=== PATIENT | male | born 1940 | race Caucasian/White ===

== ENCOUNTER → 2019-05-01 13:28 | Outpatient (BNVA) | payer MEDICARE, SELFPAY | PROVIDERS: Family Provider Family Medicine; PCP Family Medicine; Visit Provider Specialist | DX: G30.9 Alzheimer's disease, unspecified (principal); F02.80 Dementia in other diseases classified elsewhere, unspecified severity, without behavioral disturbance, psychotic disturbance, mood disturbance, and anxiety; Z87.891 Personal history of nicotine dependence; Z86.73 Personal history of transient ischemic attack (TIA), and cerebral infarction without residual deficits | CPT/HCPCS: 99214 ==

== ENCOUNTER 2019-09-24 12:30 | Outpatient (CLI) | payer MEDICARE, SELFPAY ==
--- NOTE | 2019-09-24 13:08 | MR_ITS ---
WS: [id number] MRI HEAD WITH CONTRAST WITH ATTENTION TO THE INTERNAL AUDITORY CANALS TECHNIQUE: Sagittal T1, T2 axial, T2 axial flair, axial susceptibility weighted imaging, axial diffus ion weighted images, and coronal T2 images were obtained. Pre and post T1 axial and post T1 coronal i mages. ADC and FSPGR images. Post gadolinium images with attention to the internal auditory canals. A xial fiesta imaging. CLINICAL INFORMATION: MIXED CONDUCTIVE AND SENSORINEURAL HEARING LOSS COMPARISON: None. FINDINGS: No evidence of restricted diffusion to suggest acute ischemia. Ventricular system and basal cisterns are patent. Advanced small vessel changes with moderate to advanced parenchymal volume loss. Chronic infarct with encephalomalacia and gliosis involving the left frontal lobe and left parasagittal occip ital lobe. A few tiny periventricular lacunar infarcts. Opacification right mastoid air cells. Loss of the left ICA flow at the skull base likely due to watch adjuster jak occlusion. Normal basilar and right ICA flow void. Paranasal sinuses are well aerated. Prominent pannus at the C1-2 articulation. Small left parotid lesion likely incidental adenoma or intraparotid lymph node measuring 6 mm. Proximal 7th and 8th cranial nerves are normal in appearance. Normal trigeminal nerve root entry zone s. Moderate symmetric atrophy involving the temporal lobes and hippocampal formations. Normal optic c hiasm and pituitary infundibulum. Normal visualized dural venous sinuses. No abnormal intracranial en hancement. MR/MR iac's wo/w con* [id number] IMPRESSION: 1. No evidence of restricted diffusion to suggest acute ischemia. 2. No evidence of enhancing IAC or CP angle mass. Normal trigeminal nerve root entry zones. 3. Opacification right mastoid air cells. 4. Advanced small vessel changes with advanced parenchymal volume loss. 5. Chronic infarct with encephalomalacia and gliosis described above. 6. 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
[2019-09-24 13:56] LABS: Blood Urea Nitrogen 8 mg/dL (8-23)
== END 2019-09-24 12:31 | disposition home or self-care (01) ==
LOC: RADWPI 12:51
PROVIDERS: Family Provider Family Medicine; PCP Family Medicine; Visit Provider Specialist
DX: H90.6 Mixed conductive and sensorineural hearing loss, bilateral (principal); G93.89 Other specified disorders of brain; I65.22 Occlusion and stenosis of left carotid artery
CPT/HCPCS: 70553; 82565; 84520; A9579

== ENCOUNTER 2020-01-03 06:53 | Day surgery (SDC) | payer MEDICARE, SELFPAY ==
[2020-01-02 14:10] VITALS: BMI 19.8
[2020-01-03] VITALS (8 sets, daily range): BP systolic 120–178; BP diastolic 72–96; PULSE 75–121; RESP 16–22; TEMP 36.6–37; O2SAT 92–99
[2020-01-03] MEDS: sodium chloride 0.9% 1,000 ML 30 ML IV (07:38)
--- NOTE | 2020-01-03 07:53 | ECG_ITS ---
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 Measurements Intervals Tucker Rate: 72 P: -56 DE: 169 QRS: -2 QRSD: 81 T: 54 QT: 388 QTc: 426 Interpretive Statements SINUS RHYTHM WITH SINUS ARRHYTHMIA SEPTAL MYOCARDIAL INFARCTION [40+ ms Q WAVE IN V1/V2], OF INDETERMINATE AGE Compared to ECG 11/07/2018 16:49:53 Myocardial infarct finding now present Electronically Signed On 01-04-2020 8:25:15 CDT by Lenka Ann M.D. [id number]
--- NOTE | 2020-01-03 07:54 | ANES.PREANE2 ---
Pre-Anesthetic Assessment Pre-Anesthetic Assessment: Height/Weight: Height 1.73 m Weight 58.967 kg Temp Pulse Resp BP Pulse Ox 97.9 F 75 18 178/95 93 01/03/20 07:17 01/03/20 07:17 01/03/20 07:17 01/03/20 07:17 01/03/20 07:17 Preop Diagnosis: LUNG MALIGNANCY Proposed Procedure: Operation Date: 01/03/20 08:25 Proposed Procedures p Ebus(Not Applicable) - Paty Gan MD Familial anesthetic complications: None Was Beta Kamini taken within 24 hours: N/A Last intake: Intake Last Liquid Date 01/02/20 Last Liquid Time 22:00 Last Solid Date 01/02/20 Last Solid Time 22:00 Social: Social History: No alcohol Comment: former smoker Exam: Pre-Anes Outpt Exam: alert, oriented x 3, clear to auscultation bilaterally and regular rate & rhythm Airway: Cervical ROM: WNL MP: 2 Dentition: False Pulmonary: Pulmonary: COPD (severe with decreased DLCO) Comments: lung mass CV/HEM: CV/HEM: HTN Neuropsych: Neuropsych: CVA and Dementia Comments: 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 Anesthetic Plan: ASA status: 4 Anesthesia: General Risk of > 500 ml blood loss (7ml/kg in children): No Meds/Allergies Current Medications: Current Medications Generic Name Dose Route Start Last Admin Trade Name Freq PRN Reason Stop Dose Admin Sodium Chloride 1,000 mls @ 30 ml s/hr 01/03/20 07:15 01/03/20 07:38 Sodium Chloride 0.9% IV 01/04/20 07:14 30 mls/hr .Q24H RIMA Administration PFSH Anesthesia PFSH: Medical History (Updated 12/11/19 @ 16:53 by Aleksandar Philippe MD) Carotid artery stenosis COPD (chronic obstructive pulmonary disease) Stroke Family History Other CAD (coronary artery disease) Cancer Social History Smoking and tobacco status: former smoker Quit status (tobacco): has quit using tobacco Year quit tobacco: 1983 - 2PPD x 40 Years Alcohol intake: former 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
--- NOTE | 2020-01-03 09:40 | P.HP_ITS ---
Same Day Surgery H&P Indication for Procedure/HPI DATE OF PROCEDURE: January 03, 2020 CHIEF COMPLAINT/INDICATIONFOR SURGICAL PROCEDURE: This is an 79-year-old gentleman with left lung mass suspicious for lung malignancy coming in for bronchoscopic evaluation. The patient has an extensive history of smoking. He smoked 2 packs/day for 25 years. The patient has a diagnosis of COPD. He gave history of significant weight loss. PREOP DIAGNOSIS: LUNG MALIGNANCY PLANNED PROCEDRUE: Bronchoscopy with inspection of the airway, endobronchial sound guided transbronchial needle aspiration of lymph nodes Operation Date: 01/03/20 08:25 Proposed Procedures p Ebus(Not Applicable) - Paty Gan MD Medications/Allergies* Home Medications Medication Instructions Recorded Confirmed Type albuterol sulfate 90 mcg/actuation 2 puff INHALATION Q6H PRN 05/01/19 01/03/20 History aerosol inhaler fluticasone furoate 100 1 inh INHALATION Q24H 05/01/19 01/03/20 History mcg-vilanterol 25 mcg/dose inhalation powder fluticasone propionate 50 1 spray INTRANASAL Q12H 05/01/19 01/03/20 History mcg/actuation nasal spray,suspension amlodipine 5 mg tablet 5 mg PO DAILY tab 06/05/19 01/03/20 History donepezil 5 mg tablet 5 mg PO DAILY tab 06/05/19 01/03/20 History pantoprazole 40 mg tablet,delayed 40 mg PO DAILY tab 06/05/19 01/03/20 History release simvastatin 40 mg tablet 40 mg PO DAILY tab 06/05/19 01/03/20 History Allergies/Adverse Reactions Allergy/AdvReac Type Severity Reaction Status Date / Time No Known Allergies Allergy Verified 01/02/20 14:01 Current Medications: Generic Name Dose Route Start Last Admin Trade Name Freq PRN Reason Stop Dose Admin Sodium Chloride 1,000 mls @ 30 mls/hr 01/03/20 07:15 01/03/20 07:38 Sodium Chloride 0.9% IV 01/04/20 07:14 30 mls/hr .Q24H RIMA Administration Pertinent History/Comorbid Conditions* Medical History (Updated 12/11/19 @ 16:53 by Aleksandar Philippe MD) Carotid artery stenosis COPD (chronic obstructive pulmonary disease) Stroke Family History (Updated 06/05/19 @ 13:41 by Thelma Carroll RN) CAD (coronary artery disease) Cancer Social History Smoking and tobacco status: former smoker Quit status (tobacco): has quit using tobacco Year quit tobacco: 1983 - 2PPD x 40 Years Alcohol intake: former Year of sobriety/quit date alcohol: 1980 Lives independently: Yes Household members: spouse Marital status: service: Yes Current occupational status: retired History of recent travel: No Current gender identity: Male Pertinent Exam Findings alert, oriented x 3, clear to auscultation bilaterally and regular rate & rhythm Recommendations Surgery/Procedure today Coding Level of Care Code Acute Portainer Operator for Valdemar Hussein
[2020-01-03] MEDS: lidocaine 1% INJ 20 mL XX (10:03)
--- NOTE | 2020-01-03 10:58 | PC.NURSE ---
EBUS BALLOON REMOVED INTACT
--- NOTE | 2020-01-03 11:00 | P.PTHFZ_ITS ---
Endobronchial Ultrasound Specimen(s): Lymph node station 7 and Lymph node station 10L Gross: 4 Difquick slides, 2 cc material blood and contents. Preliminary Impression: A. Lymph node, station 7, FNA biopsy: - Few epithelioid clusters with low grade cytology. - Lymphoid material identified (sat isfactory). - Background of benign ciliated bronchial epithelial cells. B. Lymph node, 10L, FNA biopsy: - No malignancy identified. - Scant material with a few scattered mononuclear cells - Specimen Information Pathologist: Christie Peck Date: 01/03/20 Specimen reported at what time: 10:55 - Clinician Specimen collection time: 10:50 Clinician reported to: Paty Gan
--- NOTE | 2020-01-03 11:04 | PM.OP ---
Operative Report Date of procedure: January 03, 2020 Pre-op Diagnosis: LUNG MALIGNANCY Post-op diagnosis: same Brief History: 79-year-old gentleman coming in for bronchoscopic evaluation for suspected lung malignancy. Procedure: Name of the procedure: Bronchoscopy with inspection of the airway, endobronchial ultrasound-guided transbronchial needle aspiration of lymph nodes and control of bleeding. Indication: Left hilar lung mass Anesthesia: General anesthesia. Local anesthesia: The leticia in the right and left mainstem bronchi were anesthetized with 1% lidocaine, 3 mL. Description of the procedure: The procedure was explained to the patient and the consent was obtained. The patient was brought to the OR. The patient underwent endotracheal intubation for general anesthesia. Following induction of general anesthesia, the bronchoscope was advanced through the ET tube. The lower trachea appeared to be normal. The leticia was sharp. The leticia, the right and left mainstem bronchi are anesthetized with 1% lidocaine. In a systematic manner bilateral bronchial tree was then examined. The bronchoscope was advanced into the left mainstem bronchus. There was no erythema,mucus and areas of cobblestoning. The left mainstem bronchus appeared to be narrowed due to extrinsic compression. The airway mucosa bled easily to touch from the bronchoscope. There is no endobronchial lesion, active bleeding or mucous plug. The bronchoscope was then introduced into the right mainstem bronchus. The right upper lobe, right middle lobe and right lower lobe bronchi were examined up to the third subsegmental level and no abnormalities were identified. The endobronchial ultrasound was introduced through the ET tube. Left hilar and mediastinal lymphadenopathy was identified. Fine-needle aspiration was performed from station 7 and 10 L. The bronchoscope was reintroduced. There was no significant or active bleeding. Samples: 1. The fine-needle aspiration from the aforementioned lymph node stations are sent for cytology. Complications: There was no immediate complications. The patient was extubated and brought to the PACU in stable condition.
--- NOTE | 2020-01-03 14:34 | ANE.PACU2 ---
Inpatient post-anesthesia follow up: Airway intact: Yes Vital signs: Temperature 98.6 F Pulse Rate 101 Respiratory Rate 20 Blood Pressure 120/75 Pulse Oximetry 98 Oxygen Delivery Me thod Room Air Oxygen Flow Rate 8 Fraction of Inspir ed Oxygen Hydration adequate: Yes Nausea and vomiting: No Pain level: 1 Mental status: Baseline
== END 2020-01-03 12:35 | disposition home or self-care (01) ==
PROVIDERS: Internal Medicine Critical Care Medicine; Family Provider Family Medicine; PCP Family Medicine; Visit Provider Internal Medicine Pulmonary Disease
PROC: BB4BZZZ Ultrasonography of Pleura (ICD-10-PCS; principal; 2020-01-03 08:25)
DX: R59.0 Localized enlarged lymph nodes (principal); J44.9 Chronic obstructive pulmonary disease, unspecified; I10 Essential (primary) hypertension; F03.90 Unspecified dementia, unspecified severity, without behavioral disturbance, psychotic disturbance, mood disturbance, and anxiety; Z87.891 Personal history of nicotine dependence; Z86.73 Personal history of transient ischemic attack (TIA), and cerebral infarction without residual deficits
CPT/HCPCS: 31652; 12345; 31625; 31627; 80500; 88305; 93005; J2405; J2704; J2710; J3010; J3490; J7030

== ENCOUNTER 2020-01-07 12:36 | Outpatient (CLI) | payer MEDICARE, SELFPAY ==
[2020-01-07 13:32] VITALS: BP 119/68; BP 139/69
--- NOTE | 2020-01-07 13:41 | PC.RESP ---
Patient unable to PFT
== END 2020-01-07 12:37 | disposition home or self-care (01) ==
LOC: RT 12:46
PROVIDERS: PCP Family Medicine; Visit Provider Internal Medicine Pulmonary Disease
DX: J44.9 Chronic obstructive pulmonary disease, unspecified (principal); R91.8 Other nonspecific abnormal finding of lung field
CPT/HCPCS: 94618

== ENCOUNTER 2020-01-09 13:17 | Outpatient (CLI) | payer OTHER, MEDICARE, SELFPAY ==
--- NOTE | 2020-01-09 16:10 | ONC CON_ITS ---
Dr. Gant New Patient Note Patient: Jermain Umana Unit #: [id number]: 1940 Dicatated By: Harlan Gant M.D.Date of Visit: Jan 09, 2020 Onc MED New Patient/Consult Referring Physician: Aleksandar Philippe History of Present Illness: Mr. Jermain Umana, is a 79-year-old gentleman with a history of left upper lobe lung nodule noticed in October 2018 during work-up for left carotid artery endarterectomy as per patient recently he started having right upper chest pain for which he underwent CT scan of chest on December 03, 2019 which showed left hilar mass size 3 x 3 x 2 cm subsequently he was referred to pulmonology and patient underwent CT PET scan on December 21, 2019 which showed 2.5 x 3.2 cm left upper lobe lung mass with SUV of 8.1 representing progression since previous PET scan and also there is a new adjacent infiltrate most likely obstructive atelectasis. Suspicious upper left hilar node which measures roughly 2.2 centimeter with SUV of 6.6 and a new, questionable activity is present in the left internal mammary lymph node. 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 Patient has history of smoking about 2 packs a day for 25 years started at age 14 quit when he was 38 years old. Now he has underlying COPD. Patient said he has lost about 30 pounds in over 1 month because of poor appetite. Patient denies any headaches blurred vision double vision, denies any focal weakness or any bony pain off and on right upper anterior chest wall pain. But no history of trauma to the right chest. Past Medical History: Mr. Hinkle medical history consists of Alzheimer's disease, carotid artery stenosis, chronic obstructive pulmonary disease, gout, hypertension, and stroke. Past Surgical History: Mr. Hinkle surgical/procedural history consists of bronchoscopy, carotid artery, carpal tunnel x2, cholecystectomy, and hemrroid removal. Medications: Breo Ellipta 1 (100-25 mcg/inh) Aerosol Powder, Breath Activated Inhalation daily, Donepezil HCl 1 Tablet (of 5 mg) Oral at bedtime, Flonase Allergy Relief 1 (50 mcg/act) Suspension Nasal daily, Norvasc 1 Tablet (of 5 mg) Oral daily, Pantoprazole Sodium 1 Tablet (of 40 mg) Tablet, enteric coated Oral daily, prednisoLONE Acetate 1 Drop(s) (of 1 %) Suspension Ophthalmic b.i.d., Zocor 1 Tablet (of 40 mg) Oral daily Allergies: No Known Allergies. Social History: Mr. Umana is . Mr. Umana quit smoking 35 years ago but had smoked 2.0 packs/day for 36 years. He has no history of drinking. Family History: Mr. Umana's mother at age 57: lung cancer, and colon cancer. Mr. Umana's father at age 90. Mr. Umana has 3 brothers: 3 . Mr. Umana's first brother's gun shot. Another brother's car accident. Another brother's drug overdose. He has 1 sister who is : lung cancer. Review Of Symptoms: Constitutional - Appetite is poor and weight is decreasing. No fever, night sweats, or hot flashes. Energy level is poor, ENMT - No sinus congestion/drainage. No mouth sores. No sore throat or difficulty swallowing, Hematologic/Lymphatic - Positive for easy bruising, Respiratory - Positive for shortness of breath and cough. No pleuritic pain or hemoptysis, Cardiovascular - No angina pain. No palpitations, Gastrointestinal - No nausea or vomiting. No heartburn or acid reflux. No diarrhea or constipation. No blood in the stool or black stools, Genitourinary (M) - No dysuria or hematuria. Positive for urinary frequency. No urgency or incontinence, Musculoskeletal - No joint or bone pain, Neurologic - No headache or dizziness. No numbness or tingling. No other focal neurologic symptoms, Psychiatric - No anxiety or depression. Positive for insomnia. Vital Signs: Performed on Jan 09, 2020 14:35: 1, 19.89, 1.71 sq.m, 68.00 in, 94 % (LOW), 71 /min, 18 /min, 127/72 mm(hg), 98.5 F, and 130.8 lbs (HIGH). Performance Status: 0 - Fully active, able to carry on all predisease activities without restrictions. (ECOG) Physical Examination: ENMT - No mouth sores, no thrush, no jaundice, Respiratory - Lungs are clear to auscultation, Cardiovascular - Regular rate and rhythm of heart, Abdomen - Soft, bowel sounds present, Extremities - No visible edema. Lab/Imaging: Most recent lab results are not available for this patient. 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 Plan: Discussed with patient regarding his bronchoscopy/pathology report as well as CT PET scan findings, clinically patient has stage IIb disease with biopsy-proven left hilar involvement, due to underlying comorbid condition including COPD, as well as age, not a candidate for surgery, second best option, assuming MRI scan of the brain shows no brain mets, ]would be combined chemoradiation with weekly carboplatin/Taxol concurrent with radiation therapy. All the side effects possible benefits associated with weekly carboplatin/Taxol were discussed including but not limited to bone marrow suppression, hair loss, nausea vomiting, allergic reaction especially with Taxol, peripheral neuropathy, hyperglycemia with steroids were mentioned further teaching will be done by chemotherapy nurse. Will obtain approval from his insurance prior to the treatment. we will complete staging work-up with MRI scan of the head We will also refer him for Port-A-Cath placement to facilitate chemotherapy. And refer him to radiation oncology for evaluation and treatment. Patient return to clinic 1 week after chemoradiation is initiated, Signed By: Harlan Gant M.D. <<Signature on File>>
== END 2020-01-09 13:18 | disposition home or self-care (01) ==
PROVIDERS: PCP Family Medicine; Visit Provider Internal Medicine Hematology & Oncology
DX: C34.12 Malignant neoplasm of upper lobe, left bronchus or lung (principal); C77.1 Secondary and unspecified malignant neoplasm of intrathoracic lymph nodes; J44.9 Chronic obstructive pulmonary disease, unspecified; M1A.9XX0 Chronic gout, unspecified, without tophus (tophi); I10 Essential (primary) hypertension
CPT/HCPCS: 99203

== ENCOUNTER 2020-01-13 11:13 | Outpatient (CLI) | payer MEDICARE, SELFPAY ==
--- NOTE | 2020-01-13 11:17 | MR_ITS ---
WS: [id number] MRI BRAIN WITH AND WITHOUT CONTRAST HISTORY: LUNG CANCER COMPARISON: 09/24/2019 TECHNIQUE: Multiplanar imaging performed through the brain with Prohance 13 ml's IV. No acute infarcts are seen. Johnson-white matter differentiation is well preserved. Chronic stable infar cts with encephalomalacia and volume loss in the LEFT frontal and LEFT parasagittal occipital lobe. S mall amount of hemorrhagic component associated with the infarcts. Very similar in appearance without progression as compared to 09/24/2019. Severe chronic white matter ischemic changes, greatest throughout the LEFT cerebrum. Additional tiny periventricular lacunar infarcts are again identified. Ventricles and extra-axial spaces are prominent on the basis of atrophy. Clivus and pituitary gland are normal. Visualized posterior fossa and brainstem are also normal. Enhancing masses are identified. There is no evidence for metastatic disease. Dural venous sinuses are normal. Again noted is obstruction of the LEFT ICA at the skull base. Simila r to the prior study also. Paranasal sinuses: Well aerated with no significant disease. Mastoid air cells: Fluid in the RIGHT mastoid air cells. Calvarium and scalp: No calvarial abnormality. Previously described lesion in the LEFT parotid gland is not as well visualized on today's examination. MR/MR head wo/w con [id number] IMPRESSION: 1. No metastatic disease to the brain. 2. Large remote infarcts in the RIGHT frontal and LEFT occipital lobes. 3. Extensive encephalomalacia and chronic microvascular ischemic disease and p rior lacunar infarcts. 4. RIGHT mastoid air cell opacification. 5. Chronic occlusion LEFT ICA.
== END 2020-01-13 11:14 | disposition home or self-care (01) ==
PROVIDERS: Family Provider Family Medicine; PCP Family Medicine; Visit Provider Internal Medicine Hematology & Oncology
DX: C34.12 Malignant neoplasm of upper lobe, left bronchus or lung (principal); I63.9 Cerebral infarction, unspecified; G93.89 Other specified disorders of brain; I65.22 Occlusion and stenosis of left carotid artery
CPT/HCPCS: 70553; A9579

== ENCOUNTER 2020-01-22 08:29 | Outpatient (CLI) | payer OTHER, MEDICARE, SELFPAY ==
--- NOTE | 2020-01-22 09:35 | CT_ITS ---
WS: [id number] CT CHEST TECHNIQUE: Contrast enhanced CT of the chest with coronal and sagittal reformatted images. CLINICAL INFORMATION: LUNG CANCER COMPARISON: CT chest December 03, 2019 and PET/CT December 21, 2019 DLP: 398.[address] scans at [facility] use at least one of these dose optimization techniques: automat ed exposure control; mA and/or kV adjustment per patient size (includes targeted exams where dose is matched to clinical indication); or iterative reconstruction. FINDINGS: Again seen is the left hilar and suprahilar soft tissue mass consistent with neoplasm measuring appro ximately 6.4 x 3.1 x 4.5 CM. Left upper lobe infiltrate extending along the medial left upper lobe an d anterior mediastinum has improved since the prior examination likely due to postobstructive pneumon ia. Narrowing of the left distal main stem bronchus and left upper lobe bronchus. No evidence of inte rnal mammary lymphadenopathy. Aortic calcification. Normal caliber thoracic aorta. Proximal main pulmonary arteries are patent. No anterior mediastinal or right hilar lymphadenopathy. No subcarinal lymphadenopathy.Pleural thickening along the right fissure is unchanged. Mild diffuse fatty infiltration the liver. Cholecystectomy clips. Adrenal glands are normal. Hypertro phic changes thoracic spine with ankylosis. CT/CT chest w con* [id number] IMPRESSION: 1. Stable left hilar and suprahilar mass measuring 6.4 x 3.0 x 4.5 CM. Finding s compatible with known neoplasm not significantly changed. 2. Adjacent left upper lobe infiltrate extending to the anterior mediastinum i s improved since the prior PET/CT. Associated soft tissue thickening and atelec tasis has improved. No internal mammary lymphadenopathy. 3. Narrowing of the left distal main stem and upper lobe bronchus. 4. No other significant interval changes from previous.
[2020-01-22 10:13] LABS: Blood Urea Nitrogen 15 mg/dL (8-23)
[2020-01-22] MEDS: iohexol 300 mg/mL 100 mL Btl IV (10:32)
== END 2020-01-22 08:30 | disposition home or self-care (01) ==
LOC: RAD 08:34
PROVIDERS: PCP Family Medicine; Visit Provider Radiology Radiation Oncology
DX: C34.90 Malignant neoplasm of unspecified part of unspecified bronchus or lung (principal); R91.8 Other nonspecific abnormal finding of lung field
CPT/HCPCS: 36415; 71260; 82565; 84520

== ENCOUNTER → 2020-01-23 13:31 | Outpatient (BNVA) | payer OTHER, MEDICARE, SELFPAY | PROVIDERS: PCP Family Medicine; Visit Provider Surgery | DX: Z20.828 Contact with and (suspected) exposure to other viral communicable diseases (principal) | CPT/HCPCS: 87635 ==

== ENCOUNTER 2020-01-28 11:53 | Day surgery (SDC) | payer MEDICARE, SELFPAY ==
--- NOTE | 2020-01-28 | SCC_ITS ---
Procedure Done: Placement of PowerPort in the right subclavian vein under fluoroscopic guidance and all interpretation of fluoroscopy was done by me through the whole entire procedure. 16.8 seconds of fluoroscopic guidance, for a cumulative dose of 1.54 mGy, was provided to Dr. West by the radiology department. C-arm images of the chest were saved for the patient's permanent record. AMITA
--- NOTE | 2020-01-28 12:02 | SC_ITS ---
WS: [id number] C-ARM RADIOGRAPHS CHEST; 2 IMAGES HISTORY: Port-A-Cath placement COMPARISON: None available. Intraoperative imaging during Port-A-Cath placement. Distal tip overlies the distal SVC. SC/C-arm FL for CVA [id number] IMPRESSION: Intraoperative imaging during Port-A-Cath placement.
[2020-01-28 12:10] VITALS: BP 127/79; PULSE 80; RESP 18; TEMP 36.2; O2SAT 93
[2020-01-28] MEDS: sodium chloride 0.9% 1,000 ML 30 ML IV (12:26)
--- NOTE | 2020-01-28 12:40 | P.ANESASSM_ITS ---
Pre-Anesthetic Assessment Pre-Anesthetic Assessment: Height/Weight: Height 1.73 m Weight 59.874 kg Temp Pulse Resp BP Pulse Ox 97.1 F L 80 18 127/79 93 01/28/20 12:10 01/28/20 12:10 01/28/20 12:10 01/28/20 12:10 01/28/20 12:10 Preop Diagnosis: Lung cancer Proposed Procedure: Operation Date: 01/28/20 13:30 Proposed Procedures p Portacath Placement 68678 c34.92(Not Applicable) - David West MD Familial anesthetic complications: None Was Beta Kamini taken within 24 hours: N/A Last intake: Intake Last Liquid Date 01/27/20 Last Liquid Time 18:30 Last Solid Date 01/27/20 Last Solid Time 18:30 Social: Social History: Tobacco and No alcohol Comment: former smoker Exam: Pre-Anes Outpt Exam: alert, oriented x 3, clear to auscultation bilater ally and regular rate & rhythm Airway: Cervical ROM: WNL MP: 2 Dentition: False Pulmonary: Pulmonary: COPD Comments: SCC of left lung CV/HEM: CV/HEM: HTN Neuropsych: Neuropsych: CVA and Dementia Comments: 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 L CEA in 2019 Anesthetic Plan: ASA status: 4 Anesthesia: MAC Risk of > 500 ml blood loss (7ml/kg in children): No Meds/Allergies Current Medications: Current Medications Generic Name Dose Route Start Last Admin Trade Name Freq PRN Reason Stop Dose Admin Sodium Chloride 1,000 mls @ 30 ml s/hr 01/28/20 12:15 01/28/20 12:26 Sodium Chloride 0.9% IV 01/29/20 12:14 30 mls/hr .Q24H RIMA Administration PFSH Anesthesia PFSH: Medical History Carotid artery stenosis COPD (chronic obstructive pulmonary disease) Stroke Family History Other CAD (coronary artery disease) Cancer Social History Smoking and tobacco status: former smoker Quit status (tobacco): has quit using tobacco Year quit tobacco: 1984 - 2PPD x 40 Years Second hand smoke exposure: No Smoking risk assessment/counseling performed?: No Alcohol intake: former 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
--- NOTE | 2020-01-28 13:26 | W.PM.OPSUD ---
Surgery/Procedure H&P Update DATE OF PROCEDURE: January 28, 2020 DATE H&P PERFORMED: 01/23/20 H&P UPDATE INFORMATION: I have reviewed H&P completed within last 30 days, I have examined patient prior to procedure and No changes to prior documentation PREOP DIAGNOSIS: Lung cancer PRIMARY INDICATION FOR PROCEDURE: The same PLANNED PROCEDURE: Operation Date: 01/28/20 13:30 Proposed Procedures p Portacath Placement [id number] c34.92(Not Applicable) - David West MD
[2020-01-28] MEDS: lidocaine 2% INJ 20 mL INJECTION (13:57)
[2020-01-28] MEDS: heparin, porcine 1,000 unit/mL INJ 10 mL 10000 UNIT IRRIGATION (13:58)
--- NOTE | 2020-01-28 14:11 | PM.OP ---
Operative Report Date of procedure: January 28, 2020 Pre-op Diagnosis: Lung cancer Post-op diagnosis: same Post-op Findings: Normal anatomy of right subclavian vein Procedure Done: Placement of PowerPort in the right subclavian vein under fluoroscopic guidance and all interpretation of fluoroscopy was done by me through the whole entire procedure. Implants: Right subclavian vein PowerPort placement Surgeon: David West [employer] Course Laborer: compliance field technician Whitney Circulating nurse Paula Anesthesia: MAC (PENELOPE Melara) Estimated blood loss (mL): 5 Condition: stable Disposition: same day Brief History: This is a pleasant 79 years old diagnosed with lung cancer requiring Port-A-Cath placement . plan of care; After thorough history physical examination and reviewing the chart, I counseled the patient for Port-A-Cath placement, indications, risks including pneumothorax and injury of major vascular structures, benefits,indications and alternatives were all discussed with the patient, patient understands and is interested to proceed. Rationale was carefully and clearly discussed with the patient.Appropriate informed consent have been reviewed and signed. Procedure: Patient was identified in the holding area and taken to the operative room and placed in supine position IV propofol was given by the anesthesia provider ,both arms were tucked,Time-out was done verifying the patient's name/date of /planned procedure and destination after the procedure, all were in agreement. SCDs confirmed to be functioning, preoperative antibiotics administered per protocol, and beta sergio protocol was confirmed, appropriate positioning of the patient was done by me. Medications were reviewed to assess for anticoagulant usage. Risks and benefits and prevention of central line associated blood stream infection (CLABSI) were discussed with the patient/CPOA, and a consent was obtained. Monitors were in place and monitored throughout the procedure. All necessary supplies were available prior to start. Hand hygiene was completed prior to starting. Maximum barrier technique was utilized including a sterile gown, sterile gloves with a hat and mask. Site was was prepped with [chlorhexidine] and a full body drape was placed. 5 mL of 2% lidocaine was injected into the skin with a 25 gauge needle. Prep& drape was done under the usual sterile technique, lidocaine 2% was injected at the site of the stick, started by right subclavian stick that retrieved venous blood was obtained from the first stick, a guidewire was then threaded and under the guidance of fluoroscopy position was confirmed to be in the IVC and my interpretation, there was no PVC changes, at that point the guidewire was secured to the drapes with a hemostat and the needle was taken out, attention was then deviated towards creation of a pocket for the port were lidocaine 2% was injected using an 15 blade knife skin incision was created dissection using the Bovie to create a pocket for the PowerPort to be accommodated, hemostasis was secured, after the port being appropriately flushed it was inserted into the pocket and a tunneler was used to accommodate the catheter of the port cath to be delivered through the incision first created at the site of the stick, at that point under fluoroscopy an estimated length was measured for the catheter and was cut at the designed level, followed by that a dilator with the sheath introduced onto the guidewire the dilator and the wire were retrieved and the catheter of the port was introduced via the sheath where it was peeled off and the catheter maintained to be in the SVC that was confirmed with fluoroscopy, and the fluoroscopy interpretation was done by me throughout the entire procedure. The port was left in its pocket in a stable position.3-0 Vicryl deep subdermal interrupted sutures, skin was then closed by 4-0 Monocryl as subcuticular closure. The stick site was closed by 3-0 Vicryl and surgical glue was used followed by dressing. Patient tolerated the procedure well was taken to the recovery area Count was correct at the end of the procedure I was present for the whole entire procedure Position of the catheter was checked with a postoperative chest x-ray and it was in good position without evidence of pneumothorax
--- NOTE | 2020-01-28 14:20 | XRR_ITS ---
PROCEDURE INFORMATION: Exam: XR Chest, 1 View Exam date and time: 01/28/2020 2:36 PM Age: 79 years old Clinical indication: Device placement; Other: Status post right subclavian vein powerport placement; Prior surgery; Surgery date: Post-operative (0-2 days) TECHNIQUE: Imaging protocol: XR of the chest Views: 1 view. COMPARISON: CT chest w con* [id number] 01/22/2020 10:27 AM FINDINGS: Lungs: Interstitial congestion is seen in the left lower lobe No consolidation. Pleural space: Unremarkable. No pleural effusion. No pneumothorax. Heart/Mediastinum: Left hilar soft tissue mass is seen with irregular borders. This finding is consistent with a lung tumor and was seen on prior CT chest examination. No cardiomegaly. Bones/joints: Unremarkable. A right central line is in place extending into the SVC XR/XR chest 1V portable [id number] IMPRESSION: 1. Left hilar soft tissue mass consistent with tumor 2. Left lower lobe interstitial congestion. 3. Right central line extending into the SVC
[2020-01-28 14:32] VITALS: BP 125/89; PULSE 62; RESP 16; TEMP 36.1; O2SAT 99
[2020-01-28 15:12] VITALS: BP 145/88; PULSE 69; RESP 18; O2SAT 97
[2020-01-28] MEDS: HYDROcodone-acetaminophen 5-325 mg Tablet 1 TAB PO (15:23)
== END 2020-01-28 15:50 | disposition home or self-care (01) ==
PROVIDERS: PCP Family Medicine; Visit Provider Surgery
PROC: (CPT 36561; principal; 2020-01-28 13:10)
DX: C34.90 Malignant neoplasm of unspecified part of unspecified bronchus or lung (principal); I10 Essential (primary) hypertension; J44.9 Chronic obstructive pulmonary disease, unspecified; Z86.73 Personal history of transient ischemic attack (TIA), and cerebral infarction without residual deficits; F03.90 Unspecified dementia, unspecified severity, without behavioral disturbance, psychotic disturbance, mood disturbance, and anxiety; Z87.891 Personal history of nicotine dependence
CPT/HCPCS: 36561; 12345; 71045; 76000; 77001; C1788; J0690; J1644; J2704; J3010; J7030

== ENCOUNTER 2020-02-14 05:44 | Outpatient (RCR) | payer OTHER, MEDICARE, SELFPAY ==
--- NOTE | 2020-01-20 | CT_ITS ---
Radiation Therapy Planning CT images; total exam DLP: 767.68 mGy-cm MTDD
--- NOTE | 2020-01-23 11:34 | N.ONRAD NP_ITS ---
Radiation Oncology New Patient Visit Patient: Jermain Umana MR#: [id number] : 1940 Age: 79 Sex: Male Dictated by: Dr. 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 Purpose of Visit: Discuss the role of radiotherapy with curative intent. Chief Complaint / History of Present Illness: The patient is an 79-year-old male with a 90-ldih-wovf history of smoking and an incidentally found left hilar fullness (10/2018) during work-up for a planned left carotid artery endarterectomy. Plain films of the chest (10/25/2019, 10/30/2019, and 11/28/2019) revealed persistent left hilar fullness. A subsequent CT of the chest (12/03/2019) revealed a 3 x 3 x 2 cm irregular mass superior to the left hilum On 01/03/2020 the patient underwent bronchoscopy with fine-needle aspiration of a subcarinal node and lymph node within left station 7. The left mainstem bronchus appeared to be narrowed due to extrinsic compression. Pathology revealed squamous cell carcinoma involving the sampled lymph node in left station 10, and benign findings the sampled lymph node in station 7. PET/CT (12/21/2019) revealed a 3.2 cm FDG avid left upper lobe mass, a suspicious FDG avid left hilar lymph node, and questionable activity within the left internal mammary lymph nodes. MRI of the brain (01/13/2020) revealed no evidence of metastatic disease to the brain. Due to concerns raised on the PET/CT of left internal mammary lymph node involvement, a subsequent CT of the chest (01/22/[address] chest 12/03/2019 and PET/CT 12/21/2019) was ordered. This revealed a stable left hilar and suprahilar mass measuring 6.4 x 3.0 x 4.5 cm and improved left upper lobe infiltrate extending into the anterior mediastinum since the prior PET/CT. Furthermore, the associated soft tissue thickening and atelectasis has also improved and there was no internal mammary lymphadenopathy on this CT. Thus the previous concern for left internal mammary lymph node involvement is most likely to be inflammatory in nature rather than malignant. In consultation today, the patient reports no shortness of breath, no bone pain, and no hemoptysis. Current Medications: Breo Ellipta, donepezil HCl, flonase Allergy Relief, norvasc, pantoprazole Sodium, prednisoLONE Acetate, zocor. Allergies: No Known Allergies Medical History: - Alzheimer's disease, - carotid artery stenosis, - chronic obstructive pulmonary disease, - gout, - hypertension, - stroke. No history of collagen vascular disease. No previous radiation therapy. Surgical History: Bronchoscopy, carotid artery, carpal tunnel x2, cataracts (12/19/19 left eye and 01/16/20 right eye), cholecystectomy and hemorrhoid removal. Family History: Father is at age 90. Mother is at age 57 having experienced lung cancer, and colon cancer. Brother is at age 23 having experienced car accident. Brother is at age 45 having experienced drug overdose. Brother is at age 31 having experienced gun shot. Sister is having experienced lung cancer. Social History: Last screened on 01/20/2020 - Yes - but has quit for 35 years. Smoked 2.0 packs/day for 36 years (72 pack years). Last screened on 01/09/2020 - Never drank. Current Complaints / Review of Systems: Constitutional - Complains of change in weight down about 30 lbs. in the last 2 years. Denies lack of appetite, fatigue, fever and night sweats. Eyes - Denies blurred vision and double vision. ENMT - Complains of ear pain on the left side occasionally. Complains of problems with hearing. Denies dysphagia, mouth dryness, stomatitis, altered taste and tinnitus. Neck - Complains of decreased range of motion to the left. Denies neck pain. Integumentary - Denies rash. Cardiovascular - Denies arrhythmias, chest pain and edema. Respiratory - Complains of cough which is non-productive. Complains of chronic dyspnea. Complains of wheezing occasionally. Denies hiccoughs. Gastrointestinal - Complains of satiety. Denies abdominal pain, constipation, diarrhea, heartburn / dyspepsia, melena / GI bleeding, nausea and vomiting. Genitourinary (M) - Complains of nocturia gets up about 4 times per night. Denies dysuria and urgency. Musculoskeletal - Denies bone pain, joint pain and muscle weakness. Neurologic - Denies dizziness, abnormal gait and headaches. Endocrine - Denies diabetes and hot flashes. Hematologic/Lymphatic - Denies tender or enlarged lymph nodes.. Vital Signs: Performed on 01/20/2020 11:22 AM BMI - 20.01 kg/m2, Height - 68.00 in, Weight - 131.6 lbs, Temperature - 97.9 f, Pulse - 65, Respiration - 20, O2 Sat - 93 % (low), Pain - 0 and BP - 125/ 70 mm(hg). Physical Exam: GENERAL:??? The patient is alert, and in no acute distress. HEENT:??? Head is normocephalic. Face is symmetric. External ocular movements are intact. Sclera and conjunctivae are non erythematous. NECK:??? Trachea is midline.??? Thyroid is not enlarged by palpation.??? LYMPH NODES:??? There is no cervical or supraclavicular adenopathy bilaterally. LUNGS:??? Clear to auscultation bilaterally. Respiratory movement is unlabored. HEART:??? Regular rate and rhythm. EXTREMITIES:??? No deformities. NEUROLOGIC:??? Gait and station are normal.??? The patient is well coordinated and strength is equal bilaterally. WASHERY ENGINEER:??? Cranial nerves II-XII are intact and without focal deficits.??? Psych: Affect is normal. Skin: Cursory review of the skin reveals no obvious lesions concerning for malignancy. Performance Status: 1 - No physically strenuous activity, but ambulatory and able to carry out light or sedentary work (e.g. office work, light house work). (ECOG) Pathology: Primary, c34.12 - malignant neoplasm of upper lobe, left bronchus or lung, Diagnosed 10/18/2019 (active). Imaging: Radiographic imaging discussed and this report was personally reviewed by me. Impression: The patient is an 79-year-old male with Stage IIIa (T3N1M0) squamous cell carcinoma region originating in the left upper lobe of lung. I recommended that the patient be treated with concurrent chemoradiation therapy to an aggregate dose of 60 Gy in 30 fractions followed by durvalumab as clinically prudent. Dr. Gant intends to treat concurrently with weekly carbotaxol. A repeat CT of the chest (01/22/2020 vs PET/CT dated 12/21/[address] chest dated 12/03/2019) characterized the left hilar and suprahilar soft tissue mass consistent with a neoplasm as a ???stable [. . .] mass measuring approximately 6.4 x 3.1 x 4.5 cm???. We will begin treatment planning this week. Signed by: 01/23/2020 11:31:56 AM <<Signature on File>> Time spent with patient: CPT Code: CPT Code:
[2020-02-03 09:11] LABS: Basophils % 0.1 %; Hemoglobin 14.4 g/dL (11.7-16.6); Lymphocytes # 0.3 10^3/uL (0.8-4.8); Lymphocytes % 2.8 %; Mean Corpuscular HGB Conc 31.3 g/dL (30.0-36.0); Mean Corpuscular Hemoglobin 31.2 pg (28.0-34.0); Mean Corpuscular Volume 99.8 fL (80-94); Mean Platelet Volume 11.3 fL (7.4-10.4); Monocytes % 0.3 %; Neutrophils # 10.88 10^3/uL (1.8-7.7); Neutrophils % 96.6 %; Nucleated Red Blood Cells % 0 %; Platelet Count 185 10^3/cmm (130-400); Red Blood Count 4.61 10^6/uL (4.1-5.3); Red Cell Distribution Width 13.6 % (12.1-15.1); White Blood Count 11.3 10^3/uL (4.0-10.0)
[2020-02-03 09:35] LABS: Alanine Aminotransferase 22 U/L (0-41); Albumin Level 4.4 g/dL (3.5-5.2); Alkaline Phosphatase 117 IU/L (40-130); Anion Gap 18.1 (5-19); Aspartate Amino Transferase 23 U/L (0-40); Blood Urea Nitrogen 20 mg/dL (8-23); Calcium 10.1 mg/dL (8.5-10.5); Carbon Dioxide 23 mmol/L (22-29); Chloride 103 mmol/L (98-107); Globulin 2.8 g/dL (1.3-4.6); Glucose 320 mg/dL (65-115); Osmolality Calculated 305 mOsm/kg (285-295); Potassium 4.1 mmol/L (3.5-5.1); Sodium 140 mmol/L (136-145); Total Bilirubin 0.6 mg/dL (0.15-1.2); Total Protein 7.2 g/dL (6.6-8.7)
[2020-02-03] MEDS: sodium chloride 0.9% 250 ML 75 ML IV (10:05)
--- NOTE | 2020-02-04 17:50 | ONCRAD TMN_ITS ---
Radiation Oncology Weekly Treatment Management Patient: Dong Aly MR#: [id number] : 1940 Age: 79 Sex: Male Dictated by: Dr. Colby Saldaña Date of Service: 02/04/2020 Referring Physician(s) : Diagnosis: T3 N1 M0 squamous cell carcinoma originating in the left upper lobe of lung. Treatment plan: 60 Gy in 30 fractions concurrent with weekly carbotaxol followed by durvalumab. Radiotherapy to date: Course: LT Lung [id number], Treatment Site: LT Lung 60Gy, Ref. ID: [id number], Energy: 15X/6X, Dose/Fx (cGy): 200, #Fx: 2 / 30, Dose Correction (cGy): 0, Total Dose (cGy): 400, Start Date: 02/03/2020, Elapsed Days: 1 Reason for visit: The patient is being seen today as part of their regularly scheduled weekly on treatment visits to assess for acute toxicities from radiotherapy. Interim History: The patient reports no progressive worsening of shortness of breath. He has a persistent nonproductive cough. Current Medications: Breo Ellipta, cARBOplatin, dexamethasone, dexamethasone Sodium Phosphate, diphenhydrAMINE HCl, donepezil HCl, famotidine in NaCl, flonase Allergy Relief, lORazepam, norvasc, pACLitaxel, palonosetron HCl, pantoprazole Sodium, prednisoLONE Acetate, prochlorperazine Maleate, zocor. Allergies: No Known Allergies Vital Signs: Performed on 02/04/2020 9:37 AM BMI - 20.284 kg/m2, Height - 68.00 in, Weight - 133.4 lbs, Temperature - 97.9 f, Pulse - 75, Respiration - 22, O2 Sat - 95 % (low), Pain - 0 and BP - 125/ 71 mm(hg). Physical Exam: Lungs are clear to auscultation. Performance Status: 1 - No physically strenuous activity, but ambulatory and able to carry out light or sedentary work (e.g. office work, light house work). (ECOG) Lab: None pending in Radiation Oncology. Test performed on 02/03/2020 8:45 AM WBC - 11.3 10 3/ul (high), MCV - 99.8 fl (high), MPV - 11.3 fl (high), Neutrophils - 10.88 10 3/ul (high), Lymphocytes - 0.3 10 3/ul (low), Monocytes - 0.0 10 3/ul (low), Cr Clearance (Est) - 48.9200 ml/min (low), Glucose - 320 mg/dl (high) and Osmolality - Calculated - 305 mosm/kg (high). Imaging: Radiation therapy imaging related to accurate target localization (i.e. KV, MV and CBCT) was reviewed. Appropriate changes, if any, were made to ensure treatment accuracy. Plan: The patient is tolerating therapy reasonably well. Radiotherapy will continue as planned. CPT: 32645 Signed by: Dr. Colby Saldaña 02/04/2020 5:49:54 PM
[2020-02-12 09:07] LABS: Basophils % 0.2 %; Hematocrit 42.4 % (42.0-52.0); Hemoglobin 13.4 g/dL (11.7-16.6); Lymphocytes # 0.2 10^3/uL (0.8-4.8); Lymphocytes % 2.9 %; Mean Corpuscular HGB Conc 31.6 g/dL (30.0-36.0); Mean Corpuscular Hemoglobin 31.4 pg (28.0-34.0); Mean Corpuscular Volume 99.3 fL (80-94); Mean Platelet Volume 10.8 fL (7.4-10.4); Monocytes % 0.2 %; Neutrophils # 5.23 10^3/uL (1.8-7.7); Neutrophils % 96.1 %; Nucleated Red Blood Cells % 0 %; Platelet Count 175 10^3/cmm (130-400); Red Blood Count 4.27 10^6/uL (4.1-5.3); Red Cell Distribution Width 13.3 % (12.1-15.1); White Blood Count 5.4 10^3/uL (4.0-10.0)
[2020-02-12 09:28] LABS: Alanine Aminotransferase 19 U/L (0-41); Albumin Level 4.2 g/dL (3.5-5.2); Alkaline Phosphatase 101 IU/L (40-130); Anion Gap 17.3 (5-19); Aspartate Amino Transferase 15 U/L (0-40); Blood Urea Nitrogen 18 mg/dL (8-23); Calcium 9.3 mg/dL (8.5-10.5); Carbon Dioxide 23 mmol/L (22-29); Chloride 102 mmol/L (98-107); Globulin 2.3 g/dL (1.3-4.6); Glucose 325 mg/dL (65-115); Osmolality Calculated 300 mOsm/kg (285-295); Potassium 4.3 mmol/L (3.5-5.1); Sodium 138 mmol/L (136-145); Total Bilirubin 0.5 mg/dL (0.15-1.2); Total Protein 6.5 g/dL (6.6-8.7)
[2020-02-12] MEDS: sodium chloride 0.9% 250 ML 75 ML IV (10:15)
--- NOTE | 2020-02-12 18:53 | ONCRAD TMN_ITS ---
Radiation Oncology Weekly Treatment Management Patient: Jermain Umana MR#: [id number] : 1940 Age: 79 Sex: Male Dictated by: Dr. Colby Saldaña Date of Service: 02/11/2020 Referring Physician(s) : Diagnosis: T3 N1 M0 squamous cell carcinoma originating in the left upper lobe of lung. Treatment plan: 60 Gy in 30 fractions concurrent with weekly carbotaxol followed by durvalumab. Radiotherapy to date: Course: LT Lung [id number], Treatment Site: LT Lung 60Gy, Ref. ID: [id number], Energy: 15X/6X, Dose/Fx (cGy): 200, #Fx: , Dose Correction (cGy): 0, Total Dose (cGy): 1,400, Start Date: 02/03/2020, Elapsed Days: 8 Reason for visit: The patient is being seen today as part of their regularly scheduled weekly on treatment visits to assess for acute toxicities from radiotherapy. Interim History: The patient reports no cough, or shortness of breath. Current Medications: Breo Ellipta, cARBOplatin, dexamethasone, dexamethasone Sodium Phosphate, diphenhydrAMINE HCl, donepezil HCl, famotidine in NaCl, flonase Allergy Relief, lORazepam, norvasc, pACLitaxel, palonosetron HCl, pantoprazole Sodium, prednisoLONE Acetate, prochlorperazine Maleate, zocor. Allergies: No Known Allergies Current Complaints/Review of Systems: Constitutional - Complains of mild fatigue. Denies lack of appetite, fever and night sweats. ENMT - Denies dysphagia. Cardiovascular - Denies arrhythmias. Respiratory - Denies cough, dyspnea, hemoptysis and wheezing. Vital Signs: Performed on 02/11/2020 9:19 AM BMI - 20.01 kg/m2, Height - 68.00 in, Weight - 131.6 lbs, Temperature - 97.5 f, Pulse - 88, Respiration - 20, O2 Sat - 95 % (low), Pain - 0 and BP - 106/ 69 mm(hg). Physical Exam: Lungs are clear to auscultation bilaterally. Performance Status: 1 - No physically strenuous activity, but ambulatory and able to carry out light or sedentary work (e.g. office work, light house work). (ECOG) Lab: None pending in Radiation Oncology. Test performed on 02/03/2020 8:45 AM WBC - 11.3 10 3/ul (high), MCV - 99.8 fl (high), MPV - 11.3 fl (high), Neutrophils - 10.88 10 3/ul (high), Lymphocytes - 0.3 10 3/ul (low), Monocytes - 0.0 10 3/ul (low), Cr Clearance (Est) - 48.9200 ml/min (low), Glucose - 320 mg/dl (high) and Osmolality - Calculated - 305 mosm/kg (high). Imaging: Radiation therapy imaging related to accurate target localization (i.e. KV, MV and CBCT) was reviewed. Appropriate changes, if any, were made to ensure treatment accuracy. Plan: The patient is tolerating therapy reasonably well. Radiotherapy will continue as planned. CPT: 47560 Signed by: Dr. Colby Saldaña 02/12/2020 6:51:56 PM
--- NOTE | 2020-02-12 22:11 | ONC FU_ITS ---
[facility] Patient Note Patient: Jermain Umana Unit #: [id number]: 1940 Dictated By: Prema McdanielDate of Visit: Feb 12, 2020 Onc MED Follow-Up/Prog Note Chief Complaint: Non-small cell lung cancer History of Present Illness: Mr. Umana is an 79-year-old gentleman with a history of left upper lobe lung nodule. It was first noticed in October 2018 during work-up for left carotid artery endarterectomy. He recently started having right upper chest pain for which he underwent a CT scan of chest on December 03, 2019. The CT showed left hilar mass size 3 x 3 x 2 cm. He was referred to pulmonology and underwent CT PET scan on December 21, 2019. The PET/CT reported a 2.5 x 3.2 cm left upper lobe lung mass with SUV of 8.1 representing progression since a previous PET scan (from 10/27/2018-we do not have this report available) and also there was a new adjacent infiltrate most likely obstructive atelectasis. Suspicious upper left hilar node which measures roughly 2.2 centimeter with SUV of 6.6 and a new, questionable activity is present in the left internal mammary lymph node. Mr Umana underwent bronchoscopy on January 03, 2020 which showed left main stem bronchus appears to be narrowed due to extrinsic compression but no endobronchial lesion. A fine-needle aspiration was performed from station 7 and 10 left. 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 Mr Umana has history of smoking about 2 packs a day for 25 years started at age 14 quit when he was 38 years old. Now he has underlying COPD. Patient said he has lost about 30 pounds in over 1 month because of poor appetite. 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 Therefore the second best option would be combined chemoradiation with weekly carboplatin/Taxol concurrent with radiation therapy. Mr Umana was offered treatment with combined chemoradiation. He began his first week of chemotherapy on 02/03/2020. Mr. Umana states he has been doing well. Is very jovial and answers questions appropriate today. His states has been doing good to. He denies any nausea or vomiting. He has had no fever or chills. She states he is eating good and his energy is fair. He does tire easily but recovers well with rest. He denies any urinary concerns. He denies any neuropathy. He has had some steroid-induced hyperglycemia and was given 8 units of regular insulin today. He also has had steroid-induced insomnia. He denies any new concerns. He states his breathing overall is good. His ECOG is 2. Past Medical History: Alzheimer's disease Carotid artery stenosis Chronic obstructive pulmonary disease Gout Hypertension Stroke Past Surgical History: Bronchoscopy Carotid artery Carpal tunnel x2 Cataracts - 12/19/19 left eye and 01/16/20 right eye Cholecystectomy Hemrroid removal Allergies: No Known Allergies. Medications: Breo Ellipta 1 (100-25 mcg/inh) Aerosol Powder, Breath Activated Inhalation daily Donepezil HCl 1 Tablet (of 5 mg) Oral at bedtime Flonase Allergy Relief 1 (50 mcg/act) Suspension Nasal daily Norvasc 1 Tablet (of 5 mg) Oral daily Pantoprazole Sodium 1 Tablet (of 40 mg) Tablet, enteric coated Oral daily prednisoLONE Acetate 1 Drop(s) (of 1 %) Suspension Ophthalmic b.i.d. Zocor 1 Tablet (of 40 mg) Oral daily Family History: Mr. Umana's mother at age 57: lung cancer, and colon cancer. Mr. Umana's father at age 90. Mr. Umana has 3 brothers: 3 . Mr. Umana's first brother's gun shot. Another brother's car accident. Another brother's drug overdose. He has 1 sister who is : lung cancer. Social History: Mr. Umana is . Mr. Umana quit smoking 35 years ago but had smoked 2.0 packs/day for 36 years. He has no history of drinking. Review Of Symptoms: Constitutional Denies fevers, chills, night sweats, excessive fatigue or weight loss. He states he feels really good. He has had some steroid related insomnia. Allergic/Immunologic No reactions. Eyes Denies significant visual changes. No diplopia. No amaurosis. ENMT Denies changes in hearing, sore throat, mouth sores, difficulty or changes in swallowing ability, and/or sinus drainage. Endocrine No diabetes, thyroid disease or hormone replacement. Denies hot flashes or night sweats. Hematologic/Lymphatic Denies easy bruising or bleeding. The patient denies any tender or palpable lymph nodes. Respiratory Denies dyspnea on exertion, chest pain, cough or hemoptysis. Denies orthopnea. Cardiovascular Denies anginal chest pain, palpitations or orthopnea. Gastrointestinal Denies nausea, vomiting, diarrhea, GI bleeding, or constipation. Denies change in bowel habits and/or stool color, no heartburn or early satiety. Genitourinary (M) Denies hematuria, dysuria, increased frequency, urgency, hesitancy or incontinence. Musculoskeletal Denies joint pain, swelling or redness. No decreased range of motion. Integumentary Denies chronic rashes, inflammation, ulcerations or skin changes. Neurologic Denies headache, blurred vision, and no areas of focal weakness or numbness. Normal gait. No sensory problems. Psychiatric Denies insomnia, depression, david or mood swings. Vital Signs: Performed on Feb 12, 2020 11:00 Height - 68.00 in Temperature - 97.6 F (LOW) Pulse - 88 /min Respiration - 18 /min BP - 122/67 mm(hg) O2 Sat - 96 % Pain - 0 Fatigue - 0,2 - Ambulatory/capable of all self-care, unable to perform any work activities. Up and about more than 50% of waking hours. (ECOG) Physical Examination: Constitutional Alert, oriented, no acute distress. Skin pink, warm and dry. Head Normocephalic; atraumatic. Eyes Conjunctivae and sclerae are clear and without icterus. Pupils are reactive and equal. Neck Supple without masses or thyromegaly. No jugular venous distension. Hematologic/Lymphatic No petechiae or purpura. No tender or palpable lymph nodes in the cervical or supraclavicular areas. Respiratory Lungs are clear to auscultation without rhonchi or wheezing. Cardiovascular Regular rate and rhythm of heart without murmurs,clicks, gallops or rubs. Abdomen Non-tender, non-distended, no masses or ascites. Good bowel sounds noted in all quads. No guarding or rebound tenderness. No pulsatile masses. Back/Spine Non-tender to palpation. Extremities No visible deformities, no cyanosis, clubbing or edema. Musculoskeletal No tenderness or swelling, normal range of motion without obvious weakness. Integumentary No rashes or lesions. Neurologic No sensory or motor deficits. Psychiatric Alert and pleasant. Coherent speech. Answers questions appropriately. Verbalizes understanding of our discussions today. Laboratory:Test performed on Feb 12, 2020 08:50 Sodium 138 mmol/L Potassium 4.3 mmol/L Chloride 102 mmol/L CO2 23 mmol/L Anion Gap 17.3 BUN 18 mg/dL Creatinine 1.0 mg/dL Cr Clearance (Est) 48.9200 mL/min Glucose 325 mg/dL Osmolality - Calculated 300 mOsm/kg Calcium 9.3 mg/dL Protein, Total 6.5 g/dL Albumin 4.2 g/dL Globulin 2.3 g/dL Bilirubin, Total 0.5 mg/dL ALT (SGPT) 19 U/L AST (SGOT) 15 U/L Alkaline Phosphatase 101 IU/L Test performed on Feb 12, 2020 08:49 WBC 5.4 10 3/uL RBC 4.27 10 6/uL HGB 13.4 g/dL HCT 42.4 % MCV 99.3 fL MCH 31.4 pg MCHC 31.6 g/dL RDW 13.3 % Platelet Count 175 10 3/cmm MPV 10.8 fL Neutrophils 5.23 10 3/uL Lymphocytes 0.2 10 3/uL Monocytes 0.0 10 3/uL Eosinophils 0.0 10 3/uL Basophils 0.0 10 3/uL Neutrophil % 96.1 % Lymphocyte % 2.9 % Monocyte % 0.2 % Eosinophil % 0.0 % Basophils % 0.2 % NRBC % 0 % Impression: Squamous cell carcinoma per station 10 L lymph node biopsy per bronchoscopy done on January 03, 2020 CT PET scan done on December 21, 2019 showed progression of left upper lobe mass when compared with CT PET scan done on October 27, 2018, now mass measures 2.5 x 3.2 cm with SUV of 8.1, new left hilar lymph node measures 2.2 cm with SUV of 6.6 and questionable activity in the left internal mammary lymph node Clinical stage 2B (T2a (>3cm) N1, Mx ) COPD Chronic gout, Hypertension. Dr Gant discussed with Mr Umana his bronchoscopy/pathology report as well as CT PET scan findings. 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 However, due to underlying comorbid condition including COPD, as well as age, it is felt that he not a candidate for surgery. Therefore the second best option would be combined chemoradiation with weekly carboplatin/Taxol concurrent with radiation therapy. Mr Umana began his first week of treatment on 02/03/2020. MRRubiI of the head is pending. Plan: 1. Proceed with week 2 carboplatin/Taxol at same dosing. 2. Steroid compliance confirmed. He is hyperglycemic today with a glucose of 325. He will be given insulin today and will be given 8 units here in the clinic. 3. Given his hyperglycemia- his blood sugar today was 325 and last week after steroids it was 320- and his significant insomnia due to the steroids, it has been recommended that we change him to weekly Abraxane starting with week 3. He had already taken steroids today. 4. Labs from today were reviewed in detail and discussed with Mr. Mrs. Umana and a copy was given to them. WBC 5.4, hemoglobin 13.4, platelets 1 75,000 ANC is 5230. Potassium 4.3 creatinine 1.0 and LFTs are normal. 5. We will plan to see him back in 1 week with CBC CMP the day prior as he is here for radiation anyway. He will be due for week 4 at that time. 6. Mr. Umana was encouraged to contact us in the interim should questions or problems arise. Signed By: Prema Mcdaniel-, ANGEL Gant MD <<Signature on File>>
== END 2020-02-15 23:59 | disposition home or self-care (01) ==
LOC: ONCMED 05:44
PROVIDERS: Internal Medicine Hematology & Oncology; Nurse Practitioner; PCP Family Medicine; Visit Provider Radiology Radiation Oncology
DX: Z51.0 Encounter for antineoplastic radiation therapy (principal); Z51.11 Encounter for antineoplastic chemotherapy; C34.12 Malignant neoplasm of upper lobe, left bronchus or lung; R73.9 Hyperglycemia, unspecified; G47.09 Other insomnia; T38.0X5A Adverse effect of glucocorticoids and synthetic analogues, initial encounter; I10 Essential (primary) hypertension; J44.9 Chronic obstructive pulmonary disease, unspecified; M1A.9XX0 Chronic gout, unspecified, without tophus (tophi); Z79.899 Other long term (current) drug therapy; Z87.891 Personal history of nicotine dependence; Z79.52 Long term (current) use of systemic steroids
CPT/HCPCS: 77300; 77301; 77334; 77336; 77338; 77386; 80053; 85025; 96367; 96372; 96413; 96417; 99214; 99215; J1100; J1200; J1815; J2469; J3490; J7030; J7040; J7050; J9045; J9267

== ENCOUNTER 2020-03-16 05:15 | Outpatient (RCR) | payer OTHER, MEDICARE, SELFPAY ==
[2020-02-18 09:02] LABS: Basophils % 0.6 %; Eosinophils # 0.1 10^3/uL (0.0-0.8); Eosinophils % 3.6 %; Hemoglobin 13.5 g/dL (11.7-16.6); Lymphocytes # 0.5 10^3/uL (0.8-4.8); Lymphocytes % 16.4 %; Mean Corpuscular HGB Conc 32.1 g/dL (30.0-36.0); Mean Corpuscular Hemoglobin 31.5 pg (28.0-34.0); Mean Corpuscular Volume 98.1 fL (80-94); Mean Platelet Volume 10.6 fL (7.4-10.4); Monocytes # 0.2 10^3/uL (0.2-0.9); Monocytes % 5.2 %; Neutrophils # 2.43 10^3/uL (1.8-7.7); Neutrophils % 73.6 %; Nucleated Red Blood Cells % 0 %; Platelet Count 169 10^3/cmm (130-400); Red Blood Count 4.28 10^6/uL (4.1-5.3); Red Cell Distribution Width 13.5 % (12.1-15.1); White Blood Count 3.3 10^3/uL (4.0-10.0)
[2020-02-18 09:18] LABS: Alanine Aminotransferase 21 U/L (0-41); Alkaline Phosphatase 94 IU/L (40-130); Anion Gap 11.3 (5-19); Aspartate Amino Transferase 18 U/L (0-40); Blood Urea Nitrogen 14 mg/dL (8-23); Carbon Dioxide 27 mmol/L (22-29); Chloride 104 mmol/L (98-107); Globulin 2.3 g/dL (1.3-4.6); Glucose 84 mg/dL (65-115); Osmolality Calculated 286 mOsm/kg (285-295); Potassium 4.3 mmol/L (3.5-5.1); Sodium 138 mmol/L (136-145); Total Bilirubin 0.8 mg/dL (0.15-1.2); Total Protein 6.3 g/dL (6.6-8.7)
--- NOTE | 2020-02-18 09:52 | ONCRAD TMN_ITS ---
Radiation Oncology Weekly Treatment Management Patient: Dong Aly MR#: [id number] : 1940 Age: 79 Sex: Male Dictated by: Dr. 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 Treatment plan: 60 Gy in 30 fractions concurrent with weekly carbotaxol followed by durvalumab. Radiotherapy to date: Course: LT Lung [id number], Treatment Site: LT Lung 60Gy, Ref. ID: [id number], Energy: 15X/6X, Dose/Fx (cGy): 200, #Fx: , Dose Correction (cGy): 0, Total Dose (cGy): 2,400, Start Date: 02/03/2020, Elapsed Days: 15 Reason for visit: The patient is being seen today as part of their regularly scheduled weekly on treatment visits to assess for acute toxicities from radiotherapy. Interim History: The patient reports no progressive shortness of breath, and he reports no cough. Current Medications: Breo Ellipta, cARBOplatin, dexamethasone, dexamethasone Sodium Phosphate, diphenhydrAMINE HCl, donepezil HCl, famotidine in NaCl, flonase Allergy Relief, lORazepam, norvasc, pACLitaxel, palonosetron HCl, pantoprazole Sodium, prednisoLONE Acetate, prochlorperazine Maleate, zocor. Allergies: No Known Allergies Current Complaints/Review of Systems: Constitutional - Complains of lack of appetite. Complains of mild fatigue. Complains of change in weight down 2.6 lbs. since last OTV. Denies fever and night sweats. ENMT - Denies dysphagia. Cardiovascular - Denies chest pain. Respiratory - Complains of dyspnea associated with normal activity. Denies cough but clears this throat often and has a constant runny nose., hemoptysis and wheezing. Vital Signs: Performed on 02/18/2020 9:31 AM BMI - 19.615 kg/m2, Height - 68.00 in, Weight - 129.0 lbs, Temperature - 97.4 f, Pulse - 66, Respiration - 20, O2 Sat - 95 % (low), Pain - 0 and BP - 102/ 64 mm(hg)(/low). Physical Exam: Appears stable, no skin erythema or desquamation. Lungs are clear to auscultation bilaterally. Performance Status: 2 - Ambulatory/capable of all self-care, unable to perform any work activities. Up and about more than 50% of waking hours. (ECOG) Lab: None pending in Radiation Oncology. Test performed on 02/12/2020 8:49 AM MCV - 99.3 fl (high), MPV - 10.8 fl (high), Lymphocytes - 0.2 10 3/ul (low), Monocytes - 0.0 10 3/ul (low), Test performed on 02/12/2020 8:50 AM Cr Clearance (Est) - 48.9200 ml/min (low), Glucose - 325 mg/dl (high), Osmolality - Calculated - 300 mosm/kg (high) and Protein, Total - 6.5 g/dl (low). Imaging: Radiation therapy imaging related to accurate target localization (i.e. KV, MV and CBCT) was reviewed. Appropriate changes, if any, were made to ensure treatment accuracy. Plan: The patient is tolerating therapy reasonably well. Radiotherapy will continue as planned. CPT: 94974 Signed by: Dr. Colby Saldaña 02/18/2020 9:51:25 AM
[2020-02-19] MEDS: sodium chloride 0.9% 250 ML 75 ML IV (10:25)
--- NOTE | 2020-02-19 10:59 | ONC FU_ITS ---
Dr. Gant follow up note Patient: Jermain Umana Unit #: [id number]: 1940 Dicatated By: Harlan Gant M.D.Date of Visit:Feb 19, 2020 Onc Med Follow-up/Prog Note History of Present Illness: Mr. Umana is an 79-year-old gentleman with a history of left upper lobe lung nodule. It was first noticed in October 2018 during work-up for left carotid artery endarterectomy. He recently started having right upper chest pain for which he underwent a CT scan of chest on December 03, 2019. The CT showed left hilar mass size 3 x 3 x 2 cm. He was referred to pulmonology and underwent CT PET scan on December 21, 2019. The PET/CT reported a 2.5 x 3.2 cm left upper lobe lung mass with SUV of 8.1 representing progression since a previous PET scan (from 10/27/2018-we do not have this report available) and also there was a new adjacent infiltrate most likely obstructive atelectasis. Suspicious upper left hilar node which measures roughly 2.2 centimeter with SUV of 6.6 and a new, questionable activity is present in the left internal mammary lymph node. Mr Umana underwent bronchoscopy on January 03, 2020 which showed left main stem bronchus appears to be narrowed due to extrinsic compression but no endobronchial lesion. A fine-needle aspiration was performed from station 7 and 10 left. 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 Mr Umana has history of smoking about 2 packs a day for 25 years started at age 14 quit when he was 38 years old. Now he has underlying COPD. Patient said he has lost about 30 pounds in over 1 month because of poor appetite. Clinically, Mr Dong has stage IIb disease with biopsy-proven left hilar involvement, due to underlying comorbid condition including COPD, as well as age, it is felt that he is not a candidate for surgery. Therefore the second best option would be combined chemoradiation with weekly carboplatin/Taxol concurrent with radiation therapy. He began his first week of chemotherapy on 02/03/2020.Due to steroid induced insomnia, weekly Taxol was switched with weekly Abraxane on February 19, 2020 along with weekly carboplatin concurrent with radiation therapy Came for follow-up, denies any specific complaints, no fever chills, no nausea or vomiting, no diarrhea or constipation, no hemoptysis or hematemesis, no indigestion or heartburn, tolerating combined chemoradiation with weekly carboplatin and Taxol concurrent with radiation therapy but with severe insomnia thus Taxol being switched with Abraxane along with weekly carboplatin today. Medications: Breo Ellipta 1 (100-25 mcg/inh) Aerosol Powder, Breath Activated Inhalation daily, Donepezil HCl 1 Tablet (of 5 mg) Oral at bedtime, Flonase Allergy Relief 1 (50 mcg/act) Suspension Nasal daily, Norvasc 1 Tablet (of 5 mg) Oral daily, Pantoprazole Sodium 1 Tablet (of 40 mg) Tablet, enteric coated Oral daily, prednisoLONE Acetate 1 Drop(s) (of 1 %) Suspension Ophthalmic b.i.d., Zocor 1 Tablet (of 40 mg) Oral daily Allergies: No Known Allergies. Review of Systems: Constitutional - Appetite is poor and weight is decreasing. No fever, night sweats, or hot flashes. Energy level is poor, ENMT - No sinus congestion/drainage. No mouth sores. No sore throat or difficulty swallowing, Hematologic/Lymphatic - Positive for easy bruising, Respiratory - Positive for shortness of breath and cough. No pleuritic pain or hemoptysis, Cardiovascular - No angina pain. No palpitations, Gastrointestinal - No nausea or vomiting. No heartburn or acid reflux. No diarrhea or constipation. No blood in the stool or black stools, Genitourinary (M) - No dysuria or hematuria. Positive for urinary frequency. No urgency or incontinence, Musculoskeletal - No joint or bone pain, Neurologic - No headache or dizziness. No numbness or tingling. No other focal neurologic symptoms, Psychiatric - No anxiety or depression. Positive for insomnia. Vital Signs: Performed on Feb 19, 2020 09:04 Height - 68.00 in Weight - 131.6 lbs (HIGH) BSA - 1.71 sq.m BMI - 20.01 Temperature - 98.3 F (LOW) Pulse - 63 /min Respiration - 18 /min BP - 109/61 mm(hg) O2 Sat - 95 % (LOW) Pain - 0 Performance Status: 0 - Fully active, able to carry on all predisease activities without restrictions. (ECOG) Physical Examination: ENMT - No mouth sores, no thrush, no jaundice, Respiratory - Lungs are clear to auscultation, Cardiovascular - Regular rate and rhythm of heart, Abdomen - Soft, bowel sounds present, Extremities - No visible edema. Lab/Imaging: Test performed on Feb 18, 2020 08:45 Sodium 138 mmol/L Potassium 4.3 mmol/L Chloride 104 mmol/L CO2 27 mmol/L Anion Gap 11.3 BUN 14 mg/dL Creatinine 0.8 mg/dL Cr Clearance (Est) 61.1400 mL/min Glucose 84 mg/dL Osmolality - Calculated 286 mOsm/kg Calcium 9.0 mg/dL Protein, Total 6.3 g/dL Albumin 4.0 g/dL Globulin 2.3 g/dL Bilirubin, Total 0.8 mg/dL ALT (SGPT) 21 U/L AST (SGOT) 18 U/L Alkaline Phosphatase 94 IU/L WBC 3.3 10 3/uL RBC 4.28 10 6/uL HGB 13.5 g/dL HCT 42.0 % MCV 98.1 fL MCH 31.5 pg MCHC 32.1 g/dL RDW 13.5 % Platelet Count 169 10 3/cmm MPV 10.6 fL Neutrophils 2.43 10 3/uL Lymphocytes 0.5 10 3/uL Monocytes 0.2 10 3/uL Eosinophils 0.1 10 3/uL Basophils 0.0 10 3/uL Neutrophil % 73.6 % Lymphocyte % 16.4 % Monocyte % 5.2 % Eosinophil % 3.6 % Basophils % 0.6 % NRBC % 0 % Impression: Squamous cell carcinoma per station 10 L lymph node biopsy per bronchoscopy done on January 03, 2020 CT PET scan done on December 21, 2019 showed progression of left upper lobe mass when compared with CT PET scan done on October 27, 2018, now mass measures 2.5 x 3.2 cm with SUV of 8.1, new left hilar lymph node measures 2.2 cm with SUV of 6.6 and questionable activity in the left internal mammary lymph node Clinical stage 2B (T2a (>3cm) N1, Mx ) COPD Chronic gout, Hypertension. Dr Gant discussed with Mr Umana his bronchoscopy/pathology report as well as CT PET scan findings. 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 However, due to underlying comorbid condition including COPD, as well as age, it is felt that he not a candidate for surgery. Therefore the second best option would be combined chemoradiation with weekly carboplatin/Taxol concurrent with radiation therapy. Mr Umana began his first week of treatment on 02/03/2020. MR?I of the head is pending. Plan: Discussed with patient regarding his labs white blood count 3.3 hemoglobin 13.5 hematocrit 42 platelets 169,000 ANC 2430 CMP within normal limits Clinically, patient is done well, tolerating combined chemoradiation with weekly carboplatin/Taxol well but with expected side effect, patient was having severe insomnia due to steroids required has a premedication with the Taxol so today we will switch his Taxol to weekly Abraxane along with weekly carboplatin concurrent with radiation therapy. With this regimen patient will require premedication with steroids. His follow-up labs also shows progressive leukopenia, due to chemotherapy, we will consider Neupogen 480 mcg subcu daily for 3 days between weekly chemotherapy to prevent chemotherapy-induced leukopenia/neutropenia as well as to maintain chemotherapy schedule. Patient return to clinic in 1 week with CBC CMP Signed By: Harlan Gant M.D. <<Signature on File>>
[2020-02-25 09:23] LABS: Basophils % 1.8 %; Eosinophils % 1.8 %; Hematocrit 38.6 % (42.0-52.0); Hemoglobin 12.4 g/dL (11.7-16.6); Lymphocytes # 0.3 10^3/uL (0.8-4.8); Lymphocytes % 15.4 %; Mean Corpuscular HGB Conc 32.1 g/dL (30.0-36.0); Mean Corpuscular Volume 99.5 fL (80-94); Mean Platelet Volume 10.9 fL (7.4-10.4); Monocytes # 0.4 10^3/uL (0.2-0.9); Neutrophils # 1.32 10^3/uL (1.8-7.7); Neutrophils % 59.7 %; Nucleated Red Blood Cells % 0 %; Platelet Count 155 10^3/cmm (130-400); Red Blood Count 3.88 10^6/uL (4.1-5.3); Red Cell Distribution Width 13.8 % (12.1-15.1); White Blood Count 2.2 10^3/uL (4.0-10.0)
[2020-02-25 09:36] LABS: Alanine Aminotransferase 19 U/L (0-41); Albumin Level 3.8 g/dL (3.5-5.2); Alkaline Phosphatase 100 IU/L (40-130); Anion Gap 12.1 (5-19); Aspartate Amino Transferase 16 U/L (0-40); Blood Urea Nitrogen 13 mg/dL (8-23); Calcium 8.8 mg/dL (8.5-10.5); Carbon Dioxide 26 mmol/L (22-29); Chloride 107 mmol/L (98-107); Globulin 2.1 g/dL (1.3-4.6); Glucose 119 mg/dL (65-115); Osmolality Calculated 293 mOsm/kg (285-295); Potassium 4.1 mmol/L (3.5-5.1); Sodium 141 mmol/L (136-145); Total Bilirubin 0.4 mg/dL (0.15-1.2); Total Protein 5.9 g/dL (6.6-8.7)
--- NOTE | 2020-02-27 09:34 | ONCRAD TMN_ITS ---
Radiation Oncology Weekly Treatment Management Patient: Dong Moody MR#: [id number] : 1940> Attending Physician: Iglesia Parra M.D. Date of Service: 02/27/2020 Diagnosis: C34.12 - Malignant neoplasm of upper lobe, left bronchus or lung, Diagnosed 10/18/2019 (Active) Treatment Site: LT Lung Fraction #: Total Dose: 38 Gy Start Date: 02/03/2020 End Date: 02/27/2020 Elapsed Days: 24 Reason for visit: The patient is being seen today as part of their regularly scheduled weekly on treatment visits to assess for acute toxicities from radiotherapy. Review of Systems: The patient denied any respiratory complaints. Vital Signs: Performed on 02/27/2020 9:19 AM BMI - 20.071 kg/m2, Height - 68.00 in, Weight - 132.0 lbs, Temperature - 98.0 f, Pulse - 69, Respiration - 20, O2 Sat - 94 % (low), Pain - 0 and BP - 112/ 64 mm(hg)(/low). Physical Exam: Auscultation of the posterior lung mckeon revealed bilateral basilar rales. Imaging: Radiation therapy imaging related to accurate target localization (i.e. KV, MV and CBCT) was reviewed. Appropriate changes, if any, were made to ensure treatment accuracy. Plan: Continue thoracic radiotherapy as prescribed. Signed by: Dr. Iglesia Parra 02/27/2020 9:33:32 AM
--- NOTE | 2020-03-02 09:29 | N.ONRAD NP_ITS ---
Radiation Oncology Weekly Treatment Management Patient: Jermain Umana MR#: [id number] : 1940 Attending Physician: Dr. Iglesia Parra Date of Service: 03/02/2020 Referring Physician(s) : Diagnosis: Lung cancer Treatment Site: Thorax Dose: 42 Gy of a prescribed 60 Gy. Review of Systems: The patient did not report any respiratory complaints. Vital Signs: Weight - 132 lbs. Temperature -97.2 F, BP -116/72 mm (hg). Pulse ???92 bpm, Respirations - 20, oxygen saturation was 95% on room air Physical Exam: Decreased breath sounds noted posteriorly with bronchial breath sounds auscultated. Imaging: Radiation therapy imaging related to accurate target localization (i.e. KV, MV and CBCT) was reviewed. Appropriate changes, if any, were made to ensure treatment accuracy. Plan: Continue thoracic radiotherapy as planned. Signed by: Dr. Iglesia Parra 03/02/2020 9:27:47 AM
[2020-03-03 09:04] LABS: Basophils # 0.1 10^3/uL (0.0-0.1); Basophils % 1.5 %; Eosinophils % 0.2 %; Hematocrit 41.1 % (42.0-52.0); Hemoglobin 12.9 g/dL (11.7-16.6); Lymphocytes # 0.4 10^3/uL (0.8-4.8); Lymphocytes % 6.5 %; Mean Corpuscular HGB Conc 31.4 g/dL (30.0-36.0); Mean Corpuscular Hemoglobin 31.5 pg (28.0-34.0); Mean Corpuscular Volume 100.2 fL (80-94); Mean Platelet Volume 10.8 fL (7.4-10.4); Monocytes # 0.9 10^3/uL (0.2-0.9); Monocytes % 13.8 %; Neutrophils # 4.67 10^3/uL (1.8-7.7); Nucleated Red Blood Cells % 0 %; Platelet Count 113 10^3/cmm (130-400); Red Cell Distribution Width 15.1 % (12.1-15.1); White Blood Count 6.1 10^3/uL (4.0-10.0)
[2020-03-03 09:32] LABS: Alanine Aminotransferase 12 U/L (0-41); Albumin Level 4.1 g/dL (3.5-5.2); Alkaline Phosphatase 121 IU/L (40-130); Anion Gap 14.2 (5-19); Aspartate Amino Transferase 13 U/L (0-40); Blood Urea Nitrogen 10 mg/dL (8-23); Calcium 9.2 mg/dL (8.5-10.5); Carbon Dioxide 27 mmol/L (22-29); Chloride 104 mmol/L (98-107); Globulin 2.1 g/dL (1.3-4.6); Glucose 147 mg/dL (65-115); Osmolality Calculated 294 mOsm/kg (285-295); Potassium 4.2 mmol/L (3.5-5.1); Sodium 141 mmol/L (136-145); Total Bilirubin 0.3 mg/dL (0.15-1.2); Total Protein 6.2 g/dL (6.6-8.7)
[2020-03-03 09:57] LABS: Slide Review Slide Review Perform
--- NOTE | 2020-03-09 09:24 | ONCRAD TMN_ITS ---
Radiation Oncology Weekly Treatment Management Patient: Dong Moody MR#: [id number] : 1940 Attending Physician: Dr. Iglesia Parra Date of Service: 03/09/2020 Diagnosis: C34.12 - Malignant neoplasm of upper lobe, left bronchus or lung, Diagnosed 10/18/2019 (Active) Treatment Site: Thorax Fraction number: Total Dose (cGy): 5,200 Review of Systems: He did not report any significant pulmonary symptoms. Vital Signs: Performed on 03/09/2020 9:10 AM BMI - 20.071 kg/m2, Height - 68.00 in, Weight - 132.0 lbs, Temperature - 97.3 f, Pulse - 88, Respiration - 20, O2 Sat - 94 % (low), Pain - 0 and BP - 111/ 67 mm(hg). Physical Exam: There was no erythema in the treatment field. Auscultation of the posterior lung mckeon identified left sided expiratory wheezes. Imaging: Radiation therapy imaging related to accurate target localization (i.e. KV, MV and CBCT) was reviewed. Appropriate changes, if any, were made to ensure treatment accuracy. Plan: Continue thoracic radiotherapy as planned. Signed by: Dr. Iglesia Parra 03/09/2020 9:23:26 AM
--- NOTE | 2020-03-09 21:44 | ONC FU_ITS ---
[facility] Patient Note Patient: Jermain Umana Unit #: [id number]: 1940 Dictated By: Prema McdanielDate of Visit: Mar 04, 2020 Onc MED Follow-Up/Prog Note Chief Complaint: Non-small cell lung cancer History of Present Illness: Mr. Umana is an 79-year-old gentleman with a history of left upper lobe lung nodule. It was first noticed in October 2018 during work-up for left carotid artery endarterectomy. He recently started having right upper chest pain for which he underwent a CT scan of chest on December 03, 2019. The CT showed left hilar mass size 3 x 3 x 2 cm. He was referred to pulmonology and underwent CT PET scan on December 21, 2019. The PET/CT reported a 2.5 x 3.2 cm left upper lobe lung mass with SUV of 8.1 representing progression since a previous PET scan (from 10/27/2018-we do not have this report available) and also there was a new adjacent infiltrate most likely obstructive atelectasis. Suspicious upper left hilar node which measures roughly 2.2 centimeter with SUV of 6.6 and a new, questionable activity is present in the left internal mammary lymph node. Mr Umana underwent bronchoscopy on January 03, 2020 which showed left main stem bronchus appears to be narrowed due to extrinsic compression but no endobronchial lesion. A fine-needle aspiration was performed from station 7 and 10 left. 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 Mr Umana has history of smoking about 2 packs a day for 25 years started at age 14 quit when he was 38 years old. Now he has underlying COPD. Patient said he has lost about 30 pounds in over 1 month because of poor appetite. 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 Therefore the second best option would be combined chemoradiation with weekly carboplatin/Taxol concurrent with radiation therapy. He began his first week of chemotherapy on 02/03/2020. Due to steroid induced insomnia, weekly Taxol was switched to weekly Abraxane on February 19, 2020 along with weekly carboplatin concurrent with radiation therapy. He has tolerated this well. Growth factor support with Neupogen for 3 doses was added after cycle 3. His day 7 ANC was 1300. His last dose of Neupogen was on February 28, 2020. He is here today for follow-up. He is due for week 4 as he did miss last week due to the neutropenia. His blood counts have recovered well and he states he is feeling good. He denies any shortness of breath or cough. He denies any painful inspiration. He has had no episodes of mental status changes confusion or headache/vision changes. He denies any nausea or vomiting. He states that his energy is good for him. He states his appetite is good. He denies any pain. He states overall he feels really good. He denies any nausea or vomiting. His ECOG is 1. Past Medical History: Alzheimer's disease Carotid artery stenosis Chronic obstructive pulmonary disease Gout Hypertension Stroke Past Surgical History: Bronchoscopy Carotid artery Carpal tunnel x2 Cataracts - 12/19/19 left eye and 01/16/20 right eye Cholecystectomy Hemrroid removal Allergies: No Known Allergies. Medications: Breo Ellipta 1 (100-25 mcg/inh) Aerosol Powder, Breath Activated Inhalation daily Donepezil HCl 1 Tablet (of 5 mg) Oral at bedtime Flonase Allergy Relief 1 (50 mcg/act) Suspension Nasal daily Norvasc 1 Tablet (of 5 mg) Oral daily Pantoprazole Sodium 1 Tablet (of 40 mg) Tablet, enteric coated Oral daily prednisoLONE Acetate 1 Drop(s) (of 1 %) Suspension Ophthalmic b.i.d. Zocor 1 Tablet (of 40 mg) Oral daily Family History: Mr. Umana's mother at age 57: lung cancer, and colon cancer. Mr. Umana's father at age 90. Mr. Umana has 3 brothers: 3 . Mr. Umana's first brother's gun shot. Another brother's car accident. Another brother's drug overdose. He has 1 sister who is : lung cancer. Social History: Mr. Umana is . Mr. Umana quit smoking 35 years ago but had smoked 2.0 packs/day for 36 years. He has no history of drinking. Review Of Symptoms: Constitutional Denies fevers, chills, night sweats, excessive fatigue or weight loss. He states he feels really good overall. Allergic/Immunologic No reactions. Eyes Denies significant visual changes. No diplopia. No amaurosis. ENMT Denies changes in hearing, sore throat, mouth sores, difficulty or changes in swallowing ability, and/or sinus drainage. Hematologic/Lymphatic Denies easy bruising or bleeding. The patient denies any tender or palpable lymph nodes. Respiratory Denies dyspnea on exertion, chest pain, cough or hemoptysis. Denies orthopnea. Cardiovascular Denies anginal chest pain, palpitations or orthopnea. Gastrointestinal Denies nausea, vomiting, diarrhea, GI bleeding, or constipation. Denies change in bowel habits and/or stool color, no heartburn or early satiety. Genitourinary (M) Denies hematuria, dysuria, increased frequency, urgency, hesitancy or incontinence. Musculoskeletal Denies joint pain, swelling or redness. No decreased range of motion. Integumentary Denies chronic rashes, inflammation, ulcerations or skin changes. Neurologic Denies headache, blurred vision, and no areas of focal weakness or numbness. Normal gait. No sensory problems. Psychiatric Denies insomnia, depression, david or mood swings. Vital Signs: Performed on Mar 04, 2020 08:36 Height - 68.00 in Weight - 134.4 lbs (HIGH) BSA - 1.73 sq.m BMI - 20.44 Temperature - 97.4 F (LOW) Pulse - 92 /min Respiration - 20 /min BP - 131/81 mm(hg) O2 Sat - 92 % (LOW) Pain - 0,1 - No physically strenuous activity, but ambulatory and able to carry out light or sedentary work (e.g. office work, light house work). (ECOG) Physical Examination: Constitutional Alert, oriented, no acute distress. Skin pink, warm and dry. Head Normocephalic; atraumatic. Eyes Conjunctivae and sclerae are clear and without icterus. Pupils are reactive and equal. Neck Supple without masses or thyromegaly. No jugular venous distension. Hematologic/Lymphatic No petechiae or purpura. No tender or palpable lymph nodes in the cervical or supraclavicular areas. Respiratory Lungs are clear to auscultation without rhonchi or wheezing. Cardiovascular Regular rate and rhythm of heart without murmurs,clicks, gallops or rubs. Abdomen Non-tender, non-distended, no masses or ascites. Good bowel sounds noted in all quads. No guarding or rebound tenderness. No pulsatile masses. Back/Spine Non-tender to palpation. Extremities No visible deformities, no cyanosis, clubbing or edema. Musculoskeletal No tenderness or swelling, normal range of motion without obvious weakness. Integumentary No rashes or lesions. Neurologic No sensory or motor deficits. Psychiatric Alert and pleasant. Coherent speech. Answers questions appropriately. Verbalizes understanding of our discussions today. Laboratory:Test performed on Mar 03, 2020 08:59 Creatinine 0.8 mg/dL Cr Clearance (Est) 61.14 mL/min Test performed on Mar 03, 2020 08:45 Sodium 141 mmol/L Potassium 4.2 mmol/L Chloride 104 mmol/L CO2 27 mmol/L Anion Gap 14.2 BUN 10 mg/dL Glucose 147 mg/dL Osmolality - Calculated 294 mOsm/kg Calcium 9.2 mg/dL Protein, Total 6.2 g/dL Albumin 4.1 g/dL Globulin 2.1 g/dL Bilirubin, Total 0.3 mg/dL ALT (SGPT) 12 U/L AST (SGOT) 13 U/L Alkaline Phosphatase 121 IU/L WBC 6.1 10 3/uL RBC 4.10 10 6/uL HGB 12.9 g/dL HCT 41.1 % MCV 100.2 fL MCH 31.5 pg MCHC 31.4 g/dL RDW 15.1 % Platelet Count 113 10 3/cmm MPV 10.8 fL Neutrophils 4.67 10 3/uL Lymphocytes 0.4 10 3/uL Monocytes 0.9 10 3/uL Eosinophils 0.0 10 3/uL Basophils 0.1 10 3/uL Neutrophil % 76.0 % Lymphocyte % 6.5 % Monocyte % 13.8 % Eosinophil % 0.2 % Basophils % 1.5 % NRBC % 0 % CBC Slide Review Slide Review Perform SLIDE REVIEW AGREES WITH AUTOMATED RESULTS ST Impression: Squamous cell carcinoma per station 10 L lymph node biopsy per bronchoscopy done on January 03, 2020 CT PET scan done on December 21, 2019 showed progression of left upper lobe mass when compared with CT PET scan done on October 27, 2018, now mass measures 2.5 x 3.2 cm with SUV of 8.1, new left hilar lymph node measures 2.2 cm with SUV of 6.6 and questionable activity in the left internal mammary lymph node Clinical stage 2B (T2a (>3cm) N1, Mx ) COPD Chronic gout, Hypertension. Dr Gant discussed with Mr Umana his bronchoscopy/pathology report as well as CT PET scan findings. 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 However, due to underlying comorbid condition including COPD, as well as age, it is felt that he not a candidate for surgery. Therefore the second best option would be combined chemoradiation with weekly carboplatin/Taxol concurrent with radiation therapy. Mr Umana began his first week of treatment on 02/03/2020. MR?I of the head is pending. Clinically, patient is done well, tolerating combined chemoradiation with weekly carboplatin/Taxol well but with expected side effect, patient was having severe insomnia due to steroids required has a premedication with the Taxol so his treatment was changed from Taxol to weekly Abraxane along with weekly carboplatin concurrent with radiation therapy. With this regimen patient will not require premedication with steroids. After week 3 he had chemotherapy induced neutropenia with an ANC of 1320 on day 1 of week 4. He was given 3 doses of Neupogen and his blood counts have recovered well. Plan: 1. We will proceed with week 4 or his fourth chemotherapy treatment although his platelet count is 113,000. He has missed 1 week already and he is concurrent chemoradiation and has stage IIb disease. 2. Labs from March 03, 2020 were reviewed in detail and discussed with Mr. Umana and a copy was given to him. Due to BC 6.1, hemoglobin 12.9, platelets 113,000 ANC is 4670 potassium 4.2 random glucose 147 nonfasting, creatinine 0.8 LFTs are normal. 3. He will continue his current plan of care and we will plan to continue Neupogen as needed in between treatments. 4. We will plan to see him back in 1 week with CBC CMP and follow-up for consideration of week 5 chemotherapy with carboplatin/Abraxane. 5. Mr. Umana was encouraged to contact us in the interim should questions or problems arise. Signed By: Prema Mcdaniel-, [facility] Harlan Gant MD <<Signature on File>>
[2020-03-10 08:53] LABS: Basophils # 0.1 10^3/uL (0.0-0.1); Eosinophils % 0.3 %; Hematocrit 41.4 % (42.0-52.0); Hemoglobin 13.2 g/dL (11.7-16.6); Lymphocytes # 0.5 10^3/uL (0.8-4.8); Lymphocytes % 7.7 %; Mean Corpuscular HGB Conc 31.9 g/dL (30.0-36.0); Mean Corpuscular Hemoglobin 32.1 pg (28.0-34.0); Mean Corpuscular Volume 100.7 fL (80-94); Mean Platelet Volume 10.6 fL (7.4-10.4); Monocytes # 0.6 10^3/uL (0.2-0.9); Monocytes % 10.6 %; Neutrophils # 4.77 10^3/uL (1.8-7.7); Neutrophils % 79.9 %; Nucleated Red Blood Cells % 0 %; Platelet Count 146 10^3/cmm (130-400); Red Blood Count 4.11 10^6/uL (4.1-5.3); Red Cell Distribution Width 15.3 % (12.1-15.1)
[2020-03-10 09:09] LABS: Alanine Aminotransferase 14 U/L (0-41); Alkaline Phosphatase 142 IU/L (40-130); Anion Gap 12.1 (5-19); Aspartate Amino Transferase 13 U/L (0-40); Blood Urea Nitrogen 13 mg/dL (8-23); Carbon Dioxide 27 mmol/L (22-29); Chloride 106 mmol/L (98-107); Globulin 2.2 g/dL (1.3-4.6); Glucose 88 mg/dL (65-115); Osmolality Calculated 292 mOsm/kg (285-295); Potassium 4.1 mmol/L (3.5-5.1); Sodium 141 mmol/L (136-145); Total Bilirubin 0.7 mg/dL (0.15-1.2); Total Protein 6.2 g/dL (6.6-8.7)
--- NOTE | 2020-03-11 09:10 | ONC FU_ITS ---
[facility] Patient Note Patient: Jermain Umana Unit #: [id number]: 1940 Dictated By: Prema McdanielDate of Visit: Mar 11, 2020 Onc MED Follow-Up/Prog Note Chief Complaint: Non-small cell lung cancer History of Present Illness: Mr. Umana is an 79-year-old gentleman with a history of left upper lobe lung nodule. It was first noticed in October 2018 during work-up for left carotid artery endarterectomy. He recently started having right upper chest pain for which he underwent a CT scan of chest on December 03, 2019. The CT showed left hilar mass size 3 x 3 x 2 cm. He was referred to pulmonology and underwent CT PET scan on December 21, 2019. The PET/CT reported a 2.5 x 3.2 cm left upper lobe lung mass with SUV of 8.1 representing progression since a previous PET scan (from 10/27/2018-we do not have this report available) and also there was a new adjacent infiltrate most likely obstructive atelectasis. Suspicious upper left hilar node which measures roughly 2.2 centimeter with SUV of 6.6 and a new, questionable activity is present in the left internal mammary lymph node. Mr Umana underwent bronchoscopy on January 03, 2020 which showed left main stem bronchus appears to be narrowed due to extrinsic compression but no endobronchial lesion. A fine-needle aspiration was performed from station 7 and 10 left. 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 Mr Umana has history of smoking about 2 packs a day for 25 years started at age 14 quit when he was 38 years old. Now he has underlying COPD. Mr Umana reported that he has lost about 30 pounds in over 1 month because of poor appetite. 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 Therefore the second best option would be combined chemoradiation with weekly carboplatin/Taxol concurrent with radiation therapy. He began his first week of chemotherapy on 02/03/2020. Due to steroid induced insomnia, weekly Taxol was switched to weekly Abraxane on February 19, 2020 along with weekly carboplatin concurrent with radiation therapy. He has tolerated this well. Growth factor support with Neupogen for 3 doses was added after cycle 3. His day 7 ANC was 1300. His last dose of Neupogen for cycle 3 was on February 28, 2020. Mr Umana is here today for follow-up. He is due for week 5 as he did miss one week due to the neutropenia. He reports that overall he is doing well. He denies any fever or chills. States his appetite is good his energy is good. He states he is not having any trouble breathing and denies any cough. However Mrs. Umana states that occasionally she is looking for the cat but there is no cat is his wheezing . She states it comes and goes. She states is no worse but she did happen to her at last Monday and thought it was really bad then . He denies any shortness of breath more than what has been his normal. He states he thinks he may be breathing a little bit better. He denies any nausea or vomiting. He denies any neuropathy. He has had no bowel or bladder concerns that he will report. He remains very active. His ECOG is 1. Past Medical History: Alzheimer's disease Carotid artery stenosis Chronic obstructive pulmonary disease Gout Hypertension Stroke Past Surgical History: Bronchoscopy Carotid artery Carpal tunnel x2 Cataracts - 12/19/19 left eye and 01/16/20 right eye Cholecystectomy Hemrroid removal Allergies: No Known Allergies. Medications: Albuterol Sulfate 1 Puff(s) (of 108 (90 base) mcg/act) Aerosol Powder, Breath Activated Inhalation b.i.d. PRN Breo Ellipta 1 (100-25 mcg/inh) Aerosol Powder, Breath Activated Inhalation daily Donepezil HCl 1 Tablet (of 5 mg) Oral at bedtime Flonase Allergy Relief 1 (50 mcg/act) Suspension Nasal daily Norvasc 1 Tablet (of 5 mg) Oral daily Pantoprazole Sodium 1 Tablet (of 40 mg) Tablet, enteric coated Oral daily prednisoLONE Acetate 1 Drop(s) (of 1 %) Suspension Ophthalmic b.i.d. Zocor 1 Tablet (of 40 mg) Oral daily Family History: Mr. Umana's mother at age 57: lung cancer, and colon cancer. Mr. Umana's father at age 90. Mr. Umana has 3 brothers: 3 . Mr. Umana's first brother's gun shot. Another brother's car accident. Another brother's drug overdose. He has 1 sister who is : lung cancer. Social History: Mr. Umana is . Mr. Umana quit smoking 35 years ago but had smoked 2.0 packs/day for 36 years. He has no history of drinking. Review Of Symptoms: Constitutional Denies fevers, chills, night sweats, excessive fatigue or weight loss. He states he feels really good overall. Allergic/Immunologic No reactions. Eyes Denies significant visual changes. No diplopia. No amaurosis. ENMT Denies changes in hearing, sore throat, mouth sores, difficulty or changes in swallowing ability, and/or sinus drainage. Endocrine No diabetes, thyroid disease or hormone replacement. Denies hot flashes or night sweats. Hematologic/Lymphatic Denies easy bruising or bleeding. The patient denies any tender or palpable lymph nodes. Respiratory Denies dyspnea on exertion, chest pain, cough or hemoptysis. Denies orthopnea. Cardiovascular Denies anginal chest pain, palpitations or orthopnea. Gastrointestinal Denies nausea, vomiting, diarrhea, GI bleeding, or constipation. Denies change in bowel habits and/or stool color, no heartburn or early satiety. Genitourinary (M) Denies hematuria, dysuria, increased frequency, urgency, hesitancy or incontinence. Musculoskeletal Denies joint pain, swelling or redness. No decreased range of motion. Integumentary Denies chronic rashes, inflammation, ulcerations or skin changes. Neurologic Denies headache, blurred vision, and no areas of focal weakness or numbness. Normal gait. No sensory problems. Psychiatric Denies insomnia, depression, david or mood swings. Vital Signs: Performed on Mar 11, 2020 08:36 Height - 68.00 in Weight - 133.8 lbs (HIGH) BSA - 1.72 sq.m BMI - 20.34 Temperature - 97.5 F (LOW) Pulse - 90 /min Respiration - 24 /min BP - 109/76 mm(hg) O2 Sat - 93 % (LOW) Pain - 0,1 - No physically strenuous activity, but ambulatory and able to carry out light or sedentary work (e.g. office work, light house work). (ECOG) Physical Examination: Constitutional Alert, oriented, no acute distress. Skin pink, warm and dry. Head Normocephalic; atraumatic. Eyes Conjunctivae and sclerae are clear and without icterus. Pupils are reactive and equal. Neck Supple without masses or thyromegaly. No jugular venous distension. Hematologic/Lymphatic No petechiae or purpura. No tender or palpable lymph nodes in the cervical or supraclavicular areas. Respiratory Lungs are clear to auscultation without rhonchi or wheezing. Cardiovascular Regular rate and rhythm of heart without murmurs,clicks, gallops or rubs. Abdomen Non-tender, non-distended, no masses or ascites. Good bowel sounds noted in all quads. No guarding or rebound tenderness. No pulsatile masses. Back/Spine Non-tender to palpation. Extremities No visible deformities, no cyanosis, clubbing or edema. Musculoskeletal No tenderness or swelling, normal range of motion without obvious weakness. Integumentary No rashes or lesions. Neurologic No sensory or motor deficits. Psychiatric Alert and pleasant. Coherent speech. Answers questions appropriately. Verbalizes understanding of our discussions today. Laboratory:Test performed on Mar 10, 2020 08:55 Creatinine 0.9 mg/dL Cr Clearance (Est) 54.35 mL/min Test performed on Mar 03, 2020 08:45 Sodium 141 mmol/L Potassium 4.2 mmol/L Chloride 104 mmol/L CO2 27 mmol/L Anion Gap 14.2 BUN 10 mg/dL Glucose 147 mg/dL Osmolality - Calculated 294 mOsm/kg Calcium 9.2 mg/dL Protein, Total 6.2 g/dL Albumin 4.1 g/dL Globulin 2.1 g/dL Bilirubin, Total 0.3 mg/dL ALT (SGPT) 12 U/L AST (SGOT) 13 U/L Alkaline Phosphatase 121 IU/L WBC 6.1 10 3/uL RBC 4.10 10 6/uL HGB 12.9 g/dL HCT 41.1 % MCV 100.2 fL MCH 31.5 pg MCHC 31.4 g/dL RDW 15.1 % Platelet Count 113 10 3/cmm MPV 10.8 fL Neutrophils 4.67 10 3/uL Lymphocytes 0.4 10 3/uL Monocytes 0.9 10 3/uL Eosinophils 0.0 10 3/uL Basophils 0.1 10 3/uL Neutrophil % 76.0 % Lymphocyte % 6.5 % Monocyte % 13.8 % Eosinophil % 0.2 % Basophils % 1.5 % NRBC % 0 % CBC Slide Review Slide Review Perform SLIDE REVIEW AGREES WITH AUTOMATED RESULTS ST Impression: Squamous cell carcinoma per station 10 L lymph node biopsy per bronchoscopy done on January 03, 2020 CT PET scan done on December 21, 2019 showed progression of left upper lobe mass when compared with CT PET scan done on October 27, 2018, now mass measures 2.5 x 3.2 cm with SUV of 8.1, new left hilar lymph node measures 2.2 cm with SUV of 6.6 and questionable activity in the left internal mammary lymph node Clinical stage 2B (T2a (>3cm) N1, Mx ) COPD Chronic gout, Hypertension. Dr Gant discussed with Mr Umana his bronchoscopy/pathology report as well as CT PET scan findings. 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 However, due to underlying comorbid condition including COPD, as well as age, it is felt that he not a candidate for surgery. Therefore the second best option would be combined chemoradiation with weekly carboplatin/Taxol concurrent with radiation therapy. Mr Umana began his first week of treatment on 02/03/2020. MR?I of the head is pending. Clinically, patient is done well, tolerating combined chemoradiation with weekly carboplatin/Taxol well but with expected side effect, patient was having severe insomnia due to steroids required has a premedication with the Taxol so his treatment was changed from Taxol to weekly Abraxane along with weekly carboplatin concurrent with radiation therapy. With this regimen patient will not require premedication with steroids. After week 3 he had chemotherapy induced neutropenia with an ANC of 1320 on day 1 of week 4. He was given 3 doses of Neupogen and his blood counts have recovered well. He will complete 5 chemotherapy treatments today. His radiation completes next Monday and this will be his last planned concurrent chemotherapy. Plan: 1. We will proceed with week 5. He has missed 1 week due to blood counts and he is concurrent chemoradiation and has stage IIb disease. 2. Labs from March 10, 2020 were reviewed in detail and discussed with Mr. Umana and a copy was given to him. WBC 6.0, hemoglobin 13.2, platelets 146,000 ANC is 4770. Potassium 4.1 random glucose 88 creatinine 0.9 LFTs are normal alk phos is elevated at 142 but suspect this is due to his Neupogen injections. 3. He will continue his current plan of care and we will plan to continue Neupogen as needed. Due to the holiday and the fact that he will be going home we will not build to give him Neupogen for the next 2 days but have asked to recheck his CBC on Monday and determine if he is neutropenic we can give him the Neupogen then. He verbalized understanding and is in agreement. 4. We will plan to see him back in 4-5 weeks with CBC CMP and follow-up with Dr. Gant post treatment. 5. We discussed him utilizing the albuterol inhaler as needed. His states he does it maybe once or twice a day. I encouraged him to try to up to 4 times a day as needed for the cat like sounds from his breathing. I did not hear them today. 6. Mr. Umana was encouraged to contact us in the interim should questions or problems arise. Signed By: Prema Mcdaniel-, AOCNP Harlan Gant MD <<Signature on File>>
[2020-03-11] MEDS: sodium chloride 0.9% 250 ML 75 ML IV (09:55)
[2020-03-16 09:20] LABS: Basophils % 0.6 %; Eosinophils % 0.3 %; Hematocrit 38.3 % (42.0-52.0); Hemoglobin 12.3 g/dL (11.7-16.6); Lymphocytes # 0.4 10^3/uL (0.8-4.8); Lymphocytes % 9.9 %; Mean Corpuscular HGB Conc 32.1 g/dL (30.0-36.0); Mean Corpuscular Hemoglobin 32.3 pg (28.0-34.0); Mean Corpuscular Volume 100.5 fL (80-94); Mean Platelet Volume 10.2 fL (7.4-10.4); Monocytes # 0.3 10^3/uL (0.2-0.9); Monocytes % 8.5 %; Neutrophils # 2.84 10^3/uL (1.8-7.7); Neutrophils % 80.1 %; Nucleated Red Blood Cells % 0 %; Platelet Count 133 10^3/cmm (130-400); Red Blood Count 3.81 10^6/uL (4.1-5.3); Red Cell Distribution Width 15.6 % (12.1-15.1); White Blood Count 3.5 10^3/uL (4.0-10.0)
[2020-03-16 09:40] LABS: Alanine Aminotransferase 15 U/L (0-41); Alkaline Phosphatase 107 IU/L (40-130); Anion Gap 12.2 (5-19); Aspartate Amino Transferase 12 U/L (0-40); Blood Urea Nitrogen 16 mg/dL (8-23); Carbon Dioxide 28 mmol/L (22-29); Chloride 106 mmol/L (98-107); Globulin 1.9 g/dL (1.3-4.6); Glucose 85 mg/dL (65-115); Osmolality Calculated 294 mOsm/kg (285-295); Potassium 4.2 mmol/L (3.5-5.1); Sodium 142 mmol/L (136-145); Total Bilirubin 0.6 mg/dL (0.15-1.2); Total Protein 5.9 g/dL (6.6-8.7)
== END 2020-03-16 23:59 | disposition home or self-care (01) ==
LOC: ONCMED 05:15
PROVIDERS: Nurse Practitioner; Absent Provider Radiology Radiation Oncology; PCP Family Medicine; Visit Provider Internal Medicine Hematology & Oncology
DX: Z51.0 Encounter for antineoplastic radiation therapy (principal); Z51.11 Encounter for antineoplastic chemotherapy; C34.12 Malignant neoplasm of upper lobe, left bronchus or lung; J44.9 Chronic obstructive pulmonary disease, unspecified; M1A.9XX0 Chronic gout, unspecified, without tophus (tophi); I11.0 Hypertensive heart disease with heart failure; Z79.899 Other long term (current) drug therapy
CPT/HCPCS: 36591; 77336; 77386; 80053; 85025; 96367; 96372; 96413; 96417; 99214; J1100; J1200; J1442; J2469; J3490; J7050; J9045; J9264

== ENCOUNTER 2020-03-17 06:33 | Outpatient (RCR) | payer OTHER, MEDICARE, SELFPAY | END 2020-04-16 23:59 | disposition home or self-care (01) | LOC: ONCMED 06:33 | PROVIDERS: Absent Provider Radiology Radiation Oncology; PCP Family Medicine; Visit Provider Radiology Radiation Oncology | DX: Z51.0 Encounter for antineoplastic radiation therapy (principal); C34.12 Malignant neoplasm of upper lobe, left bronchus or lung | CPT/HCPCS: 77336; 77386 ==

== ENCOUNTER 2020-07-15 13:42 | Outpatient (CLI) | payer OTHER, MEDICARE, SELFPAY ==
--- NOTE | 2020-07-15 13:45 | CT_ITS ---
WS: [id number] CT CHEST TECHNIQUE: Noncontrast CT of the chest with coronal and sagittal reformatted images. CLINICAL INFORMATION: follow up of lung ca after treatment COMPARISON: CT chest January 22, 2020 and PET/CT December 21, 2019 DLP: 527.[address] scans at [facility] use at least one of these dose optimization techniques: automat ed exposure control; mA and/or kV adjustment per patient size (includes targeted exams where dose is matched to clinical indication); or iterative reconstruction. FINDINGS: Again seen is the left hilar and suprahilar mass significantly decreased in size compared to the prio r examinations. Residual soft tissue thickening along the 1.7 x 1.2 CM. Persistent nodular interstiti al infiltrates in the left upper lobe anteriorly not significantly changed compared to previous. A fe w hazy nodular densities in the left upper lobe about the left hilum likely inflammatory. Small left pleural effusion increased from previous. Right lung is well aerated. Chronic emphysematou s changes. No mediastinal or hilar lymphadenopathy. Aortic calcification. Coronary calcification. No axillary lymphadenopathy. Normal GE junction. Cholecystectomy clips. Adrenal glands are normal. Hypertrophic changes thoracic s pine. IMPRESSION: 1. Significant interval improvement left hilar and suprahilar mass with a small amount of residual s oft tissue thickening measuring 1.7 x 1.2 cm. Soft tissue thickening along the left hilum. Findings c onsistent with interval response to therapy. 2. Nodular interstitial infiltrates in the left upper lobe anteriorly similar in appearance to previ ous with a few new nodular densities likely inflammatory or radiation pneumonitis. Recommend 3 month interval follow-up. 3. Small left pleural effusion. 4. No mediastinal or hilar lymphadenopathy. 5. Cholecystectomy clips.
== END 2020-07-15 13:43 | disposition home or self-care (01) ==
LOC: RADWPI 13:45
PROVIDERS: PCP Family Medicine; Visit Provider Internal Medicine Pulmonary Disease
DX: J43.9 Emphysema, unspecified (principal); J90 Pleural effusion, not elsewhere classified; R91.8 Other nonspecific abnormal finding of lung field
CPT/HCPCS: 71250

== ENCOUNTER 2020-08-10 15:14 | Outpatient (CLI) | payer OTHER, MEDICARE, SELFPAY ==
--- NOTE | 2020-08-11 17:52 | ONC FU_ITS ---
Dr. Gant follow up note Patient: Jermain Umana Unit #: [id number]: 1940 Dicatated By: Harlan Gant M.D.Date of Visit:Aug 10, 2020 Onc Med Follow-up/Prog Note History of Present Illness: Mr. Umana is an 79-year-old gentleman with a history of left upper lobe lung nodule. It was first noticed in October 2018 during work-up for left carotid artery endarterectomy. He recently started having right upper chest pain for which he underwent a CT scan of chest on December 03, 2019. The CT showed left hilar mass size 3 x 3 x 2 cm. He was referred to pulmonology and underwent CT PET scan on December 21, 2019. The PET/CT reported a 2.5 x 3.2 cm left upper lobe lung mass with SUV of 8.1 representing progression since a previous PET scan (from 10/27/2018-we do not have this report available) and also there was a new adjacent infiltrate most likely obstructive atelectasis. Suspicious upper left hilar node which measures roughly 2.2 centimeter with SUV of 6.6 and a new, questionable activity is present in the left internal mammary lymph node. Mr Umana underwent bronchoscopy on January 03, 2020 which showed left main stem bronchus appears to be narrowed due to extrinsic compression but no endobronchial lesion. A fine-needle aspiration was performed from station 7 and 10 left. 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 Mr Umana has history of smoking about 2 packs a day for 25 years started at age 14 quit when he was 38 years old. Now he has underlying COPD. Mr Umana reported that he has lost about 30 pounds in over 1 month because of poor appetite. 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 Therefore the second best option would be combined chemoradiation with weekly carboplatin/Taxol concurrent with radiation therapy. He began his first week of chemotherapy on 02/03/2020. Due to steroid induced insomnia, weekly Taxol was switched to weekly Abraxane on February 19, 2020 along with weekly carboplatin concurrent with radiation therapy. He has tolerated this well. Growth factor support with Neupogen for 3 doses was added after cycle 3. His day 7 ANC was 1300. His last dose of Neupogen for cycle 3 was on February 28, 2020.And last weekly chemotherapy with carboplatin/Abraxane was given on March 11, 2020 and patient completed concurrent radiation therapy on March 17, 2020, As per recommendations, patient was supposed to start maintenance immunotherapy with durvalumab but as per patient and his on April 13, 2020, patient rolled over out of the bed and had a fall which caused right hip fracture for which he underwent internal fixation in [facility], patient was also diagnosed with Covid infection, after that [facility], because of all this and associated with generalized weakness and fatigue patient did not make his return appointment until today. Follow-up CT scan of chest done on July 16, [address] Philippe, paralegal legal secretary showed significant interval improvement left hilar and suprahilar mass with small amount of residual soft tissue thickening measuring 1.7 x 1.2 cm. Soft tissue thickening along the left hilum. Findings consistent with interval response to therapy. No mediastinal or hilar lymphadenopathy Patient denies any fever chills, denies any nausea or vomiting denies any diarrhea constipation, denies any hemoptysis or hematemesis, denies any chest pain, denies any melena or hematochezia, no headaches blurred vision or double vision. Medications: Albuterol Sulfate 1 Puff(s) (of 108 (90 base) mcg/act) Aerosol Powder, Breath Activated Inhalation b.i.d. PRN, Donepezil HCl 1 Tablet (of 5 mg) Oral at bedtime, Flonase Allergy Relief 1 (50 mcg/act) Suspension Nasal daily, Norvasc 1 Tablet (of 5 mg) Oral daily, Pantoprazole Sodium 1 Tablet (of 40 mg) Tablet, enteric coated Oral daily, prednisoLONE Acetate 1 Drop(s) (of 1 %) Suspension Ophthalmic b.i.d., Umeclidinium-Vilanterol (62.5-25 mcg/inh) Aerosol Powder, Breath Activated Inhalation daily, Zocor 1 Tablet (of 40 mg) Oral daily Allergies: No Known Allergies. Review of Systems: Review of Systems is not available for this patient. Vital Signs: Performed on Aug 10, 2020 15:31 Height - 68.00 in Weight - 133.4 lbs (LOW) BSA - 1.72 sq.m BMI - 20.28 Temperature - 98.0 F (LOW) Pulse - 76 /min Respiration - 18 /min BP - 148/74 mm(hg) (HIGH) O2 Sat - 98 % Pain - 0 Fatigue - 0 Performance Status: 2 - Ambulatory/capable of all self-care, unable to perform any work activities. Up and about more than 50% of waking hours. (ECOG) Physical Examination: ENMT - No mouth sores, no thrush, no jaundice, Respiratory - Lungs are clear to auscultation, Cardiovascular - Regular rate and rhythm of heart, Abdomen - , Soft, bowel sounds present, Extremities - No visible edema. Lab/Imaging: Test performed on Aug 06, 2020 13:26 Glucose 139 mg/dL BUN 12 mg/dL Creatinine 0.7 mg/dL Cr Clearance (Est) 69.88 mL/min Sodium 142 mmol/L Potassium 3.5 mmol/L Chloride 105 mmol/L CO2 29 mmol/L Calcium 9.4 mg/dL Protein, Total 7.1 g/dL Albumin 4.1 g/dL Bilirubin, Total 0.3 mg/dL Alkaline Phosphatase 109 IU/L AST (SGOT) 24 IU/L ALT (SGPT) 12 IU/L WBC 7.7 10^9/L RBC 4.20 10^12/L HGB 12.5 g/dL HCT 40.0 % MCV 95.2 fl MCH 29.8 pg MCHC 31 g/dL RDW 15.0 % Platelet Count 190 10^9/L MPV 9.7 fL Neutrophils (Gran) 6.0 10^9/L Lymphocytes 0.7 10^9/L Monocytes 0.8 10^9/L Eosinophils 0.2 10^9/L Basophils 0.1 10^9/L Manual Lymphocytes 9.6 % Manual Monocytes 9.8 % Manual Eosinophils 2.6 % Manual Basophils 0.6 % Test performed on Mar 16, 2020 09:05 Anion Gap 12.2 Osmolality - Calculated 294 mOsm/kg Globulin 1.9 g/dL Neutrophil % 80.1 % Lymphocyte % 9.9 % Monocyte % 8.5 % Eosinophil % 0.3 % Basophils % 0.6 % NRBC % 0 % Test performed on Mar 03, 2020 08:45 CBC Slide Review Slide Review Perform SLIDE REVIEW AGREES WITH AUTOMATED RESULTS ST Impression: Squamous cell carcinoma per station 10 L lymph node biopsy per bronchoscopy done on January 03, 2020 CT PET scan done on December 21, 2019 showed progression of left upper lobe mass when compared with CT PET scan done on October 27, 2018, now mass measures 2.5 x 3.2 cm with SUV of 8.1, new left hilar lymph node measures 2.2 cm with SUV of 6.6 and questionable activity in the left internal mammary lymph node Clinical stage 2B (T2a (>3cm) N1, Mx ) COPD Chronic gout, Hypertension. discussed with Mr Umana his bronchoscopy/pathology report as well as CT PET scan findings. 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 However, due to underlying comorbid condition including COPD, as well as age, it is felt that he not a candidate for surgery. Therefore the second best option would be combined chemoradiation with weekly carboplatin/Taxol concurrent with radiation therapy. Mr Umana began his first week of treatment on 02/03/2020. MR?I of the head is pending. Clinically, patient is done well, tolerating combined chemoradiation with weekly carboplatin/Taxol well but with expected side effect, patient was having severe insomnia due to steroids required has a premedication with the Taxol so his treatment was changed from Taxol to weekly Abraxane along with weekly carboplatin concurrent with radiation therapy. With this regimen patient will not require premedication with steroids. After week 3 he had chemotherapy induced neutropenia with an ANC of 1320 on day 1 of week 4. He was given 3 doses of Neupogen and his blood counts have recovered well. Completed weekly carboplatin/Abraxane on March 11, 2020 and current radiation therapy on March 17, 2020, Patient lost follow-up because of right hip fracture due to fall on April 13, 2020 and also diagnosed with Covid infection [facility] in [facility] Plan: Discussed with patient regarding his labs white blood count 7.7 hemoglobin 12.5 hematocrit 40 platelets 190,000 CMP within normal limits and CT scan of chest which was ordered by pulmonology which shows good response to therapy. Clinically, patient doing well, now recovering from right hip fracture for which he underwent internal fixation and, as far as his non-small cell lung cancer is concerned, his follow-up CT scan of the chest followed by pulmonology shows good response to therapy so we will continue to monitor and repeat CT scan of chest in 3 months and patient return to clinic in 3 months with CBC CMP and follow-up CT scan of chest in the meantime he will continue with monthly port maintenance at [facility] in [facility] Signed By: Harlan Gant M.D. <<Signature on File>>
== END 2020-08-10 15:15 | disposition home or self-care (01) ==
PROVIDERS: PCP Family Medicine; Visit Provider Internal Medicine Hematology & Oncology
DX: C34.12 Malignant neoplasm of upper lobe, left bronchus or lung (principal); J44.9 Chronic obstructive pulmonary disease, unspecified; M10.9 Gout, unspecified; I10 Essential (primary) hypertension; Z79.899 Other long term (current) drug therapy
CPT/HCPCS: 87635; 99214

== ENCOUNTER 2020-08-17 12:32 | Outpatient (CLI) | payer OTHER, SELFPAY ==
--- NOTE | 2020-08-17 13:54 | PFTS_ITS ---
Date of Study:08/17/20 Date of Dictation: MECHANICS: Forced vital capacity (FVC) is reduced. Forced expiratory volume in one second (FEV1) is reduced. FEV1/FVC is reduced. FLOW VOLUME LOOP: Reduced flow at all lung volumes with significant scooping. LUNG VOLUMES: Total lung capacity (TLC) is normal. Residual volume (RV) is increased. DIFFUSING CAPACITY FOR CARBON MONOXIDE: Severely reduced. INTERPRETATION: The postbronchodilator spirometry is consistent with severe airflow obstruction. There is no significant postbronchodilator response. The lung volumes are consistent with air trapping. Gas exchange (DLCO) is severely reduced. MTDD
== END 2020-08-17 12:33 | disposition home or self-care (01) ==
LOC: RT 12:32
PROVIDERS: PCP Family Medicine; Visit Provider Internal Medicine Pulmonary Disease
DX: J43.9 Emphysema, unspecified (principal)
CPT/HCPCS: 94060; 94618; 94726; 94729; J7611

== ENCOUNTER 2020-10-27 12:57 | Outpatient (CLI) | payer OTHER, SELFPAY ==
--- NOTE | 2020-10-27 13:04 | CT_ITS ---
WS: [id number] CT CHEST WITH INTRAVENOUS CONTRAST HISTORY: LUNG CANCER TECHNIQUE: Contiguous 5 mm axial imaging performed on the thorax. Coronal and sagittal reformats are submitted. All CT scans at [facility] use at least one of these dose optimization techniq ues: automated exposure control; mA and/or kV adjustment per patient size (includes targeted exams wh ere dose is matched to clinical indication); or iterative reconstruction. CONTRAST: Omnipaque 300; 95 mL IV. DLP: 673.15 mGycm COMPARISON: 07/15/2020 and 01/22/2020 Lungs and central airway: Soft tissue thickening along the medial LEFT upper lung abutting the medias tinum is stable. Postradiation fibrosis and scarring. There is mild progression of the linear bronchi al wall thickening extending anteriorly in the LEFT upper lobe probably post treatment bronchiectasis . A few nodular asymmetries in the LEFT upper lobe have either resolved or improved. Pleura: Very small layering LEFT pleural effusion is stable. There is mild nodularity and thickening along both major fissures but no progression. No increase within the soft tissue component. Heart and pericardium: Normal size heart with no pericardial effusion. Mediastinum and nicholas: Mild soft tissue thickening at the LEFT hilum is contiguous with the scarring a nd postradiation changes along the lateral LEFT mediastinum. No adenopathy identified. Vessels: Moderate atherosclerosis aorta. Normal size pulmonary artery. Chest wall and lower neck: RIGHT subclavian Port-A-Cath in good position. Upper abdomen: Small hiatal hernia. Prior cholecystectomy. No metastatic disease within the liver or adrenal glands. Osseous structures: Advanced degenerative changes within the spine. Large bridging clawlike osteophyt es throughout the thoracic spine. CT/CT chest w con* [id number] IMPRESSION: 1. Stable appearance of the postradiation fibrosis along the medial LEFT media stinum and LEFT upper lobe. New mild bronchiectasis in the LEFT upper lobe. No increase in size of mass or adenopathy. 2. Small LEFT pleural effusion is stable. 3. Severe emphysema.
[2020-10-27 13:25] LABS: Blood Urea Nitrogen 16 mg/dL (8-23)
[2020-10-27] MEDS: iohexol 300 mg/mL 100 mL Btl IV (13:33)
== END 2020-10-27 12:58 | disposition home or self-care (01) ==
PROVIDERS: PCP Family Medicine; Visit Provider Internal Medicine Hematology & Oncology
DX: C34.12 Malignant neoplasm of upper lobe, left bronchus or lung (principal); J43.9 Emphysema, unspecified; J90 Pleural effusion, not elsewhere classified
CPT/HCPCS: 71260; 82565; 84520; Q9967

== ENCOUNTER 2020-11-09 13:57 | Outpatient (CLI) | payer OTHER, MEDICARE, SELFPAY ==
[2020-11-09 14:40] LABS: Basophils # 0.1 10^3/uL (0.0-0.1); Basophils % 0.7 %; Eosinophils # 0.2 10^3/uL (0.0-0.8); Eosinophils % 2.2 %; Hematocrit 41.1 % (42.0-52.0); Hemoglobin 12.9 g/dL (11.7-16.6); Lymphocytes # 1.1 10^3/uL (0.8-4.8); Mean Corpuscular HGB Conc 31.4 g/dL (30.0-36.0); Mean Corpuscular Hemoglobin 30.6 pg (28.0-34.0); Mean Corpuscular Volume 97.6 fL (80-94); Mean Platelet Volume 11.4 fL (7.4-10.4); Monocytes # 0.8 10^3/uL (0.2-0.9); Monocytes % 11.8 %; Neutrophils # 4.61 10^3/uL (1.8-7.7); Neutrophils % 69.2 %; Nucleated Red Blood Cells % 0 %; Platelet Count 171 10^3/cmm (130-400); Red Blood Count 4.21 10^6/uL (4.1-5.3); Red Cell Distribution Width 15.2 % (12.1-15.1); White Blood Count 6.7 10^3/uL (4.0-10.0)
[2020-11-09 15:00] LABS: Chloride 106 mmol/L (98-107); Potassium 4.2 mmol/L (3.5-5.1); Sodium 142 mmol/L (136-145)
[2020-11-09 16:04] LABS: Alanine Aminotransferase 13 U/L (0-41); Albumin Level 3.9 g/dL (3.5-5.2); Alkaline Phosphatase 116 IU/L (40-130); Anion Gap 17.2 (5-19); Aspartate Amino Transferase 19 U/L (0-40); Blood Urea Nitrogen 14 mg/dL (8-23); Carbon Dioxide 23 mmol/L (22-29); Globulin 2.5 g/dL (1.3-4.6); Glucose 90 mg/dL (65-115); Osmolality Calculated 294 mOsm/kg (285-295); Total Bilirubin 0.3 mg/dL (0.15-1.2); Total Protein 6.4 g/dL (6.6-8.7)
--- NOTE | 2020-11-09 16:19 | ONC FU_ITS ---
Dr. Gant follow up note Patient: Jermain Umaan Unit #: [id number]: 1940 Dicatated By: Harlan Gant M.D.Date of Visit:Nov 09, 2020 Onc Med Follow-up/Prog Note History of Present Illness: Mr. Umana is an 79-year-old gentleman with a history of left upper lobe lung nodule. It was first noticed in October 2018 during work-up for left carotid artery endarterectomy. He recently started having right upper chest pain for which he underwent a CT scan of chest on December 03, 2019. The CT showed left hilar mass size 3 x 3 x 2 cm. He was referred to pulmonology and underwent CT PET scan on December 21, 2019. The PET/CT reported a 2.5 x 3.2 cm left upper lobe lung mass with SUV of 8.1 representing progression since a previous PET scan (from 10/27/2018-we do not have this report available) and also there was a new adjacent infiltrate most likely obstructive atelectasis. Suspicious upper left hilar node which measures roughly 2.2 centimeter with SUV of 6.6 and a new, questionable activity is present in the left internal mammary lymph node. Mr Umana underwent bronchoscopy on January 03, 2020 which showed left main stem bronchus appears to be narrowed due to extrinsic compression but no endobronchial lesion. A fine-needle aspiration was performed from station 7 and 10 left. 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 Mr Umana has history of smoking about 2 packs a day for 25 years started at age 14 quit when he was 38 years old. Now he has underlying COPD. Mr Umana reported that he has lost about 30 pounds in over 1 month because of poor appetite. 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 Therefore the second best option would be combined chemoradiation with weekly carboplatin/Taxol concurrent with radiation therapy. He began his first week of chemotherapy on 02/03/2020. Due to steroid induced insomnia, weekly Taxol was switched to weekly Abraxane on February 19, 2020 along with weekly carboplatin concurrent with radiation therapy. He has tolerated this well. Growth factor support with Neupogen for 3 doses was added after cycle 3. His day 7 ANC was 1300. His last dose of Neupogen for cycle 3 was on February 28, 2020.And last weekly chemotherapy with carboplatin/Abraxane was given on March 11, 2020 and patient completed concurrent radiation therapy on March 17, 2020, As per recommendations, patient was supposed to start maintenance immunotherapy with durvalumab but as per patient and his on April 13, 2020, patient rolled over out of the bed and had a fall which caused right hip fracture for which he underwent internal fixation in [facility], patient was also diagnosed with Covid infection, after that he was placed in [facility] for rehab and recovery, because of all this and associated with generalized weakness and fatigue patient did not make his return appointment until today. Follow-up CT scan of chest done on July 16, [address] Philippe, clinical nursing coordinator showed significant interval improvement left hilar and suprahilar mass with small amount of residual soft tissue thickening measuring 1.7 x 1.2 cm. Soft tissue thickening along the left hilum. Findings consistent with interval response to therapy. No mediastinal or hilar lymphadenopathy Came for follow-up, denies any specific complaints, no fever chills no nausea or vomiting, no diarrhea constipation, no hemoptysis or hematemesis, appetite is good, patient get his monthly port maintenance done at [facility]. Medications: Albuterol Sulfate 1 Puff(s) (of 108 (90 base) mcg/act) Aerosol Powder, Breath Activated Inhalation b.i.d. PRN, Donepezil HCl 1 Tablet (of 5 mg) Oral at bedtime, Flonase Allergy Relief 1 (50 mcg/act) Suspension Nasal daily, Norvasc 1 Tablet (of 5 mg) Oral daily, Pantoprazole Sodium 1 Tablet (of 40 mg) Tablet, enteric coated Oral daily, prednisoLONE Acetate 1 Drop(s) (of 1 %) Suspension Ophthalmic b.i.d., Umeclidinium-Vilanterol (62.5-25 mcg/inh) Aerosol Powder, Breath Activated Inhalation daily, Zocor 1 Tablet (of 40 mg) Oral daily Allergies: No Known Allergies. Review of Systems: Review of Systems is not available for this patient. Vital Signs: Performed on Nov 09, 2020 15:46 Height - 68.00 in Weight - 137.4 lbs (HIGH) BSA - 1.74 sq.m BMI - 20.89 Temperature - 97.4 F (LOW) Pulse - 56 /min (LOW) Respiration - 18 /min BP - 123/67 mm(hg) O2 Sat - 92 % (LOW) Pain - 0 Fatigue - 0 Performance Status: 0 - Fully active, able to carry on all predisease activities without restrictions. (ECOG) Physical Examination: ENMT - No mouth sores, no thrush, no jaundice, Respiratory - Lungs are clear to auscultation, Cardiovascular - Regular rate and rhythm of heart, Abdomen - Soft, bowel sounds present, Extremities - No visible edema. Lab/Imaging: Test performed on Aug 06, 2020 13:26 Glucose 139 mg/dL BUN 12 mg/dL Creatinine 0.7 mg/dL Cr Clearance (Est) 69.88 mL/min Sodium 142 mmol/L Potassium 3.5 mmol/L Chloride 105 mmol/L CO2 29 mmol/L Calcium 9.4 mg/dL Protein, Total 7.1 g/dL Albumin 4.1 g/dL Bilirubin, Total 0.3 mg/dL Alkaline Phosphatase 109 IU/L AST (SGOT) 24 IU/L ALT (SGPT) 12 IU/L WBC 7.7 10^9/L RBC 4.20 10^12/L HGB 12.5 g/dL HCT 40.0 % MCV 95.2 fl MCH 29.8 pg MCHC 31 g/dL RDW 15.0 % Platelet Count 190 10^9/L MPV 9.7 fL Neutrophils (Gran) 6.0 10^9/L Lymphocytes 0.7 10^9/L Monocytes 0.8 10^9/L Eosinophils 0.2 10^9/L Basophils 0.1 10^9/L Manual Lymphocytes 9.6 % Manual Monocytes 9.8 % Manual Eosinophils 2.6 % Manual Basophils 0.6 % Impression: Squamous cell carcinoma per station 10 L lymph node biopsy per bronchoscopy done on January 03, 2020 CT PET scan done on December 21, 2019 showed progression of left upper lobe mass when compared with CT PET scan done on October 27, 2018, now mass measures 2.5 x 3.2 cm with SUV of 8.1, new left hilar lymph node measures 2.2 cm with SUV of 6.6 and questionable activity in the left internal mammary lymph node Clinical stage 2B (T2a (>3cm) N1, Mx ) COPD Chronic gout, Hypertension. discussed with Mr Umana his bronchoscopy/pathology report as well as CT PET scan findings. 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 However, due to underlying comorbid condition including COPD, as well as age, it is felt that he not a candidate for surgery. Therefore the second best option would be combined chemoradiation with weekly carboplatin/Taxol concurrent with radiation therapy. Mr Umana began his first week of treatment on 02/03/2020. MR?I of the head is pending. Clinically, patient is done well, tolerating combined chemoradiation with weekly carboplatin/Taxol well but with expected side effect, patient was having severe insomnia due to steroids required has a premedication with the Taxol so his treatment was changed from Taxol to weekly Abraxane along with weekly carboplatin concurrent with radiation therapy. With this regimen patient will not require premedication with steroids. After week 3 he had chemotherapy induced neutropenia with an ANC of 1320 on day 1 of week 4. He was given 3 doses of Neupogen and his blood counts have recovered well. Completed weekly carboplatin/Abraxane on March 11, 2020 and current radiation therapy on March 17, 2020, Patient lost follow-up because of right hip fracture due to fall on April 13, 2020 and also diagnosed with Covid infection eventually end up in retirement follow-up CT scan of chest done on October 27, 2020 shows stable appearance of postradiation fibrosis along the medial left mediastinum and left upper lobe. No increase in size of mass or adenopathy. Small left pleural effusion stable. Severe emphysema Plan: Discussed with patient regarding his labs white blood count 6.7 hemoglobin 12.9 hematocrit 41.1 platelets 171,000 CMP within normal limits and follow-up CT scan of chest done on October 27, 2020 shows stable appearance of postradiation fibrosis along the medial left mediastinum and left upper lobe. No increase in size of mass or adenopathy. Small left pleural effusion stable. Severe emphysema Clinically, patient doing well with no new signs symptom suggestive of disease progression, his follow-up CT scan of chest showed no evidence of disease progression and lab work-up is within normal range, will continue to monitor he will return to clinic in 4 months with CBC CMP and follow-up CT scan of chest in the meantime he will continue monthly port maintenance at [facility] Signed By: Harlan Gant M.D. <<Signature on File>>
== END 2020-11-09 13:58 | disposition home or self-care (01) ==
LOC: ONCMED 14:00
PROVIDERS: PCP Family Medicine; Visit Provider Internal Medicine Hematology & Oncology
DX: Z08 Encounter for follow-up examination after completed treatment for malignant neoplasm (principal); Z85.118 Personal history of other malignant neoplasm of bronchus and lung; J44.9 Chronic obstructive pulmonary disease, unspecified; M10.9 Gout, unspecified; I10 Essential (primary) hypertension; Z79.899 Other long term (current) drug therapy; Z92.21 Personal history of antineoplastic chemotherapy
CPT/HCPCS: 36591; 80053; 85025; 99214

== ENCOUNTER 2021-03-04 09:50 | Outpatient (CLI) | payer OTHER, SELFPAY ==
[2021-03-04 11:00] LABS: Basophils % 0.5 %; Eosinophils # 0.3 10^3/uL (0.0-0.8); Eosinophils % 3.2 %; Hematocrit 46.6 % (42.0-52.0); Hemoglobin 15.3 g/dL (11.7-16.6); Lymphocytes # 0.9 10^3/uL (0.8-4.8); Lymphocytes % 11.4 %; Mean Corpuscular HGB Conc 32.8 g/dL (30.0-36.0); Mean Corpuscular Hemoglobin 31.9 pg (28.0-34.0); Mean Corpuscular Volume 97.1 fl (80-94); Mean Platelet Volume 11.2 fL (7.4-10.4); Monocytes # 0.9 10^3/uL (0.2-0.9); Monocytes % 11.1 %; Neutrophils # 5.83 10^3/uL (1.8-7.7); Neutrophils % 73.5 %; Nucleated Red Blood Cells % 0 %; Platelet Count 173 10^3/cmm (130-400); Red Cell Distribution Width 13.6 % (12.1-15.1); White Blood Count 7.9 10^3/uL (4.0-10.0)
--- NOTE | 2021-03-04 11:07 | CT_ITS ---
WS: [id number] CT CHEST TECHNIQUE: Contrast enhanced CT of the chest with coronal and sagittal reformatted images. CLINICAL INFORMATION: RESTAGING EVALUATION/LUNG CANCER COMPARISON: CT 10/27/2020 and 07/15/2020. PET CT December 21, 2019 DLP: 504.[address] scans at [facility] use at least one of these dose optimization techniques: automated e xposure control; mA and/or kV adjustment per patient size (includes targeted exams where dose is matc hed to clinical indication); or iterative reconstruction. FINDINGS: Advanced chronic emphysematous changes. Previously described radiation fibrosis along the medial left upper mediastinum is unchanged in appearance with air bronchograms. Stable bronchiectasis in the lef t upper lobe. No evidence of recurrent or progressed intraparenchymal mass or lymphadenopathy. Left m ain stem bronchus is patent. Trace left pleural fluid. Calcified parenchymal scarring along the right major fissure is unchanged. No other suspicious pulmon gabriella parenchymal abnormalities. Normal caliber thoracic aorta. Aortic calcification. Proximal main pulmonary arteries are normal. Cor onary calcification. No axillary lymphadenopathy. Adrenal glands are normal. Cholecystectomy clips. Small esophageal hiata l hernia. Hypertrophic changes thoracic spine with ankylosis. CT/CT chest w con* [id number] IMPRESSION: 1. 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 No evidence of recurrent or progressive disease. 2. Tiny left pleural effusion in the mid left lung has nearly resolved. 3. No mediastinal or hilar lymphadenopathy. 4. Moderate chronic emphysematous changes. No acute pulmonary infiltrates or p leural fluid. 5. No other significant changes compared to previous.
[2021-03-04 11:24] LABS: Alanine Aminotransferase 12 U/L (0-41); Albumin Level 4.3 g/dL (3.5-5.2); Alkaline Phosphatase 117 IU/L (40-130); Anion Gap 19.1 (5-19); Aspartate Amino Transferase 17 U/L (0-40); Blood Urea Nitrogen 13 mg/dL (8-23); Calcium 8.9 mg/dL (8.5-10.5); Carbon Dioxide 20 mmol/L (22-29); Chloride 103 mmol/L (98-107); Globulin 2.9 g/dL (1.3-4.6); Glucose 96 mg/dL (65-115); Osmolality Calculated 286 mOsm/kg (285-295); Potassium 4.1 mmol/L (3.5-5.1); Sodium 138 mmol/L (136-145); Total Bilirubin 0.5 mg/dL (0.15-1.2); Total Protein 7.2 g/dL (6.6-8.7)
== END 2021-03-04 09:51 | disposition home or self-care (01) ==
PROVIDERS: PCP Family Medicine; Visit Provider Internal Medicine Hematology & Oncology
DX: C34.12 Malignant neoplasm of upper lobe, left bronchus or lung (principal); J84.10 Pulmonary fibrosis, unspecified; J90 Pleural effusion, not elsewhere classified; J43.9 Emphysema, unspecified
CPT/HCPCS: 36415; 71260; 80053; 85025; Q9967

== ENCOUNTER 2021-03-15 11:42 | Outpatient (CLI) | payer OTHER, SELFPAY ==
[2021-03-15 12:17] LABS: Basophils # 0.1 10^3/uL (0.0-0.1); Basophils % 0.6 %; Eosinophils # 0.3 10^3/uL (0.0-0.8); Eosinophils % 3.3 %; Hematocrit 43.6 % (42.0-52.0); Hemoglobin 14.8 g/dL (11.7-16.6); Lymphocytes # 1.2 10^3/uL (0.8-4.8); Lymphocytes % 15.2 %; Mean Corpuscular HGB Conc 33.9 g/dL (30.0-36.0); Mean Corpuscular Hemoglobin 32.7 pg (28.0-34.0); Mean Corpuscular Volume 96.5 fl (80-94); Mean Platelet Volume 10.6 fL (7.4-10.4); Monocytes # 0.8 10^3/uL (0.2-0.9); Monocytes % 10.5 %; Neutrophils # 5.48 10^3/uL (1.8-7.7); Neutrophils % 70.3 %; Nucleated Red Blood Cells % 0 %; Platelet Count 183 10^3/cmm (130-400); Red Blood Count 4.52 10^6/uL (4.1-5.3); Red Cell Distribution Width 13.5 % (12.1-15.1); White Blood Count 7.8 10^3/uL (4.0-10.0)
[2021-03-15 12:33] LABS: Alanine Aminotransferase 14 U/L (0-41); Albumin Level 4.1 g/dL (3.5-5.2); Alkaline Phosphatase 112 IU/L (40-130); Anion Gap 17.2 (5-19); Aspartate Amino Transferase 20 U/L (0-40); Blood Urea Nitrogen 15 mg/dL (8-23); Calcium 8.7 mg/dL (8.5-10.5); Carbon Dioxide 23 mmol/L (22-29); Chloride 107 mmol/L (98-107); Globulin 2.4 g/dL (1.3-4.6); Glucose 99 mg/dL (65-115); Osmolality Calculated 297 mOsm/kg (285-295); Potassium 4.2 mmol/L (3.5-5.1); Sodium 143 mmol/L (136-145); Total Bilirubin 0.5 mg/dL (0.15-1.2); Total Protein 6.5 g/dL (6.6-8.7)
--- NOTE | 2021-03-15 15:39 | ONC FU_ITS ---
Dr. Gant follow up note Patient: Jermain Umana Unit #: [id number]: [id number] Dicatated By: Harlan Gant M.D.Date of Visit:Mar 15, 2021 Onc Med Follow-up/Prog Note History of Present Illness: Mr. Umana is an 80-year-old gentleman with a history of left upper lobe lung nodule. It was first noticed in October 2018 during work-up for left carotid artery endarterectomy. He recently started having right upper chest pain for which he underwent a CT scan of chest on December 03, 2019. The CT showed left hilar mass size 3 x 3 x 2 cm. He was referred to pulmonology and underwent CT PET scan on December 21, 2019. The PET/CT reported a 2.5 x 3.2 cm left upper lobe lung mass with SUV of 8.1 representing progression since a previous PET scan (from 10/27/2018-we do not have this report available) and also there was a new adjacent infiltrate most likely obstructive atelectasis. Suspicious upper left hilar node which measures roughly 2.2 centimeter with SUV of 6.6 and a new, questionable activity is present in the left internal mammary lymph node. Mr Umana underwent bronchoscopy on January 03, 2020 which showed left main stem bronchus appears to be narrowed due to extrinsic compression but no endobronchial lesion. A fine-needle aspiration was performed from station 7 and 10 left. 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 Mr Umana has history of smoking about 2 packs a day for 25 years started at age 14 quit when he was 38 years old. Now he has underlying COPD. Mr Umana reported that he has lost about 30 pounds in over 1 month because of poor appetite. 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 Therefore the second best option would be combined chemoradiation with weekly carboplatin/Taxol concurrent with radiation therapy. He began his first week of chemotherapy on 02/03/2020. Due to steroid induced insomnia, weekly Taxol was switched to weekly Abraxane on February 19, 2020 along with weekly carboplatin concurrent with radiation therapy. He has tolerated this well. Growth factor support with Neupogen for 3 doses was added after cycle 3. His day 7 ANC was 1300. His last dose of Neupogen for cycle 3 was on February 28, 2020.And last weekly chemotherapy with carboplatin/Abraxane was given on March 11, 2020 and patient completed concurrent radiation therapy on March 17, 2020, As per recommendations, patient was supposed to start maintenance immunotherapy with durvalumab but as per patient and his on April 13, 2020, patient rolled over out of the bed and had a fall which caused right hip fracture for which he underwent internal fixation in [facility], patient was also diagnosed with Covid infection, after that he was placed in alf for rehab and recovery, because of all this and associated with generalized weakness and fatigue patient did not make his return appointment until today. Follow-up CT scan of chest done on July 16, [address] Philippe, glove tagger showed significant interval improvement left hilar and suprahilar mass with small amount of residual soft tissue thickening measuring 1.7 x 1.2 cm. Soft tissue thickening along the left hilum. Findings consistent with interval response to therapy. No mediastinal or hilar lymphadenopathy Follow-up CT scan of chest done on March 04, 2021 showed previously described radiation fibrosis in the left upper lobe along the mediastinum is unchanged. No evidence of recurrent and progressive disease. Tiny left pleural effusion in the mid left lung has nearly resolved. No mediastinal or hilar lymphadenopathy. Came for follow-up, denies any specific complaints, no fever chills, no nausea or vomiting, no diarrhea constipation, appetite is good, patient is gaining weight, patient denies any new bony pain denies any jaundice denies any headaches blurred vision double vision, denies any weight loss. Denies any shortness of breath or wheezing Medications: Albuterol Sulfate 1 Puff(s) (of 108 (90 base) mcg/act) Aerosol Powder, Breath Activated Inhalation b.i.d. PRN, Donepezil HCl 1 Tablet (of 5 mg) Oral at bedtime, Flonase Allergy Relief 1 (50 mcg/act) Suspension Nasal daily, Norvasc 1 Tablet (of 5 mg) Oral daily, Pantoprazole Sodium 1 Tablet (of 40 mg) Tablet, enteric coated Oral daily, prednisoLONE Acetate 1 Drop(s) (of 1 %) Suspension Ophthalmic b.i.d., Umeclidinium-Vilanterol (62.5-25 mcg/inh) Aerosol Powder, Breath Activated Inhalation daily, Zocor 1 Tablet (of 40 mg) Oral daily Allergies: No Known Allergies. Review of Systems: Review of Systems is not available for this patient. Vital Signs: Performed on Mar 15, 2021 14:18 Height - 68.00 in Weight - 147.0 lbs (HIGH) BSA - 1.79 sq.m BMI - 22.35 Temperature - 97.3 F (LOW) Pulse - 87 /min Respiration - 16 /min BP - 128/68 mm(hg) O2 Sat - 93 % (LOW) Pain - 0 Fatigue - 0 Performance Status: 1 - No physically strenuous activity, but ambulatory and able to carry out light or sedentary work (e.g. office work, light house work). (ECOG) Physical Examination: ENMT - No mouth sores, no thrush, no jaundice, Respiratory - Lungs are clear to auscultation, Cardiovascular - Regular rate and rhythm of heart , Abdomen - Soft, bowel sounds present, Extremities - No visible edema. Lab/Imaging: Most recent lab results are not available for this patient. 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 discussed with Mr Umana his bronchoscopy/pathology report as well as CT PET scan findings. 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 However, due to underlying comorbid condition including COPD, as well as age, it is felt that he not a candidate for surgery. s/p combined chemoradiation with weekly carboplatin/Taxol concurrent with radiation therapy. Mr Umana began his first week of treatment on 02/03/2020. Clinically, patient is done well, tolerating combined chemoradiation with weekly carboplatin/Taxol well but with expected side effect, patient was having severe insomnia due to steroids required has a premedication with the Taxol so his treatment was changed from Taxol to weekly Abraxane along with weekly carboplatin concurrent with radiation therapy. With this regimen patient will not require premedication with steroids. After week 3 he had chemotherapy induced neutropenia with an ANC of 1320 on day 1 of week 4. He was given 3 doses of Neupogen and his blood counts have recovered well. Completed weekly carboplatin/Abraxane on March 11, 2020 and current radiation therapy on March 17, 2020, Patient lost follow-up because of right hip fracture due to fall on April 13, 2020 and also diagnosed with Covid infection eventually end up in alf follow-up CT scan of chest done on October 27, 2020 shows stable appearance of postradiation fibrosis along the medial left mediastinum and left upper lobe. No increase in size of mass or adenopathy. Small left pleural effusion stable. Severe emphysema Plan: Discussed with patient regarding his labs, white blood count 7.8 hemoglobin 14.8 hematocrit 43.6 plateletsDiscussed with patient regarding his labs white blood count seven-point 183,000 CMP within normal limits Follow-up CT scan of chest done on March 04, 2021 shows no evidence of recurrence of or progressive disease, no mediastinal or hilar lymphadenopathy, tiny left pleural effusion in the mid lung has nearly resolved. Clinically, patient doing well with no new signs suggestive of recurrence of disease, overall feeling well his lab work-up is within normal range we will continue to monitor and he will return to clinic in 6 months with CBC CMP and follow-up CT scan of chest. Signed By: Harlan Gant M.D. <<Signature on File>>
== END 2021-03-15 11:43 | disposition home or self-care (01) ==
LOC: ONCMED 11:45
PROVIDERS: PCP Family Medicine; Visit Provider Internal Medicine Hematology & Oncology
DX: Z08 Encounter for follow-up examination after completed treatment for malignant neoplasm (principal); Z85.118 Personal history of other malignant neoplasm of bronchus and lung; J44.9 Chronic obstructive pulmonary disease, unspecified; M1A.9XX0 Chronic gout, unspecified, without tophus (tophi); I10 Essential (primary) hypertension; Z92.21 Personal history of antineoplastic chemotherapy; Z92.3 Personal history of irradiation
CPT/HCPCS: 36591; 80053; 85025; 99214

== ENCOUNTER → 2021-06-18 10:30 | Outpatient (BNVA) | payer OTHER, SELFPAY | PROVIDERS: PCP Family Medicine; Visit Provider Internal Medicine Pulmonary Disease | DX: J43.9 Emphysema, unspecified (principal); C34.92 Malignant neoplasm of unspecified part of left bronchus or lung; Z87.891 Personal history of nicotine dependence | CPT/HCPCS: 99214 ==

== ENCOUNTER 2021-10-07 12:00 | Oncology outpatient (recurring) (ONCR) | payer OTHER, SELFPAY ==
[2021-10-04] MEDS: iohexol 300 mg/mL 100 mL Btl IV (12:54)
[2021-10-04 13:37] LABS: Blood Urea Nitrogen 15 mg/dL (8-23)
--- NOTE | 2021-10-04 14:00 | CT_ITS ---
WS: [id number] CT CHEST WITH INTRAVENOUS CONTRAST HISTORY: History of lung cancer. TECHNIQUE: Contiguous 5 mm axial imaging performed on the thorax. Coronal and sagittal reformats are submitted. All CT scans at [facility] use at least one of these dose optimization techniques: automated exposure control; mA and/or kV adjustment per patient size (includes targeted exams where dose is matched to clinical indication); or iterative reconstruction. CONTRAST: Omnipaque 300; 50 mL IV. DLP: 685.26 mGy.cm COMPARISON: 03/04/2021, 10/27/2020 Lungs and central airway: Fibrosis and volume loss and postradiation changes in the lung the medial L EFT upper lobe and mediastinum are stable. There is mild bronchiectasis with volume loss extending fr om the LEFT hilar region superiorly and medially along the mediastinum. Pulmonary hyperexpansion from emphysema. Enlarging spiculated nodule along the RIGHT major fissure over the past several examinati ons. This nodule measures 2.0 x 1.5 cm. Suspicious for recurrent neoplastic disease until proven othe r womack. Pleura: No pleural effusions. Heart and pericardium: Normal size heart with no pericardial effusion. Mediastinum and nicholas: No new lymph nodes. Vessels: Moderate atherosclerosis aorta. No aneurysm. Normal size pulmonary artery. Chest wall and lower neck: Right-sided Mediport. Upper abdomen: Small hiatal hernia. No change in appearance of the liver since 10/27/2020. Prior neo cystectomy. Portal vein is negative. Cortical thinning superior lateral pole RIGHT kidney. Osseous structures: Moderate spondylitic changes thoracic spine. No osteoblastic or osteolytic bone d isease. CT/CT chest w con* [id number] IMPRESSION: 1. Stable post radiation fibrosis and volume loss LEFT upper lobe. 2. Spiculated mass along the RIGHT major fissure measures 2.0 x 1.5 cm. Suspic ious for recurrent neoplastic disease until proven otherwise. Recommend follow- up PET/CT imaging. 3. No mediastinal or hilar adenopathy. 4. Small hiatal hernia. 5. Prior cholecystectomy.
[2021-10-07 12:27] LABS: Basophils # 0.1 10^3/uL (0.0-0.1); Basophils % 0.6 %; Eosinophils # 0.2 10^3/uL (0.0-0.8); Eosinophils % 2.1 %; Hematocrit 46.3 % (42.0-52.0); Hemoglobin 15.6 g/dL (11.7-16.6); Lymphocytes # 1.1 10^3/uL (0.8-4.8); Lymphocytes % 13.6 %; Mean Corpuscular HGB Conc 33.7 g/dL (30.0-36.0); Mean Corpuscular Hemoglobin 32.9 pg (28.0-34.0); Mean Corpuscular Volume 97.7 fl (80-94); Mean Platelet Volume 10.6 fL (7.4-10.4); Monocytes % 12.2 %; Neutrophils # 5.67 10^3/uL (1.8-7.7); Neutrophils % 71.2 %; Nucleated Red Blood Cells % 0 %; Platelet Count 155 10^3/cmm (130-400); Red Blood Count 4.74 10^6/uL (4.1-5.3); Red Cell Distribution Width 13.4 % (12.1-15.1)
[2021-10-07 12:55] LABS: Alanine Aminotransferase 25 U/L (0-41); Albumin Level 4.5 g/dL (3.5-5.2); Alkaline Phosphatase 103 IU/L (40-130); Anion Gap 13.1 (5-19); Aspartate Amino Transferase 27 U/L (0-40); Blood Urea Nitrogen 13 mg/dL (8-23); Calcium 9.6 mg/dL (8.5-10.5); Carbon Dioxide 28 mmol/L (22-29); Chloride 105 mmol/L (98-107); Globulin 2.4 g/dL (1.3-4.6); Glucose 97 mg/dL (65-115); Osmolality Calculated 294 mOsm/kg (285-295); Potassium 4.1 mmol/L (3.5-5.1); Sodium 142 mmol/L (136-145); Total Bilirubin 0.6 mg/dL (0.15-1.2); Total Protein 6.9 g/dL (6.6-8.7)
== END 2021-10-14 23:59 | disposition home or self-care (01) ==
PROVIDERS: PCP Family Medicine; Visit Provider Internal Medicine Hematology & Oncology
DX: C34.12 Malignant neoplasm of upper lobe, left bronchus or lung (principal); J44.9 Chronic obstructive pulmonary disease, unspecified; Z87.891 Personal history of nicotine dependence; G30.9 Alzheimer's disease, unspecified; F02.80 Dementia in other diseases classified elsewhere, unspecified severity, without behavioral disturbance, psychotic disturbance, mood disturbance, and anxiety; R91.8 Other nonspecific abnormal finding of lung field
CPT/HCPCS: 36591; 71260; 80053; 82565; 84520; 85025; 99214

== ENCOUNTER 2021-11-23 09:21 | Day surgery (SDC) | payer OTHER, SELFPAY ==
[2021-11-19 13:50] VITALS: BMI 22.0
[2021-11-23] VITALS (19 sets, daily range): BP systolic 103–154; BP diastolic 61–111; PULSE 77–107; RESP 16–24; TEMP 36.2–36.6; O2SAT 80–98
--- NOTE | 2021-11-23 | CT_ITS ---
Guided Bronchoscopy Planning CT images; total exam DLP: 394.13 mGy-cm MTDD
--- NOTE | 2021-11-23 10:36 | P.ANESASSM_ITS ---
Pre-Anesthetic Assessment Height/Weight: Height 1.73 m Weight 65.771 kg Temp Pulse Resp BP Pulse Ox O2 Del Method 97.2 F L 77 18 121/89 92 11/23/21 10:00 11/23/21 10:00 11/23/21 10:00 11/23/21 10:00 11/23/21 10:00 11/23/21 10:00 Preop Diagnosis: Lung cancer Operation Date: 11/23/21 11:25 Proposed Procedures p Veran/pet positive lung nodule/ R91.1/[id number](Not Applicable) - Aleksandar Hall DatarMD Familial anesthetic complications: None Was Beta Kamini taken within 24 hours: N/A Was Clonidine taken within 24 hours: N/A Last intake: Intake Last Liquid Date 11/22/21 Last Liquid Time 22:00 Last Solid Date 11/22/21 Last Solid Time 19:30 Social Tobacco (Past smoker) and No alcohol Exam alert, oriented x 3 and regular rate & rhythm Diminished Bilaterally Airway Submandibular: within normal limits Cervical ROM: within normal limits Mallampati: Class II Dentition: false Pulmonary Chronic Obstructive Pulmonary Disease and Shortness of Breath Reports wearing 2.5L home O2 CV/HEM Coronary Artery Disease, Hypertension and Myocardial Infarction Carotid Artery Stenosis (Endarterectomy October 2018) None reported Hepatic None reported GI None reported Metabolic None reported Musc/skel None reported Neuropsych Cerebrovascular Accident, Dementia and None reported PT could not recall details of stroke Anesthetic Plan ASA status: 3 Anesthesia: Anesthesia Evaluation and General Risk of > 500 ml blood loss (7ml/kg in children): No Medications/Allergies Home Medications Medication Instructions Recorded Confirmed Last Taken Type fluticasone propionate 50 1 spray intranasal Q12H 05/01/19 11/19/21 11/22/21 History mcg/actuation nasal spray,suspension amlodipine 5 mg tablet (Norvasc) 5 mg PO DAILY 06/05/19 11/19/21 11/22/21 History donepezil 5 mg tablet 5 mg PO DAILY 06/05/19 11/19/21 11/22/21 History pantoprazole 40 mg tablet,delayed 40 mg PO DAILY 06/05/19 11/19/21 11/22/21 History release (Protonix) simvastatin 40 mg tablet (Zocor) 40 mg PO DAILY 06/05/19 11/19/2111/22/22 History acyclovir 800 mg tablet 800 mg PO .5xd PRN fever blister 03/31/20 11/23/21 11/22/21 History aspirin 81 mg tablet,delayed 81 mg PO DAILY 03/31/20 11/19/21 11/22/21 History release loratadine 10 mg tablet (Claritin) 10 mg PO DAILY 03/31/20 11/19/21 11/22/21 History albuterol sulfate 90 mcg/actuation 2 puff inhalation Q6H PRN copd 11/09/20 11/19/21 11/22/21 Rx aerosol inhaler (Ventolin HFA) #8.5 grams umeclidinium 62.5 mcg-vilanterol 1 inh inhalation DAILY #60 ea 08/11/21 11/19/21 11/22/21 Rx 25 mcg/actuation powdr for inhalation (Anoro Ellipta) Allergies Allergy/AdvReac Type Severity Reaction Status Date / Time No Known Allergies Allergy Verified 11/23/21 10:08 [facility] Anesthesia Medical History Carotid artery stenosis COPD (chronic obstructive pulmonary disease) Stroke Family History Grandmother Diabetes Mother Hyperlipidemia Hypertension Other CAD (coronary artery disease) Cancer Lung disease Stroke Denies family history of Clotting disorder Dementia Psychiatric illness Chronic kidney disease (CKD) Suicide Anesthesia complication Bleeding disorder Social History Smoking and tobacco status: former smoker Quit status (tobacco): has quit using tobacco Year quit tobacco: 1983 - PD x 40 Years Second hand smoke exposure: No Smoking risk assessment/counseling performed?: Yes Alcohol intake: former Year of sobriety/quit date alcohol: 1980 Lives independently: Yes Household members: spouse Housing: House Marital status: service: Yes Current occupational status: retired Pets and animals: No History of recent travel: No Current gender identity: Male Data Anesthesia Cardiac Studies: No Data to Display
[2021-11-23] MEDS: sodium chloride 0.9% 1,000 ML 30 ML IV ×2 (11:08→14:10)
--- NOTE | 2021-11-23 11:17 | ANES.PREANE2 ---
Pre-Anesthetic Assessment Height/Weight: Height 1.73 m Weight 65.771 kg Temp Pulse Resp BP Pulse Ox O2 Del Method 97.2 F L 77 18 121/89 92 11/23/21 10:00 11/23/21 10:00 11/23/21 10:00 11/23/21 10:00 11/23/21 10:00 11/23/21 10:00 Preop Diagnosis: Lung cancer Operation Date: 11/23/21 11:25 Proposed Procedures p Veran/pet positive lung nodule/ R91.1/48354/[id number](Not Applicable) - Aleksandar Hall DatarMD Familial anesthetic complications: none Was Beta Kamini taken within 24 hours: N/A Was Clonidine taken within 24 hours: N/A Last intake: Intake Last Liquid Date 11/22/21 Last Liquid Time 22:00 Last Solid Date 11/22/21 Last Solid Time 19:30 Social No alcohol and No tobacco Exam alert, oriented x 3, clear to auscultation bilaterally and regular rate & rhythm Airway Submandibular: within normal limits Cervical ROM: within normal limits Mallampati: Class II Dentition: false Pulmonary Chronic Obstructive Pulmonary Disease and Shortness of Breath (Able to go up flight of stairs ) Nocturnal O2 2-3 LPM Lung cancer CV/HEM Hypertension and Peripheral Vascular Disease (Carotid stenosis ) From evaluation 01/03/20 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 Per Dr. Ann's note 06/05/19 had acute occlusion and infarction with resolved deficit except persistent vocal cord dysfunction None reported Hepatic None reported GI Gastroesophageal Reflux Disease (Well controlled ) Metabolic None reported Musc/skel Osteoarthritis/DJD Neuropsych Cerebrovascular Accident and Dementia (Alzheimer disease ) Anesthetic Plan ASA status: 4 Anesthesia: Anesthesia Evaluation and General Other: History, plan, risk discussed with patient and friend. No other loved ones available We discussed risk and benefits of general anesthesia including PONV, sore throat (sometimes severe), corneal abrasion, positioning and peripheral nerve injuries, life threatening allergic reaction, post operative ICU admission requiring prolonged intubation, aspiration, stroke, heart attack, , and rare incidences of recall. Patient consents to proceed with general anesthesia. Risk of > 500 ml blood loss (7ml/kg in children): No Medications/Allergies Home Medications Medication Instructions Recorded Confirmed Last Taken Type fluticasone propionate 50 1 spray intranasal Q12H 05/01/19 11/19/21 11/22/21 History mcg/actuation nasal spray,suspension amlodipine 5 mg tablet (Norvasc) 5 mg PO DAILY 06/05/19 11/19/21 11/22/21 History donepezil 5 mg tablet 5 mg PO DAILY 06/05/19 11/19/21 11/22/21 History pantoprazole 40 mg tablet,delayed 40 mg PO DAILY 06/05/19 11/19/21 11/22/21 History release (Protonix) simvastatin 40 mg tablet (Zocor) 40 mg PO DAILY 06/05/19 11/19/21 11/22/21 History acyclovir 800 mg tablet 800 mg PO .5xd PRN fever blister 03/31/20 11/23/21 11/22/21 History aspirin 81 mg tablet,delayed 81 mg PO DAILY 03/31/20 11/19/21 11/22/21 History release loratadine 10 mg tablet (Claritin) 10 mg PO DAILY 03/31/20 11/19/21 11/22/21 History albuterol sulfate 90 mcg/actuation 2 puff inhalation Q6H PRN copd 11/09/20 11/19/21 11/22/21 Rx aerosol inhaler (Ventolin HFA) #8.5 grams umeclidinium 62.5 mcg-vilanterol 1 inh inhalation DAILY #60 ea 08/11/21 11/19/21 11/22/21 Rx 25 mcg/actuation powdr for inhalation (Anoro Ellipta) Allergies Allergy/AdvReac Type Severity Reaction Status Date / Time No Known Allergies Allergy Verified 11/23/21 10:08 Current Medications Generic Name Dose Route Start Last Admin Trade Name Freq PRN Reason Stop Dose Admin Sodium Chloride 1,000 mls @ 30 mls/hr 11/23/21 10:30 11/23/21 11:08 Sodium Chloride 0.9% IV 11/24/21 10:29 30 mls/hr .Q24H RIMA Administration PFSH Anesthesia Medical History Carotid artery stenosis COPD (chronic obstructive pulmonary disease) Stroke Family History Grandmother Diabetes Mother Hyperlipidemia Hypertension Other CAD (coronary artery disease) Cancer Lung disease Stroke Denies family history of Clotting disorder Dementia Psychiatric illness Chronic kidney disease (CKD) Suicide Anesthesia complication Bleeding disorder Social History Smoking and tobacco status: former smoker Quit status (tobacco): has quit using tobacco Year quit tobacco: 1983 - 2PPD x 40 Years Second hand smoke exposure: No Smoking risk assessment/counseling performed?: Yes Alcohol intake: former Year of sobriety/quit date alcohol: 1980 Lives independently: Yes Household members: spouse Housing: House Marital status: service: Yes Current occupational status: retired Pets and animals: No History of recent travel: No Current gender identity: Male Data Anesthesia Cardiac Studies: No Data to Display
--- NOTE | 2021-11-23 11:36 | W.PM.OPSUD ---
Surgery/Procedure H&P Update DATE OF PROCEDURE: November 23, 2021 DATE H&P PERFORMED: 11/23/21 CHANGES TO PREVIOUS DOCUMENTATION: 81-year-old Mr. 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 Follow-up CT chest 10/27/2020 and 03/04/2021 did not show any evidence of recurrence or progressive disease/no mediastinal hilar lymphadenopathy. Clinically was doing fine with no new signs suggestive of recurrence of disease. However in subsequent surveillance CT scan performed 10/04/2021 showed spiculated mass along the right major fissure measuring 2 x 1.5 cm suspicious for recurrent neoplastic disease. The following PET/CT on 11/13/2021 confirmed spiculated right major fissure nodule measuring 2.5 x 1.8 cm with SUV 7 no other findings of metastatic disease. Patient's oncologist Dr. Gant conveyed results of PET/CT and we decided to obtain navigational bronchoscopy to obtain biopsies of right upper lobe lesion. Today patient is scheduled for navigational bronchoscopy guided transbronchial biopsies of right upper lobe lesion. In preoperative room patient is accompanied by his friend, he denied any active complaints. He is aware that he is PET CT is positive for right upper lobe lesion and verbalized understanding of complications like pneumothorax/bleeding post biopsies which may require chest tube placement. He agreed to proceed for the procedure. General: alert, NAD HEENT: conj clear, EOMI, PERRL, mmm, Neck: supple, no meningismus Heme: no cervical LAP Pulmonary: Clear for auscultation bilaterally Cardiovascular: rrr, nl s1s2, no mrg Abdomen: soft, nt, nd, no r/g, bs+ Extremities: pulses +, no edema, no c/c : no CVA tenderness MSK: no back or neck pain Neurologic: grossly intact PREOP DIAGNOSIS: Lung cancer PRIMARY INDICATION FOR PROCEDURE: Suspected malignancy PLANNED PROCEDURE: Operation Date: 11/23/21 11:25 Proposed Procedures Flexible bronchoscopy for airway inspection followed by navigational bronchoscopy using Veran to obtain transbronchial biopsies from right upper lobe PET positive nodule R91.1/[id number](Not Applicable) - Aleksandar Philippe MD under general anesthesia
[2021-11-23] MEDS: lidocaine 1% INJ 20 mL XX (14:30)
[2021-11-23] MEDS: EPINEPHrine 1 mg/mL INJ XX (14:31)
--- NOTE | 2021-11-23 14:34 | XRR_ITS ---
PROCEDURE INFORMATION: Exam: XR Chest Exam date and time: 11/23/2021 2:40 PM Age: 81 years old Clinical indication: Device placement; Other: Post bronchoscopy; Prior surgery; Additional info: Post bronchoscopy, R upper lobe nodule biopsy TECHNIQUE: Imaging protocol: Radiologic exam of the chest. Views: 1 view. COMPARISON: CT chest w con* [id number] 10/04/2021 1:39 PM FINDINGS: Tubes, catheters and devices: Right-sided Port-A-Cath. Lungs: Left hilar airspace opacity again seen similar to prior exam, may again reflect radiation fibrosis. Right mid lung field nodule seen on prior chest CT is not well appreciated on this exam. Right mid lung field subsegmental atelectasis versus infiltrate is present. Pleural spaces: Unremarkable. No pleural effusion. No pneumothorax. Heart/Mediastinum: Mild cardiomegaly. Bones/joints: Unremarkable. XR/XR chest 1V portable [id number] IMPRESSION: 1. Left hilar airspace opacity again seen similar to prior exam, may again reflect radiation fibrosis. 2. Right mid lung field nodule seen on prior chest CT is not well appreciated on this exam. Right mid lung field subsegmental atelectasis versus infiltrate is present. 3. Right-sided Port-A-Cath. 4. Mild cardiomegaly.
--- NOTE | 2021-11-23 14:53 | PM.OP ---
Operative Report Date of procedure: November 23, 2021 Pre-op diagnosis: Preop Diagnosis Lung cancer Post-op diagnosis: Malignancy Post-op findings: Procedure done: -CPT code 50844: Bronchoscope for airway inspection -CPT code 17389: Bronchoscope with BAL from right upper lobe -CPT Code 62978: Navigational Bronchoscopy -CPT code 02282: Bronchoscope with transbronchial lung biopsy of right upper lobe -CPT Code 61426: Bronchoscopy w/Transbronchial needle aspiration biopsy(s) of right upper lobe -Control of bleeding Surgeon: Aleksandar Philippe MD Brief History: 81-year-old Mr. 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 Follow-up CT chest 10/27/2020 and 03/04/2021 did not show any evidence of recurrence or progressive disease/no mediastinal hilar lymphadenopathy.? Clinically was doing fine with no new signs suggestive of recurrence of disease. However in subsequent surveillance CT scan performed 10/04/2021 showed spiculated mass along the right major fissure measuring 2 x 1.5 cm suspicious for recurrent neoplastic disease.? The following PET/CT on 11/13/2021 confirmed spiculated right major fissure nodule measuring 2.5 x 1.8 cm with SUV 7 no other findings of metastatic disease. Patient's oncologist Dr. Gant conveyed results of PET/CT and we decided to obtain navigational bronchoscopy to obtain biopsies of right upper lobe lesion. Today patient is scheduled for navigational bronchoscopy guided transbronchial biopsies of right upper lobe lesion.? In preoperative room patient is accompanied by his friend, he denied any active complaints.? He is aware that he is PET CT is positive for right upper lobe lesion and verbalized understanding of complications like pneumothorax/bleeding post biopsies which may require chest tube placement.? He agreed to proceed for the procedure. Procedure: Procedure: -CPT code 99059: Bronchoscope for airway inspection -CPT code 58982: Bronchoscope with BAL from right upper lobe -CPT Code 28818: Navigational Bronchoscopy -CPT code 66152: Bronchoscope with transbronchial lung biopsy of right upper lobe -CPT Code 74974: Bronchoscopy w/Transbronchial needle aspiration biopsy(s) of right upper lobe -Control of bleeding Indication: PET active new spiculated mass along the right major fissure measuring 2 x 1.5 cm suspicious for recurrent neoplastic disease Anesthesia: General anesthesia. Local anesthesia: The leticia in the right and left mainstem bronchi were anesthetized with 1% lidocaine, 3 mL. Description of the procedure: The procedure was explained to the patient and the consent was obtained.? The patient was brought to the OR.? The patient underwent endotracheal intubation for general anesthesia.? Following induction of general anesthesia, the bronchoscope was advanced through the ET tube.? The lower trachea mucosa appeared normal, no endotracheal lesion was seen.? The leticia was sharp.? The leticia, the right and left mainstem bronchi are anesthetized with 1% lidocaine.? In a systematic manner bilateral bronchial tree was then examined.? The bronchoscope was advanced into the left mainstem bronchus.? The mucosa appeared normal with no endobronchial lesions.? The left upper lobe, lingula and left lower lobe bronchi were examined up to the third subsegmental level and no abnormalities were identified.? Mucosa appeared normal with no endobronchial lesion, active bleeding or mucous plug.? There were some clear secretions in lower lobe-which were suctioned right away.? The bronchoscope was then introduced into the right mainstem bronchus.? The right upper lobe, right middle lobe and right lower lobe bronchi were examined up to the third subsegmental level and no abnormalities were identified.? The mucosa appeared normal with no endobronchial lesions, active bleeding or mucous plugs. Using [employer] navigational system-obtained 1 touch prep for ILA and preliminary pathology diagnosis was suspicious for malignancy. Obtain 5 more biopsies with forceps and 2 specimens with aspiration needle for cytology from right upper lobe lesion and placed into different cups with formalin and sent to pathology. Bronchoalveolar lavage was performed from the posterior segment of the right upper lobe.? 60 mL of saline was instilled, fluid return was 20 mL.? The fluid was mixed with blood. There was mild bleeding from the site 5 cc cold saline was instilled and 10 cc saline mixed with epinephrine was instilled. After making sure there is no overt bleeding the bronchoscope was retracted and procedure terminated. Samples: 1.? Bronchoalveolar lavage specimen was sent for cell count and differential, gram stain and culture, cytology 2.?5 the transbronchial forcep biopsies from right upper lobe lesion are sent for histopathology in formalin 3.? 2 specimens of transbronchial fine-needle aspiration cytology of right upper lobe lesion sent for cytology in formalin Complications: There was mild oozing from right upper lobe posterior subsegment which was controlled with cold saline and epinephrine instillation. Otherwise there were no immediate complications.? The patient was extubated and brought to the PACU in stable condition. Postprocedure chest x-ray:? No evidence of pneumothorax Disposition: Patient can be discharged home in stable condition. Instructions given to patient friend who accompanied him. Try to contact patient's next of kin his as well as son on phone number but both of them did not knot picker cloth. I will set up clinic follow-up in 10 days to follow-up on biopsy results.
[2021-11-23] MEDS: ipratropium-albuterol 3 mL Neb INHALATION (15:19)
--- NOTE | 2021-11-23 15:53 | XR_ITS ---
WS: [id number] PORTABLE CHEST HISTORY: POST BRONCHOSCOPY DYSPNEA COMPARISON: 11/23/2021 at 2:45 PM and 3:59 PM Hyperinflated lungs. Patient is status post bronchoscopy. Since the study obtained at 2:45 PM there has been a slight incr ease in amount of interstitial thickening in the central lungs and surrounding the LEFT hilum. Increa sed consolidation at the LEFT hilum. No pleural effusion or pneumothorax. Cardiac size: Mildly enlarged cardiac silhouette. Mediastinum/Aorta: Mild atherosclerosis aorta. Increased spiculation soft tissue at the LEFT hilum. No osseous abnormality seen. XR/XR chest 1V portable [id number] IMPRESSION: 1. Short interval increase in interstitial thickening in the central lungs. Mo st typical appearance for mild aspiration pneumonia. Progressed since the study obtained earlier the same day. 2. No lobar collapse or pneumothorax. Discussed with Dr. Bradshaw .
--- NOTE | 2021-11-23 16:07 | PM.PACU ---
PACU note Narrative: Called to evaluate in recovery. Post op on RA air sats in 80s. O2 on on my arrival. Albuterol administered prior to my arrival. Coughing, b/l lungs sounds course, no crackles, wheezes. Some labored breathin. CXR ordered. Discussed with radiologist. Increased insterstitial markings centrally b/l. No hx of CHF. Appears furosemide naive. Received 1000 ml fluid intraop, about 600 ml post op. IV fluids stopped. Duoneb, incentive spirometer, 10 mg furosemide ordered. No washing in procedure, no concerns for possible aspiration per CODING QUALITY COORDINATOR. Case discussed with Doctor Datar. Doctor Datar plans to evaluated.
[2021-11-23] MEDS: FUROsemide 10 mg/mL SDV 2mL IVP (16:20)
--- NOTE | 2021-11-23 16:53 | ANE.PACU2 ---
Inpatient post-anesthesia follow up: Airway intact: Yes Vital signs: Temperature 97.8 F Pulse Rate 104 Respiratory Rate 22 Blood Pressure 130/74 Pulse Oximetry 96 Oxygen Delivery Me thod Nasal Cannula Oxygen Flow Rate 3 Fraction of Inspir ed Oxygen Hydration adequate: Yes Nausea and vomiting: No Pain level: 1 Mental status: Baseline Additional Comments: Case discussed with Doctor Datar who then evaluated patient at bedside and planned discharge for patient on home O2 .
[2021-11-23 16:56] LABS: Apprearance, Bronch Wash Cloudy (CLEAR); Color, Bronc Wash Red; Total Cells Counted Bronch 200
[2021-11-23 16:59] LABS: PATH Referral Yes
--- NOTE | 2021-11-23 17:22 | SUR.PHASEII ---
1715- Patient given discharge instructions with friend there and sent home with his O2 on 3L. He told Dr Philippe that he was doing fine as we wheeled him out.
[2021-11-23 18:17] LABS: Cyto Order Verification Order Verified
[2021-11-23 18:59] LABS: Cyto Order Verification Order Verified
[2021-12-01 11:48] LABS: PD-L1 (Clone 22C3) by IHC BBPL See Report
== END 2021-11-23 17:15 | disposition home or self-care (01) ==
PROVIDERS: PCP Family Medicine; Visit Provider Internal Medicine Pulmonary Disease
PROC: 0BJ08ZZ Inspection of Tracheobronchial Tree, Via Natural or Artificial Opening Endoscopic (ICD-10-PCS; CPT 31622; principal; 2021-11-23 11:15)
DX: C34.90 Malignant neoplasm of unspecified part of unspecified bronchus or lung (principal); J44.9 Chronic obstructive pulmonary disease, unspecified; Z99.81 Dependence on supplemental oxygen; I10 Essential (primary) hypertension; K21.9 Gastro-esophageal reflux disease without esophagitis; M19.90 Unspecified osteoarthritis, unspecified site; Z86.73 Personal history of transient ischemic attack (TIA), and cerebral infarction without residual deficits; Z87.891 Personal history of nicotine dependence
CPT/HCPCS: 31624; 31627; 31628; 31629; 71045; 77011; 80503; 87070; 87205; 88108; 88305; 88341; 88342; 89050; 94640; J0171; J0330; J1100; J1940; J2405; J2704; J2710; J3010; J3490; J7030

== ENCOUNTER 2021-12-15 09:30 | Oncology outpatient (recurring) (ONCR) | payer OTHER, SELFPAY ==
[2021-12-15 10:04] LABS: Basophils % 0.5 %; Eosinophils # 0.2 10^3/uL (0.0-0.8); Eosinophils % 3.5 %; Hematocrit 42.2 % (42.0-52.0); Hemoglobin 13.8 g/dL (11.7-16.6); Lymphocytes # 0.6 10^3/uL (0.8-4.8); Lymphocytes % 11.2 %; Mean Corpuscular HGB Conc 32.7 g/dL (30.0-36.0); Mean Corpuscular Hemoglobin 32.5 pg (28.0-34.0); Mean Corpuscular Volume 99.5 fl (80-94); Mean Platelet Volume 10.2 fL (7.4-10.4); Monocytes # 0.6 10^3/uL (0.2-0.9); Monocytes % 11.3 %; Neutrophils # 4.01 10^3/uL (1.8-7.7); Neutrophils % 73.3 %; Nucleated Red Blood Cells % 0 %; Platelet Count 144 10^3/cmm (130-400); Red Blood Count 4.24 10^6/uL (4.1-5.3); Red Cell Distribution Width 13.7 % (12.1-15.1); White Blood Count 5.5 10^3/uL (4.0-10.0)
[2021-12-15 10:24] LABS: Alanine Aminotransferase 25 U/L (0-41); Albumin Level 4.3 g/dL (3.5-5.2); Alkaline Phosphatase 110 U/L (40-130); Anion Gap 12.5 (5-19); Aspartate Amino Transferase 30 U/L (0-40); Blood Urea Nitrogen 12 mg/dL (8-23); Calcium 9.2 mg/dL (8.5-10.5); Carbon Dioxide 27 mmol/L (22-29); Chloride 104 mmol/L (98-107); Globulin 2.2 g/dL (1.3-4.6); Glucose 103 mg/dL (65-115); Osmolality Calculated 288 mOsm/kg (285-295); Potassium 4.5 mmol/L (3.5-5.1); Sodium 139 mmol/L (136-145); Total Bilirubin 0.6 mg/dL (0.15-1.2); Total Protein 6.5 g/dL (6.6-8.7)
--- NOTE | 2021-12-15 14:16 | ONCRAD EPV_ITS ---
Radiation Oncology Established Patient Visit Patient: Dong Aly [id number] : 1940 Age: 81 Sex: Male Dictated by: Dr. Charles Currie Date of Service: 12/15/2021 Referring Physician(s) : Harlan Gant M.D. Diagnosis: C34.12 - Malignant neoplasm of upper lobe, left bronchus or lung, Diagnosed 10/18/2019 (Active) now with a biopsy-proven cancer in the right major fissure that by immunohistochemical staining is a metastasis. Non-small cell lung cancer Mr. Umana is an 80-year-old gentleman with a history of left upper lobe lung nodule. It was first noticed in October 2018 during work-up for left carotid artery endarterectomy. He recently started having right upper chest pain for which he underwent a CT scan of chest on December 03, 2019. The CT showed left hilar mass size 3 x 3 x 2 cm. He was referred to pulmonology and underwent CT PET scan on December 21, 2019. The PET/CT reported a 2.5 x 3.2 cm left upper lobe lung mass with SUV of 8.1 representing progression since a previous PET scan (from 10/27/2018-we do not have this report available) and also there was a new adjacent infiltrate most likely obstructive atelectasis. Suspicious upper left hilar node which measures roughly 2.2 centimeter with SUV of 6.6 and a new, questionable activity is present in the left internal mammary lymph node. Mr Umana underwent bronchoscopy on January 03, 2020 which showed left main stem bronchus appears to be narrowed due to extrinsic compression but no endobronchial lesion. A fine-needle aspiration was performed from station 7 and 10 left. 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 Mr Umana has history of smoking about 2 packs a day for 25 years started at age 14 quit when he was 38 years old. Now he has underlying COPD. Mr Umana reported that he has lost about 30 pounds in over 1 month because of poor appetite. 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 Therefore the second best option would be combined chemoradiation with weekly carboplatin/Taxol concurrent with radiation therapy. He began his first week of chemotherapy on 02/03/2020. Due to steroid induced insomnia, weekly Taxol was switched to weekly Abraxane on February 19, 2020 along with weekly carboplatin concurrent with radiation therapy. He has tolerated this well. Growth factor support with Neupogen for 3 doses was added after cycle 3. His day 7 ANC was 1300. His last dose of Neupogen for cycle 3 was on February 28, 2020.And last weekly chemotherapy with carboplatin/Abraxane was given on March 11, 2020 and patient completed concurrent radiation therapy on March 17, 2020, As per recommendations, patient was supposed to start maintenance immunotherapy with durvalumab but as per patient and his on April 13, 2020, patient rolled over out of the bed and had a fall which caused right hip fracture for which he underwent internal fixation in [facility], patient was also diagnosed with Covid infection, after that [facility] was [facility] and recovery, because of all this and associated with generalized weakness and fatigue patient did not make his return appointment until today. Follow-up CT scan of chest done on July 16, [address] Philippe, turbinated bone grinder showed significant interval improvement left hilar and suprahilar mass with small amount of residual soft tissue thickening measuring 1.7 x 1.2 cm. Soft tissue thickening along the left hilum. Findings consistent with interval response to therapy. No mediastinal or hilar lymphadenopathy Follow-up CT scan of chest done on March 04, 2021 showed previously described radiation fibrosis in the left upper lobe along the mediastinum is unchanged. No evidence of recurrent and progressive disease. Tiny left pleural effusion in the mid left lung has nearly resolved. No mediastinal or hilar lymphadenopathy. Came for follow-up, denies any specific complaints, no fever chills, no nausea or vomiting, no diarrhea constipation, appetite is good, patient is gaining weight, patient denies any new bony pain denies any jaundice denies any headaches blurred vision double vision, denies any weight loss. Denies any shortness of breath or wheezing Radiotherapy to Date: Course: LT Lung [id number], Treatment Site: LT Lung 60Gy, Ref. ID: [id number], Energy: 15X/6X, Dose/Fx (cGy): 200, #Fx: 30 / 30, Dose Correction (cGy): 0, Total Dose (cGy): 6,000, Start Date: 02/03/2020, End Date: 03/17/2020, Elapsed Days: 43 Current History: Mr. Carrero is an 81-year-old man whose history is noted above through February 2021. He had a follow-up CT of the chest 10/04/2021. He had no evidence of recurrent disease in the left lung or mediastinum. A spiculated mass had developed along the right major fissure measuring 2.1 x 1.5 cm. A PET scan was performed 11/13/2021. The study confirmed a spiculated right major fissure nodule measuring 2.1 x 1.8 cm with an SUV of 7, strongly suspicious for a new primary or metastatic disease. No other active disease noted. On 11/23/2021 he underwent navigational bronchoscopy. No endobronchial lesions were noted but with navigation the turbinated bone grinder was able to biopsy the suspicious mass in the right major fissure. 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 The immunohistochemical staining pattern matches the case from 2019. In view of the fact that this is an isolated small lesion, Mr. Umana is referred for SBRT. Current Medications: Acyclovir, albuterol Sulfate, aspirin 81, claritin, donepezil HCl, flonase Allergy Relief, ipratropium-Albuterol, norvasc, pantoprazole Sodium, predniSONE, prochlorperazine Maleate, umeclidinium-Vilanterol, zocor. Allergies: No Known Allergies Current Complaints / Review of Systems: . Vital Signs: Performed on 12/15/2021 10:02 AM BMI - 21.713 kg/m2, Height - 68 in, Weight - 142.8 lbs, Temperature - 97.1 f, Pulse - 77 /min, Respiration - 16 /min, O2 Sat - 94 % (low), Pain - 0, Fatigue - 0 and BP - 110/ 67 mm(hg). Physical Exam: General: Alert and oriented x 3. No acute distress. HEENT: Normocephalic, atraumatic. Extraocular Movements Intact: NECK: Supple without supraclavicular or jugular lymphadenopathy. LUNGS: Clear to auscultation bilaterally without rales, rhonchi or wheeze. HEART: Regular rate and rhythm, normal S1 and S2 without murmur, gallop or rub. MUSCULOSKELETAL: No tenderness or percussion pain over the axial skeleton, scapulae or pelvis. ABDOMEN: Soft, nontender, nondistended without masses or organomegaly. Bowell sounds are present. EXTREMITIES: No peripheral edema is identified. Limited motor and sensory examination are grossly intact and symmetric bilaterally. NEUROLOGIC: Cranial nerves II ???XII are grossly intact. Normal sensation, strength 5/5 in all extremities, normal gait, no ataxia. Performance Status: ECOG 2 Lab: None pending. Pathology: Primary, c34.12 - malignant neoplasm of upper lobe, left bronchus or lung, Diagnosed 10/18/2019 (active). Imaging: See HPI Impression: Mr. Umana is an 81-year-old man with a history of squamous cell carcinoma of the left lung treated with combined chemotherapy and radiation in 2019. He has no evidence of active disease in that area. 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 Immunohistochemical staining suggests that this is a metastatic disease rather than a new primary. In view of the patient's reasonably good performance status and no evidence of other metastatic disease, he is a candidate for aggressive treatment. The lesion is located well away from critical structures and he is an excellent candidate for SBRT. I discussed that with him. I told him that SBRT is usually tolerated well but that there could be some scarring of lung in the area of treatment which could affect his pulmonary status. We discussed that PFTs are needed prior to proceeding with treatment. He is in agreement. We will arrange PFTs and then get the patient in for simulation for SBRT. Signed by: 12/15/2021 2:14:37 PM <<Signature on File>> Time spent with patient: CPT Code: CPT Code:
== END 2021-12-15 23:59 | disposition home or self-care (01) ==
PROVIDERS: PCP Family Medicine; Visit Provider Internal Medicine Hematology & Oncology
DX: C34.12 Malignant neoplasm of upper lobe, left bronchus or lung (principal); Z87.891 Personal history of nicotine dependence; J44.9 Chronic obstructive pulmonary disease, unspecified; R63.4 Abnormal weight loss; Z68.21 Body mass index [BMI] 21.0-21.9, adult; J90 Pleural effusion, not elsewhere classified; G30.9 Alzheimer's disease, unspecified; F02.80 Dementia in other diseases classified elsewhere, unspecified severity, without behavioral disturbance, psychotic disturbance, mood disturbance, and anxiety; Z79.899 Other long term (current) drug therapy; Z92.21 Personal history of antineoplastic chemotherapy; Z92.3 Personal history of irradiation
CPT/HCPCS: 36591; 80053; 85025; 99214; 99215

== ENCOUNTER → 2021-12-23 08:58 | Outpatient (BNVA) | payer OTHER, SELFPAY | PROVIDERS: PCP Family Medicine; Visit Provider Internal Medicine Pulmonary Disease | DX: C34.12 Malignant neoplasm of upper lobe, left bronchus or lung (principal); J43.9 Emphysema, unspecified; Z87.891 Personal history of nicotine dependence; R06.09 Other forms of dyspnea; Z92.3 Personal history of irradiation; Z92.21 Personal history of antineoplastic chemotherapy | CPT/HCPCS: 99214 ==

== ENCOUNTER 2022-01-07 10:47 | Oncology outpatient (recurring) (ONCR) | payer OTHER, SELFPAY ==
--- NOTE | 2021-12-16 11:04 | PFTS_ITS ---
Date of Study:12/16/21 Date of Dictation: MECHANICS: Forced vital capacity (FVC) is reduced. Forced expiratory volume in one second (FEV1) is reduced. FEV1/FVC is reduced. FLOW VOLUME LOOP: Reduced flow at all lung volumes with significant scooping. LUNG VOLUMES: Not measured DIFFUSING CAPACITY FOR CARBON MONOXIDE: Severely reduced. INTERPRETATION: The postbronchodilator spirometry is consistent with severe airflow obstruction. There is no significant postbronchodilator response. A component of restrictive lung disease cannot be ruled out in the absence of lung volume measurement. Gas exchange (DLCO) is severely reduced. MTDD
--- NOTE | 2021-12-30 | CT_ITS ---
Radiation Therapy Planning CT images; total exam DLP: 1105.46 mGy-cm MTDD
--- NOTE | 2022-01-07 11:19 | ONCRAD TMN_ITS ---
SABR Treatment Management Note Patient Name: Jermain Umana Date of : 1940 Date of Service: 01/07/2022 Attending Physician: Iglesia Parra M.D. Jermain Umana is an 79 year-old white male recently diagnosed recurrent lung cancer. The patient initially was diagnosed with a stage IIB (T1cN1) squamous cell carcinoma in December 2019 coinciding with an evaluation for a left carotid artery endarterectomy. He was not a surgical candidate and therefore chemoradiotherapy was recommended. Carboplatin and paclitaxel was administered weekly during the dates of February 03, 2020 through March 11, 2020. Paclitaxel was switched to Abraxane during cycle 3. Thoracic radiotherapy was prescribed to a cumulative dose of 60 Gy in 30 fractions completed March 17, 2020. Surveillance thoracic CT scan ordered on October 04, 2021 identified a 2 cm x 1.5 cm spiculated nodule in the right major fissure without hilar nor mediastinal adenopathy. A PET scan completed on November 13, 2021 confirmed a 2.1 cm x 1.8 cm major fissure nodule with an SUV of 7. There was no metastatic disease. A navigational bronchoscopy with endobronchial lung biopsy of the right upper lobe lung lesion was performed on November 23, 2021 by Aleksandar Philippe M.D. There were no endobronchial lesions described. Biopsies obtained from the nodule diagnosed an adenosquamous carcinoma with 70% squamous differentiation. The immunohistochemical staining pattern and histology matched the pathological case from 2019. The patient has received 54 Gy of a prescribed 54 Johnson (SABR) delivered with an intensity modulated radiotherapy plan utilizing a step and shoot treatment technique. Upon review of systems, he denied any changes in his pulmonary function. On physical examination, the patient weighed 141 lbs. His temperature was 97.4 ???F and the blood pressure was 125/85 mmHg. The pulse was 77 bpm and his respiratory rate was 18. Oxygen saturation while breathing ambient air was 93%. There was no erythema within the treatment mckeon. Stereotactic ablative body radiotherapy was completed today. He will return for post-radiotherapy evaluation in 1 month. Signed by: Dr. Iglesia Parra 01/07/2022 11:18:30 AM
--- NOTE | 2022-01-07 11:21 | N.ONRD TS_ITS ---
SABR Treatment Summary Patient Name: Jermain Umana Date of : 1940 Date of Service: 01/07/2022 Attending Physician: Iglesia Parra M.D. Jermain Umana has completed stereotactic ablative body radiotherapy for the management of a recently diagnosed recurrent lung cancer. The patient initially was diagnosed with a stage IIB (T1cN1) squamous cell carcinoma in December 2019 coinciding with an evaluation for a left carotid artery endarterectomy. He was not a surgical candidate and therefore chemoradiotherapy was recommended. Carboplatin and paclitaxel was administered weekly during the dates of February 03, 2020 through March 11, 2020. Paclitaxel was switched to Abraxane during cycle 3. Thoracic radiotherapy was prescribed to a cumulative dose of 60 Gy in 30 fractions completed March 17, 2020. Surveillance thoracic CT scan ordered on October 04, 2021 identified a 2 cm x 1.5 cm spiculated nodule in the right major fissure without hilar nor mediastinal adenopathy. A PET scan completed on November 13, 2021 confirmed a 2.1 cm x 1.8 cm major fissure nodule with an SUV of 7. There was no metastatic disease. A navigational bronchoscopy with endobronchial lung biopsy of the right upper lobe lung lesion was performed on November 23, 2021 by Aleksandar Philippe M.D. There were no endobronchial lesions described. Biopsies obtained from the nodule diagnosed an adenosquamous carcinoma with 70% squamous differentiation. The immunohistochemical staining pattern and histology matched the pathological case from 2019. SABR was delivered between the dates of January 03, 2022 through January 07, 2022. A prescribed dose of 54 Gy was delivered in three fractions encompassing 5 elapsed days. The right lung major fissure lesion was treated utilizing an intensity modulated radiotherapy plan with a step and shoot treatment technique. The plan designed eight gantry angles (160???, 180???, 200???, 220???, 240???, 290???, 310???,and 330???) with a collimator rotation of 0??? in a partial arc design. The field sizes spanned 5.8 cm x 4.5 cm to 6.1 cm x 4.5 cm. The SSDs measured a minimum of 86.8 cm to a maximum of 92.1 cm. The ports delivered 919 MU, 1149 MU, 1032 MU, 1364 MU, 1150 MU, 902 MU, 1360 MU, and 1037 MU corresponding to the gantry angles described. Low energy photons were prescribed. All treatments were performed with the Quinyx AB linear accelerator and an isocentric technique. The dose was calculated by Anisotropic Analytic Algorithm with the plan normalized to deliver 100% of the prescription dose to 95% of the planning target volume. Signed by: Dr. Iglesia Parra 01/07/2022 11:19:52 AM
== END 2022-01-14 23:59 | disposition home or self-care (01) ==
PROVIDERS: PCP Family Medicine; Visit Provider Radiology Radiation Oncology
DX: Z51.0 Encounter for antineoplastic radiation therapy (principal); C34.92 Malignant neoplasm of unspecified part of left bronchus or lung; C34.82 Malignant neoplasm of overlapping sites of left bronchus and lung; Z87.891 Personal history of nicotine dependence
CPT/HCPCS: 77300; 77301; 77334; 77338; 77373; 77470; 94060; 94729; J7611

== ENCOUNTER 2022-03-11 13:20 | Outpatient (CLI) | payer OTHER, SELFPAY ==
--- NOTE | 2022-03-11 14:00 | CT_ITS ---
WS: [id number] CT CHEST WITH INTRAVENOUS CONTRAST HISTORY: Follow up lung cancer. TECHNIQUE: Contiguous 5 mm axial imaging performed on the thorax. Coronal and sagittal reformats are submitted. All CT scans at [facility] use at least one of these dose optimization techniques: automated exposure control; mA and/or kV adjustment per patient size (includes targeted exams where dose is matched to clinical indication); or iterative reconstruction. CONTRAST: Omnipaque 350; 80 mL IV. DLP: 664.41 mGy.cm COMPARISON: 10/04/2021, prior PET CT 11/13/2021 Lungs and central airway: Chronic emphysema. Lungs are hyperinflated. Significant decrease in size of the spiculated mass previously described along the RIGHT major fissure extending into the RIGHT uppe r lobe. Mass now extends over length of 2.5 cm x 0.5 cm in diameter. Extension along the fissure is s lightly more prominent but this is probably due to adjacent fibrosis and may be atelectasis related t o posttreatment. Chronic appearing atelectasis along the medial LEFT upper lobe. Pleura: Normal. No pleural effusion. Heart and pericardium: Normal size heart with no pericardial effusion. Mediastinum and nicholas: 7 mm RIGHT hilar lymph node. No new or enlarging lymph nodes. Vessels: Atherosclerosis aorta. Extensive calcification in the ak chin coronary arteries. Chest wall and lower neck: No soft tissue masses. Upper abdomen: No change in the cortical hypodensity upper pole RIGHT kidney. No adrenal mass. Modera te atherosclerosis suprarenal aorta. Small hiatal hernia. Osseous structures: Osteopenia. Bridging calcifications along the anterior longitudinal ligament. CT/CT chest w con* [id number] IMPRESSION: 1. Significant decrease in size of the spiculated mass along the RIGHT major f issure now measuring 2.5 x 0.5 cm. Compared to 2.0 x 1.5 cm on the prior study. No adenopathy. 2. Chronic unchanged subsegmental atelectasis medial LEFT upper lobe. 3. Chronic emphysema. 4. Prior cholecystectomy and small hiatal hernia.
[2022-03-11] MEDS: iohexol 350 mg/mL 500 mL Btl (per mL) IV (14:25)
== END 2022-03-11 13:21 | disposition home or self-care (01) ==
LOC: RAD 13:22
PROVIDERS: PCP Family Medicine; Visit Provider Internal Medicine Hematology & Oncology
DX: C34.92 Malignant neoplasm of unspecified part of left bronchus or lung (principal); J43.9 Emphysema, unspecified; Z90.49 Acquired absence of other specified parts of digestive tract; K44.9 Diaphragmatic hernia without obstruction or gangrene; J98.11 Atelectasis
CPT/HCPCS: 71260; Q9967

== ENCOUNTER 2022-04-01 07:52 | Oncology outpatient (recurring) (ONCR) | payer OTHER, SELFPAY ==
[2022-04-01 08:21] LABS: Basophils % 0.5 %; Eosinophils # 0.3 10^3/uL (0.0-0.8); Eosinophils % 4.3 %; Hematocrit 45.2 % (42.0-52.0); Hemoglobin 14.7 g/dL (11.7-16.6); Lymphocytes # 0.6 10^3/uL (0.8-4.8); Lymphocytes % 8.1 %; Mean Corpuscular HGB Conc 32.5 g/dL (30.0-36.0); Mean Corpuscular Hemoglobin 32.3 pg (28.0-34.0); Mean Corpuscular Volume 99.3 fl (80-94); Mean Platelet Volume 10.1 fL (7.4-10.4); Monocytes # 0.7 10^3/uL (0.2-0.9); Monocytes % 8.8 %; Neutrophils # 5.77 10^3/uL (1.8-7.7); Nucleated Red Blood Cells % 0 %; Platelet Count 158 10^3/cmm (130-400); Red Blood Count 4.55 10^6/uL (4.1-5.3); Red Cell Distribution Width 13.5 % (12.1-15.1); White Blood Count 7.4 10^3/uL (4.0-10.0)
[2022-04-01 08:44] LABS: Alanine Aminotransferase 20 U/L (0-41); Albumin Level 4.1 g/dL (3.5-5.2); Alkaline Phosphatase 123 U/L (40-130); Anion Gap 11.8 (5-19); Aspartate Amino Transferase 27 U/L (0-40); Blood Urea Nitrogen 13 mg/dL (8-23); Calcium 9.8 mg/dL (8.5-10.5); Carbon Dioxide 28 mmol/L (22-29); Chloride 103 mmol/L (98-107); Globulin 2.8 g/dL (1.3-4.6); Glucose 141 mg/dL (65-115); Osmolality Calculated 290 mOsm/kg (285-295); Potassium 3.8 mmol/L (3.5-5.1); Sodium 139 mmol/L (136-145); Total Bilirubin 0.5 mg/dL (0.15-1.2); Total Protein 6.9 g/dL (6.6-8.7)
== END 2022-04-16 23:59 | disposition home or self-care (01) ==
PROVIDERS: Internal Medicine Hematology & Oncology; PCP Family Medicine; Visit Provider Radiology Radiation Oncology
DX: C34.82 Malignant neoplasm of overlapping sites of left bronchus and lung (principal); Z92.3 Personal history of irradiation; Z92.21 Personal history of antineoplastic chemotherapy; Z87.891 Personal history of nicotine dependence; J43.9 Emphysema, unspecified
CPT/HCPCS: 36591; 80053; 85025; 99214

== ENCOUNTER 2022-06-25 05:53 | Outpatient (CLI) | payer OTHER, SELFPAY ==
--- NOTE | 2022-06-25 09:30 | PETR_ITS ---
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 Then, PET images were obtained. Attenuation corrected images were constructed using the CT scan. Fused images of PET and CT were reviewed. The standardized uptake values (SUV) reported below are maximum values within a region of interest, expressed in gm/ml. Exam includes orbital meatal line to mid-thigh. Radiopharmaceutical: 14.3 mCi F-18 FDG (Fluorodeoxyglucose), IV. Time of imaging post radiopharmaceutical administration: 1 hour Injection site: Right antecubital COMPARISON: CT chest 03/11/2022, PT PET Scan 11/13/2021 10:48 AM FINDINGS: Tubes, catheters and devices: A right subclavian central venous port catheter terminates in the distal SVC. Brain: Visualized brain has normal physiologic uptake. Pharynx: No abnormal uptake. Larynx: Physiologic appearing uptake in the region of the vocal cords. Lungs, pleura and trachea: There is mildly elevated uptake in a region of similar streaky and patchy density which is pleural based along the medial left upper lobe/superior left perihilar region, SUV max 3.7 (previously 3.3) with adjacent non radiotracer avid streaky density extending to the anterior pleural surface. This region is best demonstrated on CT series 3 between images 49 and 53. Mild non radiotracer avid streaky density along the major and minor fissures within the right lung is noted with interval resolution of previously noted radiotracer avid nodule compared to the prior PET-CT and CT chest of 03/11/2022.. Heart: Normal physiologic uptake. Mediastinal space: No abnormal uptake. Liver: No abnormal uptake. Gallbladder and bile ducts: No abnormal uptake. Cholecystectomy clips are present. Pancreas: No abnormal uptake. Spleen: No abnormal uptake. Adrenal glands: No abnormal uptake. Kidneys and ureters: Normal physiologic uptake. Stomach and bowel: There is physiologic appearing uptake in the region of the ileocecal valve.There are scattered colonic diverticula. Reproductive: Mild prominence of the prostate gland without elevated uptake. Vasculature: No abnormal uptake. Lymph nodes: No abnormal uptake. No lymphadenopathy in the head, neck, chest, abdomen, pelvis, and extremities. Bones/joints: There is degenerative appearing uptake at the left C1-C2 facet joint, SUV max 4.6. The bones appear demineralized. An intramedullary lupe in the proximal right femur with a face a rowley screw traversing the right femoral neck is present. No acute fracture is identified. Degenerative spondylosis throughout the spine is noted. Soft tissues: There is benign-appearing muscular uptake adjacent to the lateral scapular body, SUV max 5.1. METRICS: Mediastinal blood pool: SUV max 2.2 PET/PET skulltothi SUBSEQ [id number] IMPRESSION: 1. Mild streaky density along the major minor fissures in the right lung is noted with interval resolution of previously noted radiotracer avid nodule in this region consistent with a response to therapy. 2. There is mild, slightly increased uptake within a region streaky and patchy density in the medial left upper lobe/left superior hilar region (SUV max 3.7, previously 3.3). This may represent post treatment inflammatory changes or scarring. The possibility of neoplastic involvement is less likely but cannot be entirely excluded. 3. Additional nonurgent findings as detailed above.
== END 2022-06-25 05:54 | disposition home or self-care (01) ==
LOC: RAD 06-27 05:53
PROVIDERS: Visit Provider Internal Medicine Hematology & Oncology
DX: C34.92 Malignant neoplasm of unspecified part of left bronchus or lung (principal)
CPT/HCPCS: 78815; A9552

== ENCOUNTER 2022-08-10 10:51 | Oncology outpatient (recurring) (ONCR) | payer OTHER, SELFPAY ==
[2022-08-10 11:47] LABS: Basophils % 0.7 %; Eosinophils # 0.1 10^3/uL (0.0-0.8); Eosinophils % 2.4 %; Hematocrit 44.3 % (42.0-52.0); Hemoglobin 14.6 g/dL (11.7-16.6); Lymphocytes # 0.8 10^3/uL (0.8-4.8); Lymphocytes % 15.1 %; Mean Corpuscular Hemoglobin 32.3 pg (28.0-34.0); Mean Platelet Volume 9.7 fL (7.4-10.4); Monocytes # 0.6 10^3/uL (0.2-0.9); Monocytes % 10.4 %; Neutrophils # 3.82 10^3/uL (1.8-7.7); Neutrophils % 71.2 %; Nucleated Red Blood Cells % 0 %; Platelet Count 166 10^3/cmm (130-400); Red Blood Count 4.52 10^6/uL (4.1-5.3); Red Cell Distribution Width 13.8 % (12.1-15.1); White Blood Count 5.4 10^3/uL (4.0-10.0)
[2022-08-10 12:07] LABS: Alanine Aminotransferase 22 U/L (0-41); Albumin Level 4.3 g/dL (3.5-5.2); Alkaline Phosphatase 106 U/L (40-130); Anion Gap 14.4 (5-19); Aspartate Amino Transferase 27 U/L (0-40); Blood Urea Nitrogen 13 mg/dL (8-23); Calcium 9.3 mg/dL (8.5-10.5); Carbon Dioxide 27 mmol/L (22-29); Chloride 106 mmol/L (98-107); Globulin 2.5 g/dL (1.3-4.6); Glucose 110 mg/dL (65-115); Osmolality Calculated 297 mOsm/kg (285-295); Potassium 4.4 mmol/L (3.5-5.1); Sodium 143 mmol/L (136-145); Total Bilirubin 0.6 mg/dL (0.15-1.2); Total Protein 6.8 g/dL (6.6-8.7)
== END 2022-08-14 23:59 | disposition home or self-care (01) ==
PROVIDERS: Absent Provider Internal Medicine Hematology & Oncology; Visit Provider Radiology Radiation Oncology
DX: Z08 Encounter for follow-up examination after completed treatment for malignant neoplasm (principal); Z92.3 Personal history of irradiation; Z92.21 Personal history of antineoplastic chemotherapy; Z87.891 Personal history of nicotine dependence; Z85.118 Personal history of other malignant neoplasm of bronchus and lung; Z95.828 Presence of other vascular implants and grafts
CPT/HCPCS: 36591; 80053; 85025; 99213

== ENCOUNTER 2022-11-11 08:56 | Oncology outpatient (recurring) (ONCR) | payer OTHER, SELFPAY ==
[2022-11-11 09:24] VITALS: BP 126/76; PULSE 75; RESP 18; TEMP 36.2; O2SAT 92
[2022-11-11 09:41] LABS: Basophils # 0.1 10^3/uL (0.0-0.1); Basophils % 0.7 %; Eosinophils # 0.1 10^3/uL (0.0-0.8); Eosinophils % 1.7 %; Hematocrit 44.3 % (42.0-52.0); Hemoglobin 14.3 g/dL (11.7-16.6); Lymphocytes # 0.9 10^3/uL (0.8-4.8); Lymphocytes % 12.6 %; Mean Corpuscular HGB Conc 32.3 g/dL (30.0-36.0); Mean Corpuscular Hemoglobin 32.6 pg (28.0-34.0); Mean Corpuscular Volume 101.1 fl (80-94); Mean Platelet Volume 10.3 fL (7.4-10.4); Monocytes # 0.7 10^3/uL (0.2-0.9); Monocytes % 9.9 %; Neutrophils # 5.38 10^3/uL (1.8-7.7); Nucleated Red Blood Cells % 0 %; Platelet Count 154 10^3/cmm (130-400); Red Blood Count 4.38 10^6/uL (4.1-5.3); Red Cell Distribution Width 13.1 % (12.1-15.1); White Blood Count 7.2 10^3/uL (4.0-10.0)
[2022-11-11 10:02] LABS: Alanine Aminotransferase 19 U/L (0-41); Albumin Level 4.4 g/dL (3.5-5.2); Alkaline Phosphatase 104 U/L (40-130); Anion Gap 14.1 (5-19); Aspartate Amino Transferase 22 U/L (0-40); Blood Urea Nitrogen 9 mg/dL (8-23); Calcium 9.3 mg/dL (8.5-10.5); Carbon Dioxide 29 mmol/L (22-29); Chloride 104 mmol/L (98-107); Globulin 1.9 g/dL (1.3-4.6); Glucose 119 mg/dL (65-115); Osmolality Calculated 296 mOsm/kg (285-295); Potassium 4.1 mmol/L (3.5-5.1); Sodium 143 mmol/L (136-145); Total Bilirubin 0.5 mg/dL (0.15-1.2); Total Protein 6.3 g/dL (6.6-8.7)
== END 2022-11-14 23:59 | disposition home or self-care (01) ==
PROVIDERS: Nurse Practitioner Family; Absent Provider Internal Medicine Hematology & Oncology; Visit Provider Radiology Radiation Oncology
DX: C34.92 Malignant neoplasm of unspecified part of left bronchus or lung (principal)
CPT/HCPCS: 36591; 80053; 85025; J1642